=== PATIENT | male | born 1940 | race Caucasian/White ===

== ENCOUNTER → 2016-10-26 | Outpatient (CLI) | payer OTHER ==
[2014-09-27 09:19] VITALS: BP 125/60
[~2016-10-26] MED LIST: ACET500T33 PO; AMIO200T2 PO; ASPI81TA2 PO; CARV3.122 PO; CHOL200044 PO; CITA10TA4 PO; DOCU-27 PO; DOCU50CA9 PO; GEMF600T3 PO; GLIP5TAB22 PO; HYDR-2869 PO; Hydrocodone/Acetaminophen PO; LANS15TA5 PO; LEVO50TA5 PO; METF500T4 PO; MINO2.5T12 PO; MULT-246 PO; NAPR220T70 PO; NITR0.4T SL; OLME40TA PO; OMEG1CAP30 PO; OMEG1CAP6 PO; PRAS10TA9 PO; SIMV40TA3 PO; ZOLP10TA PO; ZOLP10TA4 PO
== END | disposition home or self-care (01) ==
LOC: PF 07:42
PROVIDERS: ATTEND Internal Medicine Cardiovascular Disease
DX: Z51.81 Encounter for therapeutic drug level monitoring (principal)
CPT/HCPCS: 94010; 94729

== ENCOUNTER 2017-06-12 06:35 | Outpatient (CLI) | payer OTHER ==
[2017-06-12] MEDS ORDERED: IODIXANOL 320 MG/ML 100 ML VIAL. (07:04)
[2017-06-12] MEDS ORDERED: LIDOCAINE 2% 20 ML VIAL. (07:04)
[2017-06-12 07:27] LABS: HEMATOCRIT 37.4 % (39.0-53.0); HEMOGLOBIN 12.3 g/dL (13.0-17.5); MEAN CORPUSCULAR HEMOGLOBIN 29 pg (25-35); MEAN CORPUSCULAR HGB CONC 33 g/dL (31-37); MEAN CORPUSCULAR VOLUME 88 fL (79-100); PLATELET COUNT 197 x10^3/uL (140-400); RED BLOOD COUNT 4.27 x10^6/uL (4.30-5.70); RED CELL DISTRIBUTION WIDTH 13.8 % (11.5-14.5); WHITE BLOOD COUNT 9.2 x10^3/uL (4.0-11.0)
[2017-06-12 07:38] LABS: PROTHROMBIN TIME PATIENT 12.8 SEC (11.7-14.0)
[2017-06-12 08:01] LABS: ANION GAP 12 (6-14); BLOOD UREA NITROGEN 30 mg/dL (8-26); CALCIUM 8.9 mg/dL (8.5-10.1); CARBON DIOXIDE 25 mmol/L (21-32); CHLORIDE 104 mmol/L (98-107); CREATININE 1.3 mg/dL (0.7-1.3); GFR 53.7; GLUCOSE 253 mg/dL (70-99); POTASSIUM 4.5 mmol/L (3.5-5.1); SODIUM 141 mmol/L (136-145)
[2017-06-12] MEDS ORDERED: FAMOTIDINE 20 MG/2 ML VIAL (08:03)
[2017-06-12] MEDS ORDERED: diphenhydrAMINE 50 MG/ML VIAL (08:04)
[2017-06-12] MEDS ORDERED: MIDAZOLAM HCL/PF 2 MG/2 ML VIAL. (08:04)
[2017-06-12] MEDS ORDERED: fentaNYL PF VIAL 100 MCG/2 ML VIAL (08:04)
[2017-06-12] MEDS: FAMOTIDINE 20 MG/2 ML VIAL IVP (08:05)
[2017-06-12] MEDS: diphenhydrAMINE 50 MG/ML VIAL IVP (08:06)
[2017-06-12] MEDS ORDERED: HEPARIN for IV BOLUS 10,000 UNIT/10 ML VIAL. (08:29)
[2017-06-12] MEDS: HEPARIN for IV BOLUS 10,000 UNIT/10 ML VIAL. IART (08:45)
[2017-06-12] MEDS: fentaNYL PF VIAL 100 MCG/2 ML VIAL IV (08:45)
[2017-06-12] MEDS: LIDOCAINE 2% 20 ML VIAL. IJ (08:45)
[2017-06-12] MEDS: IODIXANOL 320 MG/ML 100 ML VIAL. IART (08:45)
[2017-06-12] MEDS: MIDAZOLAM HCL/PF 2 MG/2 ML VIAL. IV (08:45)
[2017-06-12] MEDS ORDERED: CONTRAST GIVEN MC (09:00)
[2017-06-12] MEDS ORDERED: 0.9 % SODIUM CHLORIDE 10 ML DISP.SYRIN. IV (10:45)
[2017-06-12] MEDS ORDERED: NITROGLYCERIN SUBLINGUAL 0.4 MG BOTTLE OF 25. SL (10:45)
== END 2017-06-12 13:09 | disposition home or self-care (01) ==
LOC: CCL 06:35
DX: I70.293 Other atherosclerosis of native arteries of extremities, bilateral legs (principal); I25.10 Atherosclerotic heart disease of native coronary artery without angina pectoris; I10 Essential (primary) hypertension; E78.5 Hyperlipidemia, unspecified
CPT/HCPCS: 36246; 36415; 75625; 75630; 75716; 80048; 85027; 85610; 99151; 99153; C1769; C1892; J1200; J1644; J2250; J3010; S0028

== ENCOUNTER → 2017-08-11 | Outpatient (CLI) | payer OTHER ==
[2017-08-11] MEDS: REGADENOSON 0.4 MG/5 ML DISP.SYRIN. IV (09:41)
== END | disposition home or self-care (01) ==
LOC: NM 08:30
DX: I25.10 Atherosclerotic heart disease of native coronary artery without angina pectoris (principal); I44.7 Left bundle-branch block, unspecified; E11.9 Type 2 diabetes mellitus without complications; Z79.01 Long term (current) use of anticoagulants; Z87.891 Personal history of nicotine dependence
CPT/HCPCS: 78452; 93017; 96374; 96375; 96376; A9500; J2785

== ENCOUNTER → 2018-08-08 | Outpatient (CLI) | payer MEDICARE, OTHER ==
[2017-06-12 12:20] VITALS: BP 141/64
[~2018-08-08] MED LIST changes: -AMIO200T2 PO; +AMIO200T4 PO; +APIX5TAB PO; +ASPI-630 PO; -ASPI81TA2 PO; +CARV3.1210 PO; -CARV3.122 PO; +DOCU-109 PO; -DOCU-27 PO; +FERR325T72 PO; -GEMF600T3 PO; +GEMF600T8 PO; -LANS15TA5 PO; +LANS15TA6 PO; +LEVO75TA5 PO; +METF500T16 PO; -METF500T4 PO; +METO-239 PO; -OLME40TA PO; +OLME40TA12 PO; +POLY17PO29 PO; +VALS160T3 PO; +[UNRECOGNIZED DRUG - CODE] PO
--- NOTE | 2018-08-08 15:02 | CARD ---
MR#: [id number] Date of Study: 08/08/2018 Ordering Physician: HUSSEIN CHACON, Referring Physician: HUSSEIN CHACON, Tech: Guerita Torres APPROVED REPORT EXAM: Two-dimensional and M-mode echocardiogram with Doppler and color Doppler. Other Information Quality : FairHR: 63bpm Technically limited study due to body habitus. INDICATION Cardiomyopathy RISK FACTORS Hypertension Hyperlipidemia Diabetes Previous smoker 2D DIMENSIONS RVDd4.4 (2.9-3.5cm)Left Atrium(2D)4.9 (1.6-4.0cm) IVSd1.6 (0.7-1.1cm)Aortic Root(2D)3.2 (2.0-3.7cm) LVDd6.1 (3.9-5.9cm)LVOT Diameter2.5 (1.8-2.4cm) PWd1.6 (0.7-1.1cm)LVDs4.4 (2.5-4.0cm) FS (%) 27.9 %SV98.7 ml LVEF(%)53.2 (>50%) Aortic Valve AoV Peak Derek.153.9cm/sAoV VTI36.1cm AO Peak GR.9.5mmHgLVOT Peak Derek.96.9cm/s AO Mean GR.5mmHgAVA (VMAX)3.01cm2 Mitral Valve MV E Tmncwaln47.7cm/sMV DECEL [id number] MV A Jkvrnlys84.4cm/sE/A Ratio1.1 Pulmonary Valve PV Peak Wdhkvipe99.9cm/s Tricuspid Valve TR P. Umbepmdg893oj/sRAP PDKZCMAB3otDo TR Peak Gr.85yoNyWCUR24lrBv Pulmonary Vein S1 Jawpmcjl92.7cm/sD2 Zeizvvcc40.6cm/s PVa [id number] LEFT VENTRICLE Technically difficult study. The Left Ventricle is mildly dilated. Proximal septal thickening is note d. The left ventricular systolic function is mildly decreased. The Ejection Fraction is estimated at 40%. There is mild global hypokinesis of the left ventricle. Transmitral Doppler flow pattern is Grad e II-pseudonormal filling dynamics. RIGHT VENTRICLE The right ventricle is normal size. There is normal right ventricular wall thickness. The right ventr icular systolic function is normal. ATRIA The left atrium is mildly dilated. The right atrium size is normal. The interatrial septum is intact with no evidence for an atrial septal defect or patent foramen ovale as noted on 2-D or Doppler imagi ng. AORTIC VALVE The aortic valve is normal in structure and function. Doppler and Color Flow revealed no significant aortic regurgitation. There is no significant aortic valvular stenosis. MITRAL VALVE The mitral valve is normal in structure and function. There is no evidence of mitral valve prolapse. There is no mitral valve stenosis. Doppler and Color Flow revealed mild mitral valve regurgitation. TRICUSPID VALVE The tricuspid valve is normal in structure and function. Doppler and Color Flow revealed trace to mil d tricuspid regurgitation. There is no tricuspid valve stenosis. PULMONIC VALVE The pulmonary valve is normal in structure and function. Doppler and Color Flow revealed trace pulmon ic valvular regurgitation. GREAT VESSELS The aortic root is normal in size. The IVC was not visualized. PERICARDIAL EFFUSION There is no evidence of significant pericardial effusion. Critical Notification Critical Value: No <Conclusion> Technically difficult study. The Left Ventricle is mildly dilated. The left ventricular systolic function is mildly decreased. The Ejection Fraction is estimated at 40%. There is mild global hypokinesis of the left ventricle. There is no significant aortic valvular stenosis. Doppler and Color Flow revealed no significant aortic regurgitation. Doppler and Color Flow revealed mild mitral valve regurgitation. Doppler and Color Flow revealed trace to mild tricuspid regurgitation. Signed by : Hussein Chacon MD Electronically Approved : 08/08/2018 15:02:11
== END | disposition home or self-care (01) ==
LOC: ECHO 12:43
PROVIDERS: ATTEND Internal Medicine Cardiovascular Disease
DX: I34.0 Nonrheumatic mitral (valve) insufficiency (principal); I42.9 Cardiomyopathy, unspecified
CPT/HCPCS: 93306

== ENCOUNTER 2018-09-12 18:52 | Inpatient (IN) | payer MEDICARE, OTHER ==
[~2018-09-12] VITALS: Ht 170.2 cm; Wt 106.3 kg
[~2018-09-12 18:52] MED LIST changes: -FERR325T72 PO; -LEVO75TA5 PO; -METO-239 PO; -POLY17PO29 PO; -[UNRECOGNIZED DRUG - CODE] PO
[2018-09-12] MEDS ORDERED: IV NORMAL SALINE 500ML BAG 500 ML IV ONE (19:30)
--- NOTE | 2018-09-12 19:47 | PHYS DOC ---
Past Medical History Past Medical History: Arthritis, CAD, Diabetes-Type II, Other Additional Past Medical Histor: neuropathy Past Surgical History: Other Additional Past Surgical Histo: L3-4, heart stent, leg stent Alcohol Use: None Drug Use: None Adult General Chief Complaint Chief Complaint: DIZZY/LIGHT HEADED HPI HPI 78-year-old male presents to ER via POV for complaints of dizziness. Patient reports his blood pressure at home was 98 systolic and he had taken his blood pressure medication this morning which she had recently stopped taking. He reports when he went to stand up just prior to arrival to ER he became dizzy denies falls, loss of consciousness, or headache. Patient states he has had intermittent headache over the past few weeks denies confusion, falls, or recent injury. He reports over the past several days he has had darker stools. He reports he has had some lower abdominal pain reporting history of diverticulitis. He states he was started on Flagyl and Cipro yesterday by his primary care physician. Patient reports he is on Eliquis for history of CABG. Patient denies any chest pain. He reports he has felt more PVCs in the past several days with exertion and activity. He denies vomiting or diarrhea episodes. Patient's Lea at bedside states she feels patient had fever patient is afebrile at this time. RN reported that patient had mentioned to her that he had a phone call this morning reporting his hemoglobin was 7.4. Review of Systems Review of Systems Constitutional: Reports felt feverish last night. Reports generalized fatigue. Denies loss of consciousness or confusion Eyes: Denies change in visual acuity, redness, or eye pain [] HENT: Denies nasal congestion or sore throat [] Respiratory: Denies cough or shortness of breath [] Cardiovascular: Reports he has been feeling PVCs/palpitations. Denies chest pain GI: Denies nausea, vomiting, bloody stools or diarrhea. Reports lower mid to left side abdominal pain. Reports feels bloated : Denies urinary sxs Musculoskeletal: Denies back/neck pain or joint pain [] Integument: Denies rash or skin lesions [] Neurologic: Denies focal weakness or sensory changes. Reports intermittent dizziness. Reports intermittent headache. Endocrine: Denies polyuria or polydipsia [] All other systems were reviewed and found to be within normal limits, except as documented in this note. Current Medications Current Medications Current Medications Medications (Trade) Dose Ordered Sig/Jadyn Start Time Stop Time Status Last Admin Dose Admin Sodium Chloride 500 ml @ 500 mls/hr 1X ONCE 09/12/18 19:30 09/12/18 20:29 DC 09/12/18 20:11 500 MLS/HR Allergies Allergies Physical Exam Physical Exam Constitutional: Well developed, well nourished, no acute distress, non-toxic appearance. Clear speech HENT: Normocephalic, atraumatic, bilateral ears normal, mucous membranes pale/ moist, no oral exudates, nose normal. Facial skin tone pale Eyes: PERRLA, no nystagmus, conjunctiva pale, no discharge. [] Neck: Normal range of motion, no tenderness, supple, no stridor. [] Cardiovascular: Heart rate regular rhythm, no murmur [] Lungs & Thorax: Bilateral breath sounds clear to auscultation- resp. equal/ nonlabored Abdomen: Bowel sounds normal, soft/obese, tender on palp. mid lower to left lower abd, no masses, no pulsatile masses. [] Skin: Warm, dry, no erythema, no rash. [] Back: No tenderness, no CVA tenderness. [] Extremities: No tenderness, no cyanosis, no clubbing, ROM intact, 1+ bilat. pedal edema nonpitting. 2+ dorsalis pedis Neurologic: Alert and oriented X 3, normal motor function, normal sensory function, no focal deficits noted. [] Psychologic: Affect normal, judgement normal, mood normal. [] 2039 rectal exam complete with RN at bedside for web site specialist. No external hemorrhoids or palpable internal hemorrhoids on exam. No obvious gross blood. Current Patient Data Vital Signs Vital Signs Date Time Temp Pulse Resp B/P (MAP) Pulse Ox O2 Delivery O2 Flow Rate FiO2 09/12/18 21:12 63 94 09/12/18 19:00 98.5 20 171/85 (113) Room Air 98.5 Lab Values Laboratory Tests Test 09/12/18 19:10 09/12/18 19:35 09/12/18 20:40 Urine Collection Type Unknown Urine Color Yellow Urine Clarity Clear Urine pH 6.0 Urine Specific [place] 1.015 Urine Protein Negative mg/dL (NEG-TRACE) Urine Glucose (UA) Negative mg/dL (NEG) Urine Ketones (Stick) Negative mg/dL (NEG) Urine Blood Negative (NEG) Urine Nitrite Negative (NEG) Urine Bilirubin Negative (NEG) Urine Urobilinogen Dipstick 0.2 mg/dL (0.2 mg/dL) Urine Leukocyte Esterase Negative (NEG) Urine RBC 0 /HPF (0-2) Urine WBC Occ /HPF (0-4) Urine Transitional Epithelial Cells Few /LPF Urine Bacteria 0 /HPF (0-FEW) Urine Hyaline Casts Many /HPF Urine Mucus Mod /LPF White Blood Count 6.2 x10^3/uL (4.0-11.0) Red Blood Count 2.28 x10^6/uL (4.30-5.70) L Hemoglobin 7.0 g/dL (13.0-17.5) *L Hematocrit 21.0 % (39.0-53.0) *L Mean Corpuscular Volume 92 fL (79-100) Mean Corpuscular Hemoglobin 31 pg (25-35) Mean Corpuscular Hemoglobin Concent 33 g/dL (31-37) Red Cell Distribution Width 15.1 % (11.5-14.5) H Platelet Count 201 x10^3/uL (140-400) Neutrophils (%) (Auto) 58 % (31-73) Lymphocytes (%) (Auto) 27 % (24-48) Monocytes (%) (Auto) 12 % (0-9) H Eosinophils (%) (Auto) 2 % (0-3) Basophils (%) (Auto) 1 % (0-3) Neutrophils # (Auto) 3.6 x10^3uL (1.8-7.7) Lymphocytes # (Auto) 1.7 x10^3/uL (1.0-4.8) Monocytes # (Auto) 0.7 x10^3/uL (0.0-1.1) Eosinophils # (Auto) 0.1 x10^3/uL (0.0-0.7) Basophils # (Auto) 0.0 x10^3/uL (0.0-0.2) Prothrombin Time 13.9 SEC (11.7-14.0) Prothrombin Time INR 1.1 (0.8-1.1) PTT 43 SEC (24-38) H Sodium Level 141 mmol/L (136-145) Potassium Level 4.4 mmol/L (3.5-5.1) Chloride Level 104 mmol/L (98-107) Carbon Dioxide Level 22 mmol/L (21-32) Anion Gap 15 (6-14) H Blood Urea Nitrogen 50 mg/dL (8-26) H Creatinine 2.0 mg/dL (0.7-1.3) H Estimated GFR (Cockcroft-Gault) 32.6 BUN/Creatinine Ratio 25 (6-20) H Glucose Level 112 mg/dL (70-99) H Calcium Level 8.7 mg/dL (8.5-10.1) Total Bilirubin 0.2 mg/dL (0.2-1.0) Aspartate Amino Transferase (AST) 17 U/L (15-37) Alanine Aminotransferase (ALT) 21 U/L (16-63) Alkaline Phosphatase 38 U/L (46-116) L Troponin I Quantitative < 0.017 ng/mL (0.000-0.055) FX-Tda-Z-Type Natriuretic Peptide 1364 pg/mL (0-449) H Total Protein 6.9 g/dL (6.4-8.2) Albumin 3.6 g/dL (3.4-5.0) Albumin/Globulin Ratio 1.1 (1.0-1.7) Lipase 345 U/L (73-393) Stool Occult Blood Negative (NEG) Laboratory Tests 09/12/18 19:35 Laboratory Tests 09/12/18 19:35 EKG EKG EKG obtained 09/12/18 Interpreted by ER physician Radiology/Procedures Radiology/Procedures PROCEDURE: CT HEAD WO CONTRAST INDICATION: dizzy, headaches, no priors COMPARISON: None. TECHNIQUE: Axial CT images obtained through the head without intravenous contrast. One or more of the following individualized dose reduction techniques were utilized for this examination: 1. Automated exposure control; 2. Adjustment of the mA and/or kV according to patient size; 3. Use of iterative reconstruction technique. FINDINGS: No intracranial hemorrhage. No midline shift. Basal cisterns patents. Ventricles and sulci are globally prominent. No acute osseous abnormality. Orbits and paranasal sinuses unremarkable. Scattered foci of low attenuation within the white matter. Bowing of nasal septum. IMPRESSION: 1. No acute intracranial hemorrhage. 2. Scattered regions of low attenuation within the white matter. Non-specific in nature but frequently secondary to chronic small vessel ischemic disease. 3. Prominence of ventricles and sulci which is frequently secondary to age related volume loss. Electronically signed by: Jil Rogers MD (09/12/2018 8:10 PM) [facility] DICTATED and SIGNED BY: JIL ROGERS MD DATE: 09/12/182009 Course & Med Decision Making Course & Med Decision Making Pertinent Labs and Imaging studies reviewed. (See chart for details) 2039: Discussed test results with patient and his . Hemoglobin is 7.0 hematocrit 21.0 renal function elevated at 50/2.0. EKG with no acute ST elevation or STEMI and troponin was <0.017. Head CT was obtained for patient's complaints of dizziness and recent intermittent HAs results with no acute findings. Discussed plans for type and cross and transfusion of 2 units packed red cells as patient is symptomatic. Rectal exam was complete with no obvious gross blood. Admission was discussed- pt agreeable with admit plan. Spoke with Dr. Grande who is oncall for pt's PCP Dr. Mckeon and discussed pt's case. Will change orders per her request and transfuse 1 unit vs 2. Will admit to Telemetry floor for further evaluation. Pt had neg. fecal occult. Admit plan was discussed with pt and his . Pt is receiving blood transfusion when discussion was had regarding Dr. Grande's phone call. He reports he is feeling better than at time of arrival. He remains A&Ox3 and currently is denying dizziness. He reports he does continue to feel fatigued denying any other sxs. VS have remained stable. at bedside during discussion. Dragon Disclaimer Dragon Disclaimer This electronic medical record was generated, in whole or in part, using a voice recognition dictation system. Departure Departure Impression: Primary Impression: Anemia Additional Impression: Dizziness Disposition: 09 ADMITTED INPATIENT Admitting Physician: Josh Mckeon Condition: STABLE Referrals: Zakiya MCKEON MD (PCP) Scripts Metoprolol Succinate (METOPROLOL SUCCINATE ( XL )) 25 Mg Tab.er.24h 25 MG PO DAILY for heart for 30 Days, #30 TAB.SR 11 Refills Prov: Zakiya MCKEON MD 09/16/18 Ferrous Sulfate (FEOSOL) 325 Mg Tablet 325 MG PO BIDWMEALS for anemia for 30 Days, #60 TAB 2 Refills Prov: Zakiya MCKEON MD 09/16/18 Problem Qualifiers REFFITTERIN APRN Sep 12, 2018 19:47
[2018-09-12 19:50] LABS: BILIRUBIN,URINE NEGATIVE (NEG); CLARITY,URINE CLEAR; COLOR,URINE YELLOW; NITRITE,URINE NEGATIVE (NEG); PROTEIN,URINE NEGATIVE (NEG-TRACE); UROBILINOGEN,URINE 0.2 mg/dL (0.2 mg/dL)
[2018-09-12 19:51] LABS: BASO % 1 % (0-3); EOS # 0.1 x10^3/uL (0.0-0.7); EOS % 2 % (0-3); LYMPH # 1.7 x10^3/uL (1.0-4.8); LYMPH % 27 % (24-48); MEAN CORPUSCULAR HEMOGLOBIN 31 pg (25-35); MEAN CORPUSCULAR HGB CONC 33 g/dL (31-37); MEAN CORPUSCULAR VOLUME 92 fL (79-100); MONO # 0.7 x10^3/uL (0.0-1.1); MONO % 12 % (0-9); NEUT # 3.6 x10^3uL (1.8-7.7); NEUT % 58 % (31-73); PLATELET COUNT 201 x10^3/uL (140-400); RED BLOOD COUNT 2.28 x10^6/uL (4.30-5.70); RED CELL DISTRIBUTION WIDTH 15.1 % (11.5-14.5); WHITE BLOOD COUNT 6.2 x10^3/uL (4.0-11.0)
[2018-09-12 19:54] LABS: HYALINE CASTS, URINE MANY /HPF
[2018-09-12 19:55] LABS: BACTERIA,URINE 0 /HPF (0-FEW); RBC,URINE 0 /HPF (0-2); WBC,URINE OCC /HPF (0-4)
[2018-09-12 19:59] LABS: PROTHROMBIN TIME PATIENT 13.9 SEC (11.7-14.0)
[2018-09-12 20:00] LABS: CALCIUM 8.7 mg/dL (8.5-10.1); GFR 32.6; POTASSIUM 4.4 mmol/L (3.5-5.1)
[2018-09-12 20:06] LABS: ALBUMIN 3.6 g/dL (3.4-5.0); ALBUMIN/GLOBULIN RATIO 1.1 (1.0-1.7); TOTAL BILIRUBIN 0.2 mg/dL (0.2-1.0); TOTAL PROTEIN 6.9 g/dL (6.4-8.2)
--- NOTE | 2018-09-12 20:13 | RAD ---
INDICATION: dizzy, headaches, no priors COMPARISON: None. TECHNIQUE: Axial CT images obtained through the head without intravenous contrast. One or more of the following individualized dose reduction techniques were utilized for this examination: 1. Automated exposure control; 2. Adjustment of the mA and/or kV according to patient size; 3. Use of iterative reconstruction technique. FINDINGS: No intracranial hemorrhage. No midline shift. Basal cisterns patents. Ventricles and sulci are globally prominent. No acute osseous abnormality. Orbits and paranasal sinuses unremarkable. Scattered foci of low attenuation within the white matter. Bowing of nasal septum. IMPRESSION: 1. No acute intracranial hemorrhage. 2. Scattered regions of low attenuation within the white matter. Non-specific in nature but frequently secondary to chronic small vessel ischemic disease. 3. Prominence of ventricles and sulci which is frequently secondary to age related volume loss. Electronically signed by: Reza Gandhi MD (09/12/2018 8:10 PM) [facility]
[2018-09-12 20:51] LABS: FECAL OB PT NEGATIVE (NEG)
[2018-09-12 21:57] VITALS: BP 99/56
[2018-09-12 22:11] VITALS: BP 114/56
[2018-09-12] MEDS ORDERED: ACETAMINOPHEN 325 MG TABLET. PO PRN (22:30)
[2018-09-13] VITALS (14 sets, daily range): BP systolic 115–152; BP diastolic 38–107
--- NOTE | 2018-09-13 00:56 | NUR ---
The patient, LELO MENDOZA, 78 y/o, M admitted by Zakiya HERNANDEZ MD, was given written information regarding hospital policies, unit procedures and contact persons. Valuables were checked and left with . Patient in bed with at bedside.
[2018-09-13] MEDS ORDERED: LEVO75TA5 PO (01:47)
[2018-09-13] MEDS ORDERED: [UNRECOGNIZED DRUG - CODE] PO (01:47)
[2018-09-13 04:17] LABS: BASO # 0.1 x10^3/uL (0.0-0.2); BASO % 1 % (0-3); EOS # 0.1 x10^3/uL (0.0-0.7); EOS % 2 % (0-3); HEMATOCRIT 21.8 % (39.0-53.0); HEMOGLOBIN 7.2 g/dL (13.0-17.5); LYMPH # 1.6 x10^3/uL (1.0-4.8); LYMPH % 32 % (24-48); MEAN CORPUSCULAR HEMOGLOBIN 30 pg (25-35); MEAN CORPUSCULAR HGB CONC 33 g/dL (31-37); MEAN CORPUSCULAR VOLUME 91 fL (79-100); MONO # 0.6 x10^3/uL (0.0-1.1); MONO % 12 % (0-9); NEUT # 2.6 x10^3uL (1.8-7.7); NEUT % 52 % (31-73); PLATELET COUNT 171 x10^3/uL (140-400); RED CELL DISTRIBUTION WIDTH 15.5 % (11.5-14.5)
[2018-09-13 04:42] LABS: CALCIUM 8.4 mg/dL (8.5-10.1); CREATININE 1.8 mg/dL (0.7-1.3); GFR 36.8
--- NOTE | 2018-09-13 07:08 | EKG ---
[facility] [address] [place] [address] Test Date: 2018-09-12 Test Time: 19:29:49 Pat Name: LELO MENDOZA Department: Room: [facility] Gender: M Scheduling Assistant: : [id number] Requested By: ERIN NORTH Order Number: [id number] Reading MD: Canelo Fung MD Measurements Intervals [place] Rate: 59 P: RI: QRS: -12 QRSD: 110 T: 154 QT: 464 QTc: 464 Interpretive Statements ATRIAL FIBRILLATION WITH CONTROLLED VENTRICULAR RESPONSE IVCD LATERAL TWI Electronically Signed On 09-24-2018 10:04:04 CDT by Canelo Fung MD
[2018-09-13] MEDS ORDERED: PANTOPRAZOLE IV PUSH 40 MG VIAL. IVP SCH (07:30)
--- NOTE | 2018-09-13 07:36 | PDOC1 ---
History and Physical Date of Admission Date of Admission 09/12/18 Identification/Chief Complaint Chief Complaint GI Bleed Source Source: Patient History of Present Illness History of Present Illness Pt states that he has been having black stools for the past 2 weeks. On Monday noticed that he was dizzy and that his blood pressure was really low. Held all of his BP meds until he saw Dr. Mckeon on the . Dr. Mckeon started pt on Iron and antibiotics for possible diverticulitis. Pt has history of diverticulitis. Has been having a sharp stabbing pain in his lower abdomen that is intermittent since around Monday. He has issues with constipation. Last BM was yesterday am. Pt in on Eliquis and this was being held since he saw Dr. Mckeon. His felt like he may have had a fever one evening, but otherwise denies fevers and chills. He has had issues with a chronic cough over the entire winter that is non productive. Pt has known PAD with increased pain in his legs for the past couple of months. Pt has noticed that it feels like his heart is skipping beats whenever he does something that is more strenuous. Past Medical History Cardiovascular: CAD, CHF, HTN, Hyperlipidemia Pulmonary: No pertinent hx GI: Diverticulosis, GI bleed Heme/Onc: Iron deficiency Anemia Hepatobiliary: No pertinent hx Psych: No pertinent hx Rheumatologic: No pertinent hx Infectious disease: No pertinent hx ENT: No pertinent hx Renal/: Chronic renal insuff Endocrine: Diabetes, Hypothyroidism Dermatology: No pertinent hx Past Surgical History Past Surgical History: CABG, Other (back surgery) Family History Family History: Heart Disease Social History Smoke: Quit ALCOHOL: rare Drugs: None Current Medications Current Medications Current Medications Medications (Trade) Dose Ordered Sig/Jadyn Start Time Stop Time Status Last Admin Dose Admin Acetaminophen (Tylenol) 650 mg PRN Q4HRS PRN 09/12/18 22:30 09/13/18 22:29 Sodium Chloride 500 ml @ 500 mls/hr 1X ONCE 09/12/18 19:30 09/12/18 20:29 DC 09/12/18 20:11 500 MLS/HR Allergies Allergies Allergies Coded Allergies Type Severity Reaction Last Updated Verified Iodinated Contrast- Oral and IV Dye Allergy Intermediate 09/12/18 Yes ROS Review of System CONSTITUTIONAL: No fever or chills EYES: No recent changes SKIN: No rash or itching CARDIOVASCULAR: No chest pain, syncope, + palpitations, edema RESPIRATORY: No SOB, +cough GASTROINTESTINAL: No nausea, vomiting, +abdominal pain NEUROLOGICAL: No headaches or weakness ENDOCRINE: No cold or heat intolerance GENITOURINARY: No urgency, +chronic frequency of urination MUSCULOSKELETAL: No back pain or joint pain LYMPHATICS: No enlarged lymph nodes PSYCHIATRIC: No anxiety or depression Physical Exam Physical Exam GEN.: No apparent distress. Alert and oriented. HEENT: Head is normocephalic, atraumatic NECK: Supple. LUNGS: Clear to auscultation. HEART: RRR, S1, S2 present. Peripheral pulses intact ABDOMEN: Distended, nontender. Positive bowel sounds. EXTREMITIES: Without any cyanosis, 1+ pitting edema RLE NEUROLOGIC: Normal speech, normal tone PSYCHIATRIC: Normal affect, normal mood. SKIN: No ulcerations Vitals Vitals Vital Signs Date Time Temp Pulse Resp B/P (MAP) Pulse Ox O2 Delivery O2 Flow Rate FiO2 09/13/18 03:10 98.2 56 16 115/41 (65) 97 Room Air 98.2 Labs Labs Laboratory Tests Test 09/12/18 19:10 09/12/18 19:35 09/12/18 20:40 09/13/18 03:35 Urine Collection Type Unknown Urine Color Yellow Urine Clarity Clear Urine pH 6.0 Urine Specific [place] 1.015 Urine Protein Negative mg/dL (NEG-TRACE) Urine Glucose (UA) Negative mg/dL (NEG) Urine Ketones (Stick) Negative mg/dL (NEG) Urine Blood Negative (NEG) Urine Nitrite Negative (NEG) Urine Bilirubin Negative (NEG) Urine Urobilinogen Dipstick 0.2 mg/dL (0.2 mg/dL) Urine Leukocyte Esterase Negative (NEG) Urine RBC 0 /HPF (0-2) Urine WBC Occ /HPF (0-4) Urine Transitional Epithelial Cells Few /LPF Urine Bacteria 0 /HPF (0-FEW) Urine Hyaline Casts Many /HPF Urine Mucus Mod /LPF White Blood Count 6.2 x10^3/uL (4.0-11.0) 5.0 x10^3/uL (4.0-11.0) Red Blood Count 2.28 x10^6/uL (4.30-5.70) 2.40 x10^6/uL (4.30-5.70) Hemoglobin 7.0 g/dL (13.0-17.5) 7.2 g/dL (13.0-17.5) Hematocrit 21.0 % (39.0-53.0) 21.8 % (39.0-53.0) Mean Corpuscular Volume 92 fL (79-100) 91 fL (79-100) Mean Corpuscular Hemoglobin 31 pg (25-35) 30 pg (25-35) Mean Corpuscular Hemoglobin Concent 33 g/dL (31-37) 33 g/dL (31-37) Red Cell Distribution Width 15.1 % (11.5-14.5) 15.5 % (11.5-14.5) Platelet Count 201 x10^3/uL (140-400) 171 x10^3/uL (140-400) Neutrophils (%) (Auto) 58 % (31-73) 52 % (31-73) Lymphocytes (%) (Auto) 27 % (24-48) 32 % (24-48) Monocytes (%) (Auto) 12 % (0-9) 12 % (0-9) Eosinophils (%) (Auto) 2 % (0-3) 2 % (0-3) Basophils (%) (Auto) 1 % (0-3) 1 % (0-3) Neutrophils # (Auto) 3.6 x10^3uL (1.8-7.7) 2.6 x10^3uL (1.8-7.7) Lymphocytes # (Auto) 1.7 x10^3/uL (1.0-4.8) 1.6 x10^3/uL (1.0-4.8) Monocytes # (Auto) 0.7 x10^3/uL (0.0-1.1) 0.6 x10^3/uL (0.0-1.1) Eosinophils # (Auto) 0.1 x10^3/uL (0.0-0.7) 0.1 x10^3/uL (0.0-0.7) Basophils # (Auto) 0.0 x10^3/uL (0.0-0.2) 0.1 x10^3/uL (0.0-0.2) Prothrombin Time 13.9 SEC (11.7-14.0) Prothromb Time International Ratio 1.1 (0.8-1.1) Activated Partial Thromboplast Time 43 SEC (24-38) Sodium Level 141 mmol/L (136-145) 143 mmol/L (136-145) Potassium Level 4.4 mmol/L (3.5-5.1) 4.0 mmol/L (3.5-5.1) Chloride Level 104 mmol/L (98-107) 107 mmol/L (98-107) Carbon Dioxide Level 22 mmol/L (21-32) 24 mmol/L (21-32) Anion Gap 15 (6-14) 12 (6-14) Blood Urea Nitrogen 50 mg/dL (8-26) 48 mg/dL (8-26) Creatinine 2.0 mg/dL (0.7-1.3) 1.8 mg/dL (0.7-1.3) Estimated GFR (Cockcroft-Gault) 32.6 36.8 BUN/Creatinine Ratio 25 (6-20) Glucose Level 112 mg/dL (70-99) 153 mg/dL (70-99) Calcium Level 8.7 mg/dL (8.5-10.1) 8.4 mg/dL (8.5-10.1) Total Bilirubin 0.2 mg/dL (0.2-1.0) Aspartate Amino Transf (AST/SGOT) 17 U/L (15-37) Alanine Aminotransferase (ALT/SGPT) 21 U/L (16-63) Alkaline Phosphatase 38 U/L (46-116) Troponin I Quantitative < 0.017 ng/mL (0.000-0.055) WC-Glx-W-Type Natriuretic Peptide 1364 pg/mL (0-449) Total Protein 6.9 g/dL (6.4-8.2) Albumin 3.6 g/dL (3.4-5.0) Albumin/Globulin Ratio 1.1 (1.0-1.7) Lipase 345 U/L (73-393) Stool Occult Blood Negative (NEG) Laboratory Tests Test 09/12/18 19:10 09/12/18 19:35 09/12/18 20:40 09/13/18 03:35 Urine Collection Type Unknown Urine Color Yellow Urine Clarity Clear Urine pH 6.0 Urine Specific [place] 1.015 Urine Protein Negative mg/dL (NEG-TRACE) Urine Glucose (UA) Negative mg/dL (NEG) Urine Ketones (Stick) Negative mg/dL (NEG) Urine Blood Negative (NEG) Urine Nitrite Negative (NEG) Urine Bilirubin Negative (NEG) Urine Urobilinogen Dipstick 0.2 mg/dL (0.2 mg/dL) Urine Leukocyte Esterase Negative (NEG) Urine RBC 0 /HPF (0-2) Urine WBC Occ /HPF (0-4) Urine Transitional Epithelial Cells Few /LPF Urine Bacteria 0 /HPF (0-FEW) Urine Hyaline Casts Many /HPF Urine Mucus Mod /LPF White Blood Count 6.2 x10^3/uL (4.0-11.0) 5.0 x10^3/uL (4.0-11.0) Red Blood Count 2.28 x10^6/uL (4.30-5.70) 2.40 x10^6/uL (4.30-5.70) Hemoglobin 7.0 g/dL (13.0-17.5) 7.2 g/dL (13.0-17.5) Hematocrit 21.0 % (39.0-53.0) 21.8 % (39.0-53.0) Mean Corpuscular Volume 92 fL (79-100) 91 fL (79-100) Mean Corpuscular Hemoglobin 31 pg (25-35) 30 pg (25-35) Mean Corpuscular Hemoglobin Concent 33 g/dL (31-37) 33 g/dL (31-37) Red Cell Distribution Width 15.1 % (11.5-14.5) 15.5 % (11.5-14.5) Platelet Count 201 x10^3/uL (140-400) 171 x10^3/uL (140-400) Neutrophils (%) (Auto) 58 % (31-73) 52 % (31-73) Lymphocytes (%) (Auto) 27 % (24-48) 32 % (24-48) Monocytes (%) (Auto) 12 % (0-9) 12 % (0-9) Eosinophils (%) (Auto) 2 % (0-3) 2 % (0-3) Basophils (%) (Auto) 1 % (0-3) 1 % (0-3) Neutrophils # (Auto) 3.6 x10^3uL (1.8-7.7) 2.6 x10^3uL (1.8-7.7) Lymphocytes # (Auto) 1.7 x10^3/uL (1.0-4.8) 1.6 x10^3/uL (1.0-4.8) Monocytes # (Auto) 0.7 x10^3/uL (0.0-1.1) 0.6 x10^3/uL (0.0-1.1) Eosinophils # (Auto) 0.1 x10^3/uL (0.0-0.7) 0.1 x10^3/uL (0.0-0.7) Basophils # (Auto) 0.0 x10^3/uL (0.0-0.2) 0.1 x10^3/uL (0.0-0.2) Prothrombin Time 13.9 SEC (11.7-14.0) Prothromb Time International Ratio 1.1 (0.8-1.1) Activated Partial Thromboplast Time 43 SEC (24-38) Sodium Level 141 mmol/L (136-145) 143 mmol/L (136-145) Potassium Level 4.4 mmol/L (3.5-5.1) 4.0 mmol/L (3.5-5.1) Chloride Level 104 mmol/L (98-107) 107 mmol/L (98-107) Carbon Dioxide Level 22 mmol/L (21-32) 24 mmol/L (21-32) Anion Gap 15 (6-14) 12 (6-14) Blood Urea Nitrogen 50 mg/dL (8-26) 48 mg/dL (8-26) Creatinine 2.0 mg/dL (0.7-1.3) 1.8 mg/dL (0.7-1.3) Estimated GFR (Cockcroft-Gault) 32.6 36.8 BUN/Creatinine Ratio 25 (6-20) Glucose Level 112 mg/dL (70-99) 153 mg/dL (70-99) Calcium Level 8.7 mg/dL (8.5-10.1) 8.4 mg/dL (8.5-10.1) Total Bilirubin 0.2 mg/dL (0.2-1.0) Aspartate Amino Transf (AST/SGOT) 17 U/L (15-37) Alanine Aminotransferase (ALT/SGPT) 21 U/L (16-63) Alkaline Phosphatase 38 U/L (46-116) Troponin I Quantitative < 0.017 ng/mL (0.000-0.055) MH-Cbf-X-Type Natriuretic Peptide 1364 pg/mL (0-449) Total Protein 6.9 g/dL (6.4-8.2) Albumin 3.6 g/dL (3.4-5.0) Albumin/Globulin Ratio 1.1 (1.0-1.7) Lipase 345 U/L (73-393) Stool Occult Blood Negative (NEG) VTE Prophylaxis Ordered VTE Prophylaxis Devices: No VTE Pharmacological Prophylaxi: No Assessment/Plan Assessment/Plan Pt is a 78yo CM admitted for GI Bleed 1)GI Bleed- possibly from diverticulitis. Pt is allergic to iodinated contrast dye; KUB and U/S ordered. GI consulted. FOBT negative but pt with Hb of 7 on admission and history of 2 weeks of black stools. Pt's Hb normally in the 11- 12 range. Pt received 1unit of PRBC with mild increase of Hb from 7 to 7.2. Pt will be receiving another unit this morning. 2)Hypotension due to above- normotensive with BP medications being held, including benicar/HCTZ, Carvedilol and HCTZ 3)CAD- pt's Eliquis currently being held. Cardiology consulted. Pt normally on Amiodarone 200mg qday. Pt having some rhythm irregularities on tele 4)HLD- pt's Simvastatin and gemfibrozil currently being held 5)GERD- pt's Prevacid currently being held, will start Pantoprazole 6)Hypothyroidism- will hold pt's Levothyroxine for now. TSH pending 7)DM2- previous HbA1C at goal, repeat pending. Will hold pt's metformin and Glipizide. Will start SSI if needed 8)CHF- diastolic and systolic, with mild fluid overload but no significant exacerbation. Will give gentle IVF hydration and hold off on diuretics for the moment given kidney function. 9)PAD 10)Acute on CKD- pt's Cr has improved slightly on admission from 2 to 1.8. Baseline Cr around 1.2-1.3. Will give gentle IVF hydration. HU CHAPA MD Sep 13, 2018 07:36
--- NOTE | 2018-09-13 07:43 | RAD ---
CHEST AP ONLY Clinical Indication: ER PATIENT. DIZZINESS, HYPOTENSIVE. Hx CABG, CORONARY STENTS. HTN, DIABETES. PRIOR XRAY
Comparison: 11/10/2015 two-view chest x-ray exam. Findings: Sternal wires and mediastinal clips are present. Heart size is borderline to slightly enlarged. This is similar to prior exam however. Lungs are clear. There is no pneumothorax. No pleural effusion is appreciated. No acute bone abnormality. IMPRESSION: No acute cardiopulmonary process. Electronically signed by: Yaw Thomas MD (09/13/2018 7:40 AM) [facility]
[2018-09-13] MEDS ORDERED: DEXTROSE 50% 25 GM / 50ML DISP.SYRIN. IV PRN (07:45)
[2018-09-13] MEDS: INSULIN LISPRO 300 UNITS/3 ML INSULN.PEN. SQ SCH ×3 (08:00→17:00)
[2018-09-13] MEDS: IV 1/2 NORMAL SALINE 1,000 ML IV SCH ×2 (09:04→20:50)
--- NOTE | 2018-09-13 09:17 | PDOC2 ---
GI CONSULT Reason For Consult: GI Bleed HPI: HPI: 78 y/o male admitted through ER. Black stools (some formed, some loose) x 2 weeks associated w/ hypotension (says 80/35 at home) and dizziness. Also intermittent LLQ/suprapubic pain. Says he saw Dr. Mckeon int he office, was advised to stop Eliquis and to start iron for low blood count and to start Cipro and Flagyl for presumed diverticulitis (has h/o this). Hgb was 7, now 7.2 after transfusion (1 unit pRBCs). MCV 92, normal plt and INR, BUN 50 (now 48) w/ Cr 2 (now 1.8), fecal occult negative, TSH >4. For comparison, Hgb was 12 in 2018 and 11 in 2015. Last stooled yesterday. H/o GERD on Prevacid Sun, Tues, Th, and Sat. No dysphagia (though had esophageal dilation years ago). No n/v, no hematemesis. No hematochezia. No diarrhea. H/o constipation controlled w/ stool softener and fiber. No change in appetite or weight loss. No NSAIDs. Reports EGD and colonoscopy w/ Dr. Hernández in [place], [place] ~3 years ago - says shows colon polyps and diverticulosis. These records are not available at our office. Denies GB, liver, pancreas, and PUD history. Note orders for KUB and abd US. PMH: PMH: CAD w/ stents, PVD w/ stents, A Fib, [place], HTN, HLD, [place], DM, hypothyroidism, CKD , peripheral neuropathy, GERD, colon polyps, diverticulosis/itis, anxiety/ depression CABG x 2, cardiac ablation, laminectomy and microdiscectomy, tonsillectomy, cataract removal FH: Family History: No pertinent hx Social History: Smoke: Quit ALCOHOL: rare Drugs: None ROS: GEN: Denies fevers, chills, sweats HEENT: Denies blurred vision, sore throat CV: Denies chest pain RESP: Denies shortness of air, cough GI: Per HPI : Denies hematuria, dysuria ENDO: Denies weight changes NEURO: +dizziness MSK: Denies weakness, joint pain/swelling SKIN: Denies jaundice, pruritus Vitals: Vitals: Vital Signs Date Time Temp Pulse Resp B/P (MAP) Pulse Ox O2 Delivery O2 Flow Rate FiO2 09/13/18 07:00 98.2 79 18 131/54 (79) 98 Room Air 98.2 Labs: Labs: Laboratory Tests Test 09/12/18 19:10 09/12/18 19:35 09/12/18 20:40 09/13/18 03:35 Urine Collection Type Unknown Urine Color Yellow Urine Clarity Clear Urine pH 6.0 Urine Specific [place] 1.015 Urine Protein Negative mg/dL (NEG-TRACE) Urine Glucose (UA) Negative mg/dL (NEG) Urine Ketones (Stick) Negative mg/dL (NEG) Urine Blood Negative (NEG) Urine Nitrite Negative (NEG) Urine Bilirubin Negative (NEG) Urine Urobilinogen Dipstick 0.2 mg/dL (0.2 mg/dL) Urine Leukocyte Esterase Negative (NEG) Urine RBC 0 /HPF (0-2) Urine WBC Occ /HPF (0-4) Urine Transitional Epithelial Cells Few /LPF Urine Bacteria 0 /HPF (0-FEW) Urine Hyaline Casts Many /HPF Urine Mucus Mod /LPF White Blood Count 6.2 x10^3/uL (4.0-11.0) 5.0 x10^3/uL (4.0-11.0) Red Blood Count 2.28 x10^6/uL (4.30-5.70) 2.40 x10^6/uL (4.30-5.70) Hemoglobin 7.0 g/dL (13.0-17.5) 7.2 g/dL (13.0-17.5) Hematocrit 21.0 % (39.0-53.0) 21.8 % (39.0-53.0) Mean Corpuscular Volume 92 fL (79-100) 91 fL (79-100) Mean Corpuscular Hemoglobin 31 pg (25-35) 30 pg (25-35) Mean Corpuscular Hemoglobin Concent 33 g/dL (31-37) 33 g/dL (31-37) Red Cell Distribution Width 15.1 % (11.5-14.5) 15.5 % (11.5-14.5) Platelet Count 201 x10^3/uL (140-400) 171 x10^3/uL (140-400) Neutrophils (%) (Auto) 58 % (31-73) 52 % (31-73) Lymphocytes (%) (Auto) 27 % (24-48) 32 % (24-48) Monocytes (%) (Auto) 12 % (0-9) 12 % (0-9) Eosinophils (%) (Auto) 2 % (0-3) 2 % (0-3) Basophils (%) (Auto) 1 % (0-3) 1 % (0-3) Neutrophils # (Auto) 3.6 x10^3uL (1.8-7.7) 2.6 x10^3uL (1.8-7.7) Lymphocytes # (Auto) 1.7 x10^3/uL (1.0-4.8) 1.6 x10^3/uL (1.0-4.8) Monocytes # (Auto) 0.7 x10^3/uL (0.0-1.1) 0.6 x10^3/uL (0.0-1.1) Eosinophils # (Auto) 0.1 x10^3/uL (0.0-0.7) 0.1 x10^3/uL (0.0-0.7) Basophils # (Auto) 0.0 x10^3/uL (0.0-0.2) 0.1 x10^3/uL (0.0-0.2) Prothrombin Time 13.9 SEC (11.7-14.0) Prothromb Time International Ratio 1.1 (0.8-1.1) Activated Partial Thromboplast Time 43 SEC (24-38) Sodium Level 141 mmol/L (136-145) 143 mmol/L (136-145) Potassium Level 4.4 mmol/L (3.5-5.1) 4.0 mmol/L (3.5-5.1) Chloride Level 104 mmol/L (98-107) 107 mmol/L (98-107) Carbon Dioxide Level 22 mmol/L (21-32) 24 mmol/L (21-32) Anion Gap 15 (6-14) 12 (6-14) Blood Urea Nitrogen 50 mg/dL (8-26) 48 mg/dL (8-26) Creatinine 2.0 mg/dL (0.7-1.3) 1.8 mg/dL (0.7-1.3) Estimated GFR (Cockcroft-Gault) 32.6 36.8 BUN/Creatinine Ratio 25 (6-20) Glucose Level 112 mg/dL (70-99) 153 mg/dL (70-99) Calcium Level 8.7 mg/dL (8.5-10.1) 8.4 mg/dL (8.5-10.1) Total Bilirubin 0.2 mg/dL (0.2-1.0) Aspartate Amino Transf (AST/SGOT) 17 U/L (15-37) Alanine Aminotransferase (ALT/SGPT) 21 U/L (16-63) Alkaline Phosphatase 38 U/L (46-116) Troponin I Quantitative < 0.017 ng/mL (0.000-0.055) CC-Kyh-J-Type Natriuretic Peptide 1364 pg/mL (0-449) Total Protein 6.9 g/dL (6.4-8.2) Albumin 3.6 g/dL (3.4-5.0) Albumin/Globulin Ratio 1.1 (1.0-1.7) Lipase 345 U/L (73-393) Stool Occult Blood Negative (NEG) Thyroid Stimulating Hormone (TSH) 4.748 uIU/mL (0.358-3.74) Test 09/13/18 07:26 Glucose (Fingerstick) 120 mg/dL (70-99) Allergies: Coded Allergies: Iodinated Contrast- Oral and IV Dye (Verified Allergy, Intermediate, ) V TACH Medications: Current Medications Medications (Trade) Dose Ordered Sig/Jadyn Route PRN Reason Start Time Stop Time Status Last Admin Dose Admin Sodium Chloride 500 ml @ 500 mls/hr 1X ONCE IV 09/12/18 19:30 09/12/18 20:29 DC 09/12/18 20:11 Pantoprazole Sodium (PROTONIX VIAL for IV PUSH) 20 mg DAILYAC IVP 09/13/18 07:30 09/13/18 08:54 Sodium Chloride 1,000 ml @ 75 mls/hr [id number] IV 09/13/18 07:30 09/13/18 09:04 Imaging: Imaging: CXR 09/12/18 IMPRESSION: No acute cardiopulmonary process. Head CT IMPRESSION: 1. No acute intracranial hemorrhage. 2. Scattered regions of low attenuation within the white matter. Non-specific in nature but frequently secondary to chronic small vessel ischemic disease. 3. Prominence of ventricles and sulci which is frequently secondary to age related volume loss. PE: GEN: NAD HEENT: Atraumatic, PERRL LUNGS: CTAB HEART: RRR ABD: NABS, S/ND - some discomfort quiet low, almost to groin bilaterally EXTREMITY: No edema SKIN: No rashes, no jaundice NEURO/PSYCH: A & O 3 A/P: A/P: Dark stools, dizziness, hypotension, intermittent LLQ /suprapubic pain Normocytic anemia, heme neg. GERD - on PPI QOD, reports normal EGD ~3 years ago CRC screen, h/o colon polyps - had colonoscopy ~3 years ago Occasional constipation - controlled Diverticular disease CAD, A Fib, TRUPTI/CKD, hypothyroidism - Eliquis held, per primary -- NPO for EGD this afternoon. IV PPI. Check anemia parameters. Note orders for KUB and RUQ US, await these and consider CT A/P re: question of diverticulitis. Called RN - give 2nd unit of pRBCs (already ordered). SERAFIN PARKER Sep 13, 2018 09:17
--- NOTE | 2018-09-13 10:42 | PDOC2 ---
CARDIAC CONSULT DATE OF CONSULT Date of Consult DATE: 09/13/18 TIME: 10:36 REASON FOR CONSULT Reason for Consult: H/o CAD REFERRING PHYSICIAN Referring Physician: Dr. Grande SOURCE Source: Chart review, Patient HISTORY OF PRESENT ILLNESS HISTORY OF PRESENT ILLNESS This is a 78 yo male, with a history of PAFIB on Eliquis, CAD s/p CABG x2 with most recent in 1999, and PAD s/p [employer]/stenting, who presented secondary to dizziness. Patient has had dark stools for the last couple of weeks. On Monday began experiencing dizziness. Blood pressure was low. [place] okay on Monday. Monday was again dizzy. Was seen by Primary care Monday and reported symptoms of dizziness and dark stools. Eliquis and blood pressure medication was held and routine labs were obtained. Hgb was noted to be in the 7 range. Patient was recommended to go to the ED if blood pressure remained low. Most recent cath over 2 years ago; no intervention performed at that time. PAST MEDICAL HISTORY Cardiovascular: AFIB, CAD, HTN, Hyperlipidemia, Other (PVD) Pulmonary: Other (PATRICIA) CENTRAL NERVOUS SYSTEM: Other (no pertinent hx ) GI: Diverticulosis, GERD Heme/Onc: Anemia NOS Psych: Anxiety, Depression Musculoskeletal: Osteoarthritis Rheumatologic: Gout Infectious disease: No pertinent hx ENT: No pertinent hx Renal/: No pertinent hx Endocrine: Diabetes, Hypothyroidism PAST SURGICAL HISTORY Past Surgical History: CABG FAMILY HISTORY Family History: Coronary Artery Disease, Diabetes, Heart Disease, Hypertension SOCIAL HISTORY Smoke: Quit ALCOHOL: none Drugs: None Lives: with Family CURRENT MEDICATIONS CURRENT MEDICATIONS Current Medications Medications (Trade) Dose Ordered Sig/Jadyn Route PRN Reason Start Time Stop Time Status Last Admin Dose Admin Sodium Chloride 500 ml @ 500 mls/hr 1X ONCE IV 09/12/18 19:30 09/12/18 20:29 DC 09/12/18 20:11 Pantoprazole Sodium (PROTONIX VIAL for IV PUSH) 20 mg DAILYAC IVP 09/13/18 07:30 09/13/18 09:19 DC 09/13/18 08:54 Sodium Chloride 1,000 ml @ 75 mls/hr [id number] IV 09/13/18 07:30 09/13/18 09:04 ALLERGIES ALLERGIES: Coded Allergies: Iodinated Contrast- Oral and IV Dye (Verified Allergy, Intermediate, ) V TACH ROS Review of System 14 point ROS conducted with pertinent positives noted above in HPI. PHYSICAL EXAM General: Alert, Oriented X3, Cooperative, No acute distress HEENT: Atraumatic Lungs: Clear to auscultation, Normal air movement Heart: Regular rate (mainly SR. Having intermittent bursts of PAT), Normal S1, Normal S2 Abdomen: Soft, No tenderness Extremities: No cyanosis, No edema Skin: No significant lesion Neuro: Normal speech, Sensation intact Psych/Mental Status: Mental status NL, Mood NL MUSCULOSKELETAL: Osteoarthritic changes both hands (15 years ago) VITALS VITALS Vital Signs Date Time Temp Pulse Resp B/P (MAP) Pulse Ox O2 Delivery O2 Flow Rate FiO2 09/13/18 10:17 98.3 67 16 152/107 98.3 09/13/18 09:30 98 Room Air LABS Lab: Laboratory Tests Test 09/12/18 19:10 09/12/18 19:35 09/12/18 20:40 09/13/18 03:35 Urine Collection Type Unknown Urine Color Yellow Urine Clarity Clear Urine pH 6.0 Urine Specific [place] 1.015 Urine Protein Negative mg/dL (NEG-TRACE) Urine Glucose (UA) Negative mg/dL (NEG) Urine Ketones (Stick) Negative mg/dL (NEG) Urine Blood Negative (NEG) Urine Nitrite Negative (NEG) Urine Bilirubin Negative (NEG) Urine Urobilinogen Dipstick 0.2 mg/dL (0.2 mg/dL) Urine Leukocyte Esterase Negative (NEG) Urine RBC 0 /HPF (0-2) Urine WBC Occ /HPF (0-4) Urine Transitional Epithelial Cells Few /LPF Urine Bacteria 0 /HPF (0-FEW) Urine Hyaline Casts Many /HPF Urine Mucus Mod /LPF White Blood Count 6.2 x10^3/uL (4.0-11.0) 5.0 x10^3/uL (4.0-11.0) Red Blood Count 2.28 x10^6/uL (4.30-5.70) 2.40 x10^6/uL (4.30-5.70) Hemoglobin 7.0 g/dL (13.0-17.5) 7.2 g/dL (13.0-17.5) Hematocrit 21.0 % (39.0-53.0) 21.8 % (39.0-53.0) Mean Corpuscular Volume 92 fL (79-100) 91 fL (79-100) Mean Corpuscular Hemoglobin 31 pg (25-35) 30 pg (25-35) Mean Corpuscular Hemoglobin Concent 33 g/dL (31-37) 33 g/dL (31-37) Red Cell Distribution Width 15.1 % (11.5-14.5) 15.5 % (11.5-14.5) Platelet Count 201 x10^3/uL (140-400) 171 x10^3/uL (140-400) Neutrophils (%) (Auto) 58 % (31-73) 52 % (31-73) Lymphocytes (%) (Auto) 27 % (24-48) 32 % (24-48) Monocytes (%) (Auto) 12 % (0-9) 12 % (0-9) Eosinophils (%) (Auto) 2 % (0-3) 2 % (0-3) Basophils (%) (Auto) 1 % (0-3) 1 % (0-3) Neutrophils # (Auto) 3.6 x10^3uL (1.8-7.7) 2.6 x10^3uL (1.8-7.7) Lymphocytes # (Auto) 1.7 x10^3/uL (1.0-4.8) 1.6 x10^3/uL (1.0-4.8) Monocytes # (Auto) 0.7 x10^3/uL (0.0-1.1) 0.6 x10^3/uL (0.0-1.1) Eosinophils # (Auto) 0.1 x10^3/uL (0.0-0.7) 0.1 x10^3/uL (0.0-0.7) Basophils # (Auto) 0.0 x10^3/uL (0.0-0.2) 0.1 x10^3/uL (0.0-0.2) Prothrombin Time 13.9 SEC (11.7-14.0) Prothromb Time International Ratio 1.1 (0.8-1.1) Activated Partial Thromboplast Time 43 SEC (24-38) Sodium Level 141 mmol/L (136-145) 143 mmol/L (136-145) Potassium Level 4.4 mmol/L (3.5-5.1) 4.0 mmol/L (3.5-5.1) Chloride Level 104 mmol/L (98-107) 107 mmol/L (98-107) Carbon Dioxide Level 22 mmol/L (21-32) 24 mmol/L (21-32) Anion Gap 15 (6-14) 12 (6-14) Blood Urea Nitrogen 50 mg/dL (8-26) 48 mg/dL (8-26) Creatinine 2.0 mg/dL (0.7-1.3) 1.8 mg/dL (0.7-1.3) Estimated GFR (Cockcroft-Gault) 32.6 36.8 BUN/Creatinine Ratio 25 (6-20) Glucose Level 112 mg/dL (70-99) 153 mg/dL (70-99) Calcium Level 8.7 mg/dL (8.5-10.1) 8.4 mg/dL (8.5-10.1) Total Bilirubin 0.2 mg/dL (0.2-1.0) Aspartate Amino Transf (AST/SGOT) 17 U/L (15-37) Alanine Aminotransferase (ALT/SGPT) 21 U/L (16-63) Alkaline Phosphatase 38 U/L (46-116) Troponin I Quantitative < 0.017 ng/mL (0.000-0.055) BC-Siw-O-Type Natriuretic Peptide 1364 pg/mL (0-449) Total Protein 6.9 g/dL (6.4-8.2) Albumin 3.6 g/dL (3.4-5.0) Albumin/Globulin Ratio 1.1 (1.0-1.7) Lipase 345 U/L (73-393) Stool Occult Blood Negative (NEG) Iron Level 92 ug/dL (65-175) Total Iron Binding Capacity 332 ug/dL (250-450) Iron Saturation 28 % (15-34) Thyroid Stimulating Hormone (TSH) 4.748 uIU/mL (0.358-3.74) Test 09/13/18 07:26 Glucose (Fingerstick) 120 mg/dL (70-99) ECHOCARDIOGRAM ECHOCARDIOGRAM <Conclusion> Technically difficult study. The Left Ventricle is mildly dilated. The left ventricular systolic function is mildly decreased. The Ejection Fraction is estimated at 40%. There is mild global hypokinesis of the left ventricle. There is no significant aortic valvular stenosis. Doppler and Color Flow revealed no significant aortic regurgitation. Doppler and Color Flow revealed mild mitral valve regurgitation. Doppler and Color Flow revealed trace to mild tricuspid regurgitation. DATE: 08/08/18 1502 STRESS TEST STRESS TEST Conclusion 1. Regadenoson cardioisotope stress test showed large mixed perfusion defect involving the inferior, inferolateral mac and extending into the lateral wall consistent with moderate infarction and small to moderate ischemia particularly in the lateral wall. 2. Base to mid inferior wall hypokinesis with ejection fraction calculated at 43 %. 3. Intermediate risk for cardiac events. DATE: 08/11/17 1213 ASSESSMENT/PLAN ASSESSMENT/PLAN 1. Dizziness; secondary to hypotension/anemia 2. Anemia; hgb 7.0 upon arrival. S/p 1 unit PRBCs. EGD planned later today 4. PAFIB; Recent event monitor notable for SR with 1st degree. Intermittent BBB , occasional episodes of junctional rhythm with lower rate 39, and occasional episodes of paroxysmal atrial tachycardia with aberrancy. ? tachy/bettina 5. CAD s/p CABG; initial in and redo in 1999. Also s/p PCI/ multiple stents pre and post CABG in 1999. 6. PAD s/p previous stenting; Follows with Dr. Wilkerson. Opted for medical management due to manageable symptoms initially. Claudications symptoms worse recently and would like to consider revascularization at some point. 7. Chronic systolic HF; clinically compensated 8. ICM; LVEF 40% 9. Hypertension; controlled 10. Hyperlipidemia; statin 11. Diabetes, II 12. TRUPTI 13. Hypothyroidism Recommendations Resume Amiodarone for rhythm maintenance Continue Coreg. Unable to uptitrate or convert to metoprolol due to episodes of bradycardia May hold anticoagulation therapy for now with pending GI workup Obviously high risk without antiplatelet/anticoagulations therapy given extensive h/o CAD, PAD, and PAFIB. ASA for now if okay with GI ANABELL CHEUNG APRN Sep 13, 2018 10:42
[2018-09-13] MEDS ORDERED: fentaNYL PF VIAL 100 MCG/2 ML VIAL IV PRN ×2 (13:45)
[2018-09-13] MEDS ORDERED: MIDAZOLAM HCL/PF 2 MG/2 ML VIAL. IV PRN (13:45)
[2018-09-13] MEDS ORDERED: LIDOCAINE 1% PF 2 ML VIAL. ID PRN (13:45)
[2018-09-13] MEDS: IV RINGERS,LACTATED 1000ML 1,000 ML IV SCH ×2 (13:49→21:45)
[2018-09-13] MEDS ORDERED: PROPOFOL 20 ML IV ONE (14:27)
[2018-09-13] MEDS ORDERED: LIDOCAINE 2% 100 MG/5 ML SYRINGE. ONE (14:28)
--- NOTE | 2018-09-13 15:07 | PDOC4 ---
Operative Note Operative Note EGD Meds propofol per anesthesia Pre-op dx acute blood loss anemia/melena Post-op dx non-erosive gastritis Plan serial cbcs bleeding scan if bleeding resumes eventual colonoscopy and possible o/p capsule endoscopy resume diet PALLAVI PFEIFFER MD Sep 13, 2018 15:07
[2018-09-13] MEDS: CARVEDILOL 3.125 MG TABLET. PO SCH (17:00)
--- NOTE | 2018-09-13 17:14 | RAD ---
Examination: Ultrasound abdomen limited HISTORY: History of lower abdominal pain COMPARISON: None available FINDINGS: The liver length measures 19.2 cm. The common bile duct measures 4.7 mm in transverse dimension. The pancreas is not well-visualized due to bowel gas. Multiple echogenicities identified within the gallbladder likely gallstones. The gallbladder wall thickness measures 3.4 mm. The right kidney measures 10.8 cm in length. The visualized IVC within normal limits of dimension. IMPRESSION: 1. Cholelithiasis with mild thickened appearance of the gallbladder wall. No ultrasonographic evidence of Torres's sign. 2. Examination limited due to patient body habitus. Electronically signed by: Jerardo Chance MD (09/13/2018 5:11 PM) [id number]
[2018-09-13] MEDS: AMIODARONE HCL 200 MG TABLET. PO SCH (20:12)
[2018-09-14] VITALS (7 sets, daily range): BP systolic 101–166; BP diastolic 50–67
[2018-09-14 00:09] LABS: HEMOGLOBIN A1C 5.5 % (4.8-5.6)
[2018-09-14 04:27] LABS: HEMATOCRIT 24.8 % (39.0-53.0); HEMOGLOBIN 8.3 g/dL (13.0-17.5); RED BLOOD COUNT 2.77 x10^6/uL (4.30-5.70); RED CELL DISTRIBUTION WIDTH 15.3 % (11.5-14.5); WHITE BLOOD COUNT 5.2 x10^3/uL (4.0-11.0)
--- NOTE | 2018-09-14 04:35 | PDOC ---
SUBJECTIVE Subjective Pt feeling well. Pain in lower abdomen has not reoccured since yesterday morning. Pt says that he was told old blood was seen on his EGD but no new blood. Labs for this morning have not been drawn yet. Discussed likely discharge today if Hb remains stable or has increased. Will resume some of his home medications, continuing to hold BP meds. Pt initially seen at 0400. Since pt was seen he has had some more bleeding. Lab results have returned. Pt had GI bleeding scan done today as well. Keeping overnight. OBJECTIVE Vital Signs Vital Signs Date Time Temp Pulse Resp B/P (MAP) Pulse Ox O2 Delivery O2 Flow Rate FiO2 09/14/18 03:25 97.9 62 18 141/51 (81) 95 Room Air 97.9 09/13/18 23:25 97.9 60 18 135/44 (74) 98 Room Air 97.9 09/13/18 20:12 60 117/49 09/13/18 19:30 Room Air 09/13/18 19:25 98.7 60 18 117/49 (71) 95 Room Air 98.7 09/13/18 17:00 61 104/48 09/13/18 15:30 98.6 63 20 133/72 96 Room Air 98.6 09/13/18 15:20 98.6 61 20 112/73 96 Room Air 98.6 09/13/18 15:10 98.6 59 20 89/59 95 Nasal Cannula 3 98.6 09/13/18 15:05 98.6 68 20 89/59 94 Room Air 3 98.6 09/13/18 15:00 98.0 62 18 130/56 (80) 98 Room Air 98.0 09/13/18 13:39 Room Air 09/13/18 13:37 98.6 77 18 96 98.6 09/13/18 13:30 98.6 77 18 119/81 98.6 09/13/18 12:48 98.0 59 18 148/59 98.0 09/13/18 12:08 98.4 61 16 147/61 98.4 09/13/18 11:45 98.0 74 18 140/58 (85) 98 Room Air 98.0 09/13/18 10:45 98.1 53 16 132/46 98.1 09/13/18 10:17 98.3 67 16 152/107 98.3 09/13/18 09:30 98.4 64 18 141/64 (89) 98 Room Air 98.4 09/13/18 08:00 Room Air 09/13/18 07:00 98.2 79 18 131/54 (79) 98 Room Air 98.2 I & O Intake and Output 09/14/18 07:00 Intake Total 7 ml Output Total 1000 ml Balance -993 ml Intake Oral 0 ml Blood Product IV Normal Saline Flush 7 ml Output Urine Total 1000 ml PHYSICAL EXAM Physical Exam GEN.: No apparent distress. Alert and oriented. HEENT: Head is normocephalic, atraumatic NECK: Supple. LUNGS: Clear to auscultation. HEART: RRR, S1, S2 present. Peripheral pulses intact ABDOMEN: Distended, nontender. Positive bowel sounds. EXTREMITIES: Without any cyanosis, 1+ pitting edema RLE NEUROLOGIC: Normal speech, normal tone PSYCHIATRIC: Normal affect, normal mood. SKIN: No ulcerations ASSESSMENT/PLAN Assessment/Plan Pt is a 78yo CM admitted for GI Bleed 1)GI Bleed- possibly from diverticulitis. Pt is allergic to iodinated contrast dye; KUB and U/S ordered which only showed cholelithiasis; pt asymptomatic with that. Pt had EGD yesterday which showed old blood but no active bleeding. Bleeding scan did not show any active bleeding. Pt had mild increase of Hb from 7 to 7.2 after receiving 1 unit and then increase to 9 after the 2nd unit. Pt had drop again this morning to 8.3. Pt staying overnight. Repeat labs ordered. Pt taking iron. GI Following 2)Hypotension due to above- normotensive with BP medications being held, including benicar/HCTZ, Carvedilol and HCTZ 3)CAD- pt's Eliquis currently being held. Cardiology following. Pt has been resumed on Amiodarone 200mg qday and currently is getting ASA 4)HLD- pt's Simvastatin and gemfibrozil restarted 5)GERD- pt's Prevacid currently being held, started on Pantoprazole 6)Hypothyroidism- pt's TSH mildly elevated. Can increase dose of levothyroxine on discharge. 7)DM2- HbA1C well controlled and BS currently well controlled without medications. Has SSI available. 8)CHF- diastolic and systolic, with mild fluid overload but no significant exacerbation. Pt has been receiving gentle IVF hydration 9)PAD 10)Acute on CKD- pt's Cr has improved back to baseline from 2 to 1.3 with IVF hydration. COMMENT Lab Laboratory Tests Test 09/13/18 07:26 09/13/18 11:33 09/13/18 16:20 09/13/18 16:51 Glucose (Fingerstick) 120 mg/dL (70-99) 131 mg/dL (70-99) 112 mg/dL (70-99) Hemoglobin 9.0 g/dL (13.0-17.5) Test 09/13/18 23:00 09/14/18 03:55 Glucose (Fingerstick) 107 mg/dL (70-99) White Blood Count 5.2 x10^3/uL (4.0-11.0) Red Blood Count 2.77 x10^6/uL (4.30-5.70) Hemoglobin 8.3 g/dL (13.0-17.5) Hematocrit 24.8 % (39.0-53.0) Mean Corpuscular Volume 89 fL (79-100) Mean Corpuscular Hemoglobin 30 pg (25-35) Mean Corpuscular Hemoglobin Concent 34 g/dL (31-37) Red Cell Distribution Width 15.3 % (11.5-14.5) Platelet Count 200 x10^3/uL (140-400) HU YOUNG MD Sep 14, 2018 04:35
[2018-09-14] MEDS ORDERED: NITROGLYCERIN SUBLINGUAL 0.4 MG BOTTLE OF 25. SL PRN (04:45)
[2018-09-14 04:47] LABS: CALCIUM 8.4 mg/dL (8.5-10.1); CREATININE 1.3 mg/dL (0.7-1.3); GFR 53.5; POTASSIUM 4.2 mmol/L (3.5-5.1)
[2018-09-14 04:56] LABS: CHOLESTEROL/HDL RATIO 4.4
[2018-09-14] MEDS: LEVOTHYROXINE 75 MCG TABLET PO SCH (06:00)
[2018-09-14] MEDS: IV 1/2 NORMAL SALINE 1,000 ML IV SCH ×2 (07:12→22:35)
[2018-09-14] MEDS ORDERED: PANTOPRAZOLE IV PUSH 40 MG VIAL. IVP SCH (07:30)
[2018-09-14] MEDS: INSULIN LISPRO 300 UNITS/3 ML INSULN.PEN. SQ SCH ×3 (08:00→17:00)
[2018-09-14] MEDS: GEMFIBROZIL 600 MG TABLET. PO SCH ×3 (08:44→21:14)
[2018-09-14] MEDS: CARVEDILOL 3.125 MG TABLET. PO SCH ×2 (08:45→17:26)
--- NOTE | 2018-09-14 09:08 | PDOC ---
Subjective: Subjective: Just had a black stool. Tolerating PO. Denies abd pain. No dizziness. Knew about gallstones. Objective: Vital Signs: Vital Signs Date Time Temp Pulse Resp B/P (MAP) Pulse Ox O2 Delivery O2 Flow Rate FiO2 09/14/18 08:45 64 166/67 09/14/18 07:00 98.4 18 95 Room Air 98.4 09/13/18 15:10 3 Labs: Laboratory Tests Test 09/13/18 11:33 09/13/18 16:20 09/13/18 16:51 09/13/18 23:00 Glucose (Fingerstick) 131 mg/dL 112 mg/dL 107 mg/dL Hemoglobin 9.0 g/dL Test 09/14/18 03:55 09/14/18 07:31 White Blood Count 5.2 x10^3/uL Red Blood Count 2.77 x10^6/uL Hemoglobin 8.3 g/dL Hematocrit 24.8 % Mean Corpuscular Volume 89 fL Mean Corpuscular Hemoglobin 30 pg Mean Corpuscular Hemoglobin Concent 34 g/dL Red Cell Distribution Width 15.3 % Platelet Count 200 x10^3/uL Sodium Level 140 mmol/L Potassium Level 4.2 mmol/L Chloride Level 105 mmol/L Carbon Dioxide Level 23 mmol/L Anion Gap 12 Blood Urea Nitrogen 36 mg/dL Creatinine 1.3 mg/dL Estimated GFR (Cockcroft-Gault) 53.5 Glucose Level 139 mg/dL Calcium Level 8.4 mg/dL Triglycerides Level 142 mg/dL Cholesterol Level 136 mg/dL LDL Cholesterol, Calculated 77 mg/dL VLDL Cholesterol, Calculated 28 mg/dL Non-HDL Cholesterol Calculated 105 mg/dL HDL Cholesterol 31 mg/dL Cholesterol/HDL Ratio 4.4 Glucose (Fingerstick) 155 mg/dL Imaging: EGD 09/13 non-erosive gastritis Abd US 09/13 IMPRESSION: 1. Cholelithiasis with mild thickened appearance of the gallbladder wall. No ultrasonographic evidence of Torres's sign. 2. Examination limited due to patient body habitus. PE: GEN: NAD LUNGS: NC HEART: RRR ABD: S/ND/NT NEURO/PSYCH: A & O 3 A/P: Dark stools, anemia -h/o GERD on PPI, EGD yesterday unrevealing -last colonoscopy ~3 years ago, h/o polyps and diverticulosis CAD, PVD, A Fib, CKD -Eliquis and ASA on hold Cholelithiasis -- Reviewed w/ Dr. aJmison - had a dark stool this morning, proceed w/ bleeding scan. Will plan for outpt colonoscopy and possible SBCE pending clinical course. Discussed PO iron w/ pt and - use Miralax if needed. PO PPI. Will review recs for restarting Eliquis and ASA w/ Dr. Jamison. SERAFIN PARKER Sep 14, 2018 09:08
[2018-09-14] MEDS ORDERED: POLYETHYLENE GLYCOL 3350 17 GM PACKET. PO PRN (09:15)
--- NOTE | 2018-09-14 09:35 | NUR ---
Attempted IV start x3 without success, into RFA, LH, & LFA, will notify charge nurse for assistance
[2018-09-14] MEDS ORDERED: HEPARIN for NUC MED 500 UNIT/5 ML DISP.SYRIN. IV ONE (10:15)
[2018-09-14] MEDS: FERROUS SULFATE 325 MG TABLET. PO SCH ×2 (10:30→17:25)
[2018-09-14] MEDS: POLYETHYLENE GLYCOL 3350 17 GM PACKET. PO SCH (10:30)
--- NOTE | 2018-09-14 11:37 | NUR ---
Telemetry rhythm SB with 1st degree AV block per charge nurse-MARC Renee
--- NOTE | 2018-09-14 12:08 | PDOC ---
CARDIO Progress Notes Date and Time Date of Service 09/14/2018 Time of Evaluation 1140 Subjective Subjective: No Chest Pain, No shortness of breath, No Palpitations Vitals Vitals Vital Signs Date Time Temp Pulse Resp B/P (MAP) Pulse Ox O2 Delivery O2 Flow Rate FiO2 09/14/18 11:00 97.7 56 18 137/57 (83) 97 Room Air 97.7 09/13/18 15:10 3 Weight Weight [ ] Input and Output Intake and Output Intake and Output 09/14/18 06:59 Intake Total 357 ml Output Total 1650 ml Balance -1293 ml Intake Oral 350 ml Blood Product IV Normal Saline Flush 7 ml Output Urine Total 1650 ml Laboratory Labs Laboratory Tests Test 09/13/18 16:20 09/13/18 16:51 09/13/18 23:00 09/14/18 03:55 Hemoglobin 9.0 g/dL (13.0-17.5) 8.3 g/dL (13.0-17.5) Glucose (Fingerstick) 112 mg/dL (70-99) 107 mg/dL (70-99) White Blood Count 5.2 x10^3/uL (4.0-11.0) Red Blood Count 2.77 x10^6/uL (4.30-5.70) Hematocrit 24.8 % (39.0-53.0) Mean Corpuscular Volume 89 fL (79-100) Mean Corpuscular Hemoglobin 30 pg (25-35) Mean Corpuscular Hemoglobin Concent 34 g/dL (31-37) Red Cell Distribution Width 15.3 % (11.5-14.5) Platelet Count 200 x10^3/uL (140-400) Sodium Level 140 mmol/L (136-145) Potassium Level 4.2 mmol/L (3.5-5.1) Chloride Level 105 mmol/L (98-107) Carbon Dioxide Level 23 mmol/L (21-32) Anion Gap 12 (6-14) Blood Urea Nitrogen 36 mg/dL (8-26) Creatinine 1.3 mg/dL (0.7-1.3) Estimated GFR (Cockcroft-Gault) 53.5 Glucose Level 139 mg/dL (70-99) Calcium Level 8.4 mg/dL (8.5-10.1) Triglycerides Level 142 mg/dL (0-150) Cholesterol Level 136 mg/dL (0-200) LDL Cholesterol, Calculated 77 mg/dL (0-100) VLDL Cholesterol, Calculated 28 mg/dL (0-40) Non-HDL Cholesterol Calculated 105 mg/dL (0-129) HDL Cholesterol 31 mg/dL (40-60) Cholesterol/HDL Ratio 4.4 Test 09/14/18 07:31 Glucose (Fingerstick) 155 mg/dL (70-99) Physical Exam HEENT: Neck Supple W Full Motion Chest: Symmetric LUNGS: Clear to Auscultation Heart: S1S2, RRR (SR with mean HR in the 60s) Abdomen: Soft N/T Extremities: No Edema, No Calf Tenderness Neurology: alert, oriented, follow commands Assessment Assessment 1. Dizziness; secondary to hypotension/anemia 2. Normocytic anemia; hgb 8.3 post transfusion. Possible GI bleed, none conclusive UGI dubon per EGD. GI following 4. 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 No pauses , no noted RVR overnight. 5. CAD s/p CABG; initial in and redo in 1999. Also s/p PCI/ multiple stents pre and post CABG in 1999. 6. PAD s/p previous stenting: follow with vascular surgery with Dr. Wilkerson. + for claudication symptoms, no wounds. Will defer to vascular 7. Chronic systolic CHF: Compensated 8. ICM; LVEF 40% 9. Hypertension; controlled 10. DM2/HLP 12. TRUPTI: resolved with volume repletion 13. Hypothyroidism Recommendations Monitor rhythm. Continue coreg and Amiodarone for now for rhythm maintenance Await GI workup including bleeding scan. Holding home anticoagulation until GI workup is complete and source of GI bleed is corrected. At least ECASA 81 mg for now when cleared by GI. Secondary prevention measures as tolerated Follow up with Dr. Chacon on October 02 9:45 AM JULIÁN DO APRN Sep 14, 2018 12:08
--- NOTE | 2018-09-14 13:31 | NUR ---
Returned from bleeding scale denies pain or discomfort, spouse at bedside
--- NOTE | 2018-09-14 13:51 | NUR ---
SW following pt for anticipated dc needs. Chart reviewed and DW RN. Pt lives at home with spouse and has no skilled needs.
--- NOTE | 2018-09-14 14:10 | RAD ---
AP view of the abdomen Clinical indications: Abdominal pain FINDINGS: There is mild fecal retention within the colon. No obstructive bowel pattern is evident. There is a possible compression fracture of T10. Vascular calcifications are evident. IMPRESSION: No obstructive bowel pattern. Possible compression fracture of T10. Clinical correlation is needed. Electronically signed by: Juice Goncalves MD (09/14/2018 2:08 PM) [facility]
--- NOTE | 2018-09-14 14:21 | NUR ---
Spoke with BRENT Wilkerson regarding dismissal suggestion keep overnight with possible dismissal tomorrow-still awaiting GI bleeding scan results, also hemogloblin decreased from 9.4 to 8.3 from 09/13 to 09/14
--- NOTE | 2018-09-14 16:19 | RAD ---
Examination: GI BLEED History: melena, anemia for 2 weeks. Last dark tarry stool this AM. Diverticulosis. 31.0mCi Tc99m RBC's Comparison/Correlation: None Findings: 31 mCi technetium 99m was utilized for cannulation blood cell scan examination. Imaging was performed up to 53 minutes. Distribution of radiotracer is unremarkable. There is no abnormal accumulation of radiotracer to suggest active GI bleed. Impression: No GI bleed identified. Electronically signed by: Yaw Thomas MD (09/14/2018 4:16 PM) [facility]
--- NOTE | 2018-09-14 21:00 | NUR ---
patient refused lopid @ this time requested to take it in the morning and at noon time
[2018-09-14] MEDS: ATORVASTATIN CALCIUM 20 MG TABLET PO SCH (21:07)
[2018-09-14] MEDS: AMIODARONE HCL 200 MG TABLET. PO SCH (21:10)
--- NOTE | 2018-09-15 00:08 | NUR ---
DR Ferreira returned 2nd page informed patient running 5 vtach @2255 then @ 2257 running 4 vtach after and right now running accelerated idioventricular rate of 55 asked if patient is symptomatic informed pt sleeping @ this time stated leave him alone no new order
[2018-09-15 03:51] VITALS: BP 151/54
[2018-09-15 04:22] LABS: HEMATOCRIT 23.7 % (39.0-53.0); HEMOGLOBIN 7.9 g/dL (13.0-17.5); RED BLOOD COUNT 2.64 x10^6/uL (4.30-5.70); RED CELL DISTRIBUTION WIDTH 15.6 % (11.5-14.5); WHITE BLOOD COUNT 5.4 x10^3/uL (4.0-11.0)
[2018-09-15] MEDS: LEVOTHYROXINE 75 MCG TABLET PO SCH (05:58)
[2018-09-15 07:00] VITALS: BP 156/56
[2018-09-15] MEDS: INSULIN LISPRO 300 UNITS/3 ML INSULN.PEN. SQ SCH ×3 (07:41→17:20)
[2018-09-15] MEDS: CARVEDILOL 3.125 MG TABLET. PO SCH (08:32)
[2018-09-15] MEDS: PANTOPRAZOLE 40 MG TABLET.DR. PO SCH (08:32)
[2018-09-15] MEDS: GEMFIBROZIL 600 MG TABLET. PO SCH ×2 (08:33→12:24)
[2018-09-15] MEDS: FERROUS SULFATE 325 MG TABLET. PO SCH ×2 (08:33→17:15)
[2018-09-15] MEDS: POLYETHYLENE GLYCOL 3350 17 GM PACKET. PO SCH (08:33)
[2018-09-15 11:00] VITALS: BP 105/54
--- NOTE | 2018-09-15 12:08 | PDOC ---
PROGRESS NOTES Subjective He is still having black stools, short run of V-tach overnight but asymptomatic. No chest pain, no SOA, no dizziness, up and about, tolerating diet Objective Afebrile General: NAD, A&O, pleasant Heart: rate controlled Lungs: CTA Abd: soft, non distended, no tenderness, bowel sounds present Ext: no CC/E Hgb: 7.9 - dilutional? Retic 4.0 Vital Signs Vital Signs Date Time Temp Pulse Resp B/P (MAP) Pulse Ox O2 Delivery O2 Flow Rate FiO2 09/15/18 08:32 59 156/56 09/15/18 08:00 Room Air 09/15/18 07:00 98.6 16 97 98.6 09/13/18 15:10 3 I & O Intake and Output 09/15/18 07:00 Intake Total 1150 ml Balance 1150 ml Intake Oral 1150 ml # Voids 9 # Bowel Movements 1 Assessment and Plan upper GI bleed - no definite source - Hgb dropping slowly, may be dilutional from IV fluids, stool still black, elevated retic count, on iron, hx of 2 units pRBC. Will stop IVF CAD - asymptomatic short run of Vtach - off anticoagulants due to GI bleed CKD - back to baseline multiple other chronic conditions that are stable Zakiya HERNANDEZ MD Sep 15, 2018 12:08
--- NOTE | 2018-09-15 13:27 | PDOC ---
CARDIOLOGY PROGRESS NOTE SUBJECTIVE: No acute events overnight. Patient has had some episodes of nonsustained VT versus SVT with aberrancy. He denies any angina. Continues to have anemia issues. Awaiting further workup to GI. Anticoagulation has been on hold. OBJECTIVE: Vital SIgns: Vital Signs Date Time Temp Pulse Resp B/P (MAP) Pulse Ox O2 Delivery O2 Flow Rate FiO2 09/15/18 11:00 98.2 57 16 105/54 (71) 93 Room Air 98.2 I & O Intake and Output 09/15/18 07:00 Intake Total 1150 ml Balance 1150 ml Intake Oral 1150 ml # Voids 9 # Bowel Movements 1 Objective: On exam he is alert and oriented. Normal heart tones. Lungs are clear No significant edema noted. CURRENT MEDICATIONS: Cardiac medications reviewed. Notable for amiodarone, carvedilol, gemfibrozil and atorvastatin DIAGNOSTIC TESTING: Event monitor from last month reviewed and probable 1% PVC and PAC burden. No sustained arrhythmias noted except for one episode of 2 minutes of wide complex rhythm which was likely SVT with aberrancy although cannot rule out underlying ventricular tachycardia. Telemetry overnight reveals mostly SVT with aberrancy with few nonsustained VT episodes lasting 4-5 beats. ASSESSMENT: 1. Known ischemic cardio myopathy with severe anemia in the setting of a history of anticoagulation for atrial fibrillation 2. Arrhythmia most consistent with SVT with aberrancy versus ventricular tachycardia. PLAN: 1. The patient has not had any alarm findings at this time related to his heart. It appears that overall he is chest pain-free. We will stop his carvedilol and switch him to metoprolol and continue his amiodarone. He may benefit from a electrophysiology visit on an outpatient basis to consider possible EP study although this would be prohibitive at this time given his severe anemia. 2. He may be considered for ICD implantation on outpatient basis depending on his arrhythmia burden which most recently was quite low, but given his ejection fraction was 40% recently he would not qualify for ICD on the basis of primary prevention only. 3. K at goal, Check mag levels PRIYA CHAPARRO MD Sep 15, 2018 13:27
[2018-09-15] MEDS: METOPROLOL SUCC 24HR ER 25 MG TAB.ER.24H. PO SCH (14:39)
[2018-09-15 15:00] VITALS: BP 151/42
[2018-09-15 19:34] VITALS: BP 137/34
[2018-09-15] MEDS: ATORVASTATIN CALCIUM 20 MG TABLET PO SCH (21:10)
[2018-09-15] MEDS: AMIODARONE HCL 200 MG TABLET. PO SCH (21:10)
[2018-09-15 23:29] VITALS: BP 133/53
[2018-09-16 03:25] VITALS: BP 133/45
[2018-09-16] MEDS: LEVOTHYROXINE 75 MCG TABLET PO SCH (06:28)
[2018-09-16 07:00] VITALS: BP 151/56
[2018-09-16 07:20] LABS: BASO # 0.1 x10^3/uL (0.0-0.2); BASO % 1 % (0-3); EOS # 0.2 x10^3/uL (0.0-0.7); EOS % 4 % (0-3); HEMATOCRIT 23.8 % (39.0-53.0); HEMOGLOBIN 7.9 g/dL (13.0-17.5); LYMPH # 1.5 x10^3/uL (1.0-4.8); LYMPH % 27 % (24-48); MEAN CORPUSCULAR HEMOGLOBIN 30 pg (25-35); MEAN CORPUSCULAR HGB CONC 33 g/dL (31-37); MEAN CORPUSCULAR VOLUME 90 fL (79-100); MONO # 0.6 x10^3/uL (0.0-1.1); MONO % 11 % (0-9); NEUT # 3.1 x10^3uL (1.8-7.7); NEUT % 57 % (31-73); PLATELET COUNT 220 x10^3/uL (140-400); RED BLOOD COUNT 2.64 x10^6/uL (4.30-5.70); RED CELL DISTRIBUTION WIDTH 15.3 % (11.5-14.5); WHITE BLOOD COUNT 5.5 x10^3/uL (4.0-11.0)
[2018-09-16 07:54] LABS: ALBUMIN 3.3 g/dL (3.4-5.0); CALCIUM 8.5 mg/dL (8.5-10.1); CREATININE 1.2 mg/dL (0.7-1.3); GFR 58.7; POTASSIUM 4.2 mmol/L (3.5-5.1); TOTAL BILIRUBIN 0.2 mg/dL (0.2-1.0); TOTAL PROTEIN 6.5 g/dL (6.4-8.2)
[2018-09-16] MEDS: INSULIN LISPRO 300 UNITS/3 ML INSULN.PEN. SQ SCH ×2 (08:00→12:00)
[2018-09-16] MEDS: POLYETHYLENE GLYCOL 3350 17 GM PACKET. PO SCH (08:00)
[2018-09-16] MEDS: GEMFIBROZIL 600 MG TABLET. PO SCH ×2 (08:01→13:01)
[2018-09-16] MEDS: PANTOPRAZOLE 40 MG TABLET.DR. PO SCH (08:01)
[2018-09-16] MEDS: FERROUS SULFATE 325 MG TABLET. PO SCH (08:01)
[2018-09-16] MEDS: METOPROLOL SUCC 24HR ER 25 MG TAB.ER.24H. PO SCH (08:05)
[2018-09-16 11:00] VITALS: BP 100/41
[2018-09-16] MEDS ORDERED: METO-239 PO (14:04)
[2018-09-16] MEDS ORDERED: FERR325T72 PO (14:04)
--- NOTE | 2018-09-16 14:14 | PDOC3 ---
Discharge Summary [facility] Date of Admission: Sep 12, 2018 Discharge Date: Sep 16, 2018 Admitting Diagnosis GI bleed Final Diagnosis Upper GI bleed CONSULTS Antonieta Jamison Procedures transfusion of 2 units pRBC Brief Hospital Course Mr. Mayfield is a 78 old who presented with lightheadedness and near syncope to the office and found to be anemic but before OP workup could be completed he worsened and was seen in ther ER and admitted and transfused 2 units of pRBC. He stabilized, was taken of blood thinners for his chronic heart conditions. EGD revealed gastritis, bleeding scan was negative. His Hgb is stable at 7.9 and his carvedilol was changed to metoprolol succinate 25 mg daily, other home meds are resumed at discharge. Patient History: Family history: Cardiomyopathy (situation) 32 MOTHER Family history: Cardiovascular disease (situation) 33 FATHER Family history: Depression (situation) 32 MOTHER Family history: Diabetes mellitus (situation) 33 FATHER Family history: Hypertension (situation) 33 FATHER Disposition home CONDITION AT DISCHARGE: Improved, Stable Scheduled Amiodarone Hcl (Amiodarone Hcl), 200 MG PO HS, (Reported) Carvedilol (Carvedilol ), 3.125 MG PO BIDWMEALS, (Reported) Cholecalciferol (Vitamin D3) (D3-2000), 2,000 UNIT PO DAILY, (Reported) Docusate Sodium (Stool Softener), 50 MG PO DAILY, (Reported) Docusate Sodium (Colace), 100 MG PO BID Gemfibrozil (Gemfibrozil), 600 MG PO BID, (Reported) Glipizide (Glipizide Er), 5 MG PO DAILY, (Reported) Lansoprazole (Prevacid), 15 MG PO 4X/WEEK, (Reported) Levothyroxine Sodium (Levothyroxine Sodium), 1 TAB PO DAILY, (Reported) Metformin Hcl (Metformin Hcl), 500 MG PO DAILYBFRSUP, (Reported) Multivitamin (Multi-Vitamin Daily), 1 EACH PO DAILY, (Reported) Simvastatin (Simvastatin), 40 MG PO HS, (Reported) Zolpidem Tartrate (Zolpidem Tartrate), 1 TAB PO QHS, (Reported) Scheduled PRN Nitroglycerin (Nitrostat), 0.4 MG SL PRN Q5MIN PRN for CHEST PAIN, (Reported) Psyllium Husk (Natural Fiber), Unknown Dose PO TID PRN for CONSTIPATION, ( Reported) [Hydrocodone/Acetaminophen], 1 TAB PO PRN Q6HRS PRN for PAIN [Hydrocodone/Acetaminophen], 2 TAB PO PRN Q6HRS PRN for PAIN Miscellaneous Medications Acetaminophen (Tylenol Extra Strength), 500 MG PO, (Reported) Discontinued Medications Apixaban (Eliquis), 5 MG PO, (Reported) Aspirin (Aspirin), 81 MG PO, (Reported) Hydralazine Hcl (Hydralazine Hcl), 1 TAB PO TID, (Reported) Levothyroxine Sodium (Levothyroxine Sodium), 50 MCG PO DAILYAC, (Reported) Minoxidil (Minoxidil), 5 MG PO BID, (Reported) [place]-3 Fatty Acids/Fish Oil (Fish Oil 1,000 Mg Capsule), 1 EACH PO DAILY, ( Reported) Valsartan (Diovan), 160 MG PO DAILY, (Reported) Follow Up 09/20/18 Zakiya HERNANDEZ MD Sep 16, 2018 14:14
--- NOTE | 2018-09-16 15:26 | NUR ---
Pt was given all discharge instructions, follow up info, new prescriptions and teaching. Pt and family at bedside. New meds called into his preferred pharmacy. Pt will follow up with Dr. Mckeon next week for medication review, and anemia. All belongings left with pt at time of discharge. Pt left at 1515, escorted via wheelchair by hospital SPACE CONTR[employer] AGENT. Pt is stable, alertx4. Iv removed. tele removed.
[2018-10-09] MEDS ORDERED: OMEG1CAP6 PO (15:16)
[2018-10-11] MEDS ORDERED: POLY17PO29 PO (11:48)
== END 2018-09-16 15:15 | disposition home or self-care (01) | DRG 377 ==
LOC: ER 18:52 → 6 SOUTH 21:20
PROVIDERS: ADMIT Family Medicine; ATTEND Family Medicine
PROC: 0DJ08ZZ Inspection of Upper Intestinal Tract, Via Natural or Artificial Opening Endoscopic (ICD-10-PCS; principal; 2018-09-12)
PROC: 30233N1 Transfusion of Nonautologous Red Blood Cells into Peripheral Vein, Percutaneous Approach (ICD-10-PCS; 2018-09-12)
DX: K29.01 Acute gastritis with bleeding (principal); N17.0 Acute kidney failure with tubular necrosis; D62 Acute posthemorrhagic anemia; I13.0 Hypertensive heart and chronic kidney disease with heart failure and stage 1 through stage 4 chronic kidney disease, or unspecified chronic kidney disease; I47.1 Supraventricular tachycardia; I47.2 Ventricular tachycardia; I50.42 Chronic combined systolic (congestive) and diastolic (congestive) heart failure; K80.20 Calculus of gallbladder without cholecystitis without obstruction; E03.9 Hypothyroidism, unspecified; E11.22 Type 2 diabetes mellitus with diabetic chronic kidney disease; E11.42 Type 2 diabetes mellitus with diabetic polyneuropathy; E11.51 Type 2 diabetes mellitus with diabetic peripheral angiopathy without gangrene; F32.9 Major depressive disorder, single episode, unspecified; E78.5 Hyperlipidemia, unspecified; F41.9 Anxiety disorder, unspecified; I95.9 Hypotension, unspecified; G47.33 Obstructive sleep apnea (adult) (pediatric); I25.10 Atherosclerotic heart disease of native coronary artery without angina pectoris; I25.5 Ischemic cardiomyopathy; I48.0 Paroxysmal atrial fibrillation; K21.9 Gastro-esophageal reflux disease without esophagitis; K29.70 Gastritis, unspecified, without bleeding; M10.9 Gout, unspecified; M19.90 Unspecified osteoarthritis, unspecified site; K59.00 Constipation, unspecified; K63.5 Polyp of colon; Z79.01 Long term (current) use of anticoagulants; Z81.8 Family history of other mental and behavioral disorders; Z82.49 Family history of ischemic heart disease and other diseases of the circulatory system; Z95.1 Presence of aortocoronary bypass graft; Z95.5 Presence of coronary angioplasty implant and graft; Z95.820 Peripheral vascular angioplasty status with implants and grafts; Z83.3 Family history of diabetes mellitus; N18.3 Chronic kidney disease, stage 3 (moderate)
CPT/HCPCS: 36415; 36430; 43235; 70450; 71045; 74018; 76705; 78278; 80048; 80053; 80061; 81001; 82274; 82607; 82962; 83036; 83540; 83550; 83690; 83880; 84443; 84484; 85018; 85025; 85027; 85045; 85610; 85730; 86850; 86900; 86901; 86920; 93005; 96360; 96374; A9560; C9113; J1815; J2704; J7040; J7120; P9016; 99285-25

== ENCOUNTER → 2018-09-21 | Outpatient (CLI) | payer MEDICARE, OTHER ==
[~2018-09-21] MED LIST changes: +FERR325T72 PO; +LEVO75TA5 PO; +METO-239 PO; +POLY17PO29 PO; +[UNRECOGNIZED DRUG - CODE] PO
[2018-09-21 12:09] LABS: HEMATOCRIT 21.6 % (39.0-53.0)
[2018-09-21 12:30] VITALS: BP 131/79
[2018-09-21 13:23] VITALS: BP 111/53
[2018-09-21 14:20] VITALS: BP 141/78
[2018-09-21 14:49] VITALS: BP 129/58
== END | disposition home or self-care (01) ==
LOC: OPS 11:24
PROVIDERS: ATTEND Family Medicine
DX: K92.2 Gastrointestinal hemorrhage, unspecified (principal)
CPT/HCPCS: 36415; 36430; 85014; 85018; 86850; 86900; 86901; 86920; P9016

== ENCOUNTER → 2018-10-01 | Outpatient (CLI) | payer MEDICARE, OTHER ==
[2018-10-01] VITALS (7 sets, daily range): BP systolic 103–125; BP diastolic 50–58
[2018-10-01 08:43] LABS: HEMOGLOBIN 6.3 g/dL (13.0-17.5)
[2018-10-01 08:44] LABS: HEMATOCRIT 20.1 % (39.0-53.0)
== END | disposition home or self-care (01) ==
LOC: OPS 08:00
PROVIDERS: ATTEND Family Medicine
DX: K92.2 Gastrointestinal hemorrhage, unspecified (principal)
CPT/HCPCS: 36415; 36430; 85014; 85018; 86850; 86900; 86901; 86920; P9016

== ENCOUNTER → 2018-10-09 | Outpatient (CLI) | payer MEDICARE, OTHER ==
[~2018-10-09] VITALS: Ht 170.2 cm; Wt 106.1 kg
[2018-10-09] VITALS (7 sets, daily range): BP systolic 130–154; BP diastolic 53–70
[~2018-10-09] MED LIST changes: +HYDR-3164 PO
[2018-10-09 11:35] LABS: HEMATOCRIT 22.6 % (39.0-53.0)
== END | disposition home or self-care (01) ==
LOC: OPS 11:01
PROVIDERS: ATTEND Family Medicine
DX: D50.0 Iron deficiency anemia secondary to blood loss (chronic) (principal); I25.10 Atherosclerotic heart disease of native coronary artery without angina pectoris; I10 Essential (primary) hypertension; E03.9 Hypothyroidism, unspecified; E78.00 Pure hypercholesterolemia, unspecified; E11.40 Type 2 diabetes mellitus with diabetic neuropathy, unspecified; I48.91 Unspecified atrial fibrillation; Z95.5 Presence of coronary angioplasty implant and graft
CPT/HCPCS: 36415; 36430; 85014; 85018; 86850; 86900; 86901; 86920; P9016

== ENCOUNTER → 2018-10-11 | Day surgery (SDC) | payer MEDICARE, OTHER ==
[~2018-10-11] MED LIST changes: -HYDR-3164 PO; +IV RINGERS,LACTATED 1000ML 1,000 ML IV ONE; +PROPOFOL 20 ML IV ONE
[2018-10-11 13:38] VITALS: BP 138/65
== END | disposition home or self-care (01) ==
LOC: ENDOS 11:17
PROVIDERS: ATTEND Internal Medicine Gastroenterology
DX: K57.30 Diverticulosis of large intestine without perforation or abscess without bleeding (principal); K64.0 First degree hemorrhoids; K21.9 Gastro-esophageal reflux disease without esophagitis; I25.10 Atherosclerotic heart disease of native coronary artery without angina pectoris; Z95.5 Presence of coronary angioplasty implant and graft; I48.91 Unspecified atrial fibrillation; I25.2 Old myocardial infarction; E03.9 Hypothyroidism, unspecified; G47.33 Obstructive sleep apnea (adult) (pediatric); I12.9 Hypertensive chronic kidney disease with stage 1 through stage 4 chronic kidney disease, or unspecified chronic kidney disease; E11.22 Type 2 diabetes mellitus with diabetic chronic kidney disease; N18.9 Chronic kidney disease, unspecified; E11.42 Type 2 diabetes mellitus with diabetic polyneuropathy; F41.9 Anxiety disorder, unspecified; F32.9 Major depressive disorder, single episode, unspecified; Z86.010 Personal history of colon polyps; Z98.890 Other specified postprocedural states; Z87.891 Personal history of nicotine dependence; Z72.89 Other problems related to lifestyle; Z91.041 Radiographic dye allergy status; Z79.899 Other long term (current) drug therapy; Z98.49 Cataract extraction status, unspecified eye; Z96.1 Presence of intraocular lens; Z79.84 Long term (current) use of oral hypoglycemic drugs
CPT/HCPCS: 45378; J2704

== ENCOUNTER → 2018-10-16 | Outpatient (CLI) | payer MEDICARE, OTHER ==
[2018-10-11 13:38] VITALS: BP 138/65
[~2018-10-16] MED LIST changes: +BARIUM SULFATE 60% 355 ML SUSP PO ONE; -IV RINGERS,LACTATED 1000ML 1,000 ML IV ONE; -PROPOFOL 20 ML IV ONE
--- NOTE | 2018-10-16 16:10 | RAD ---
Examination: SMALL BOWEL SERIES History: Melena Comparison/Correlation: None Findings: Plaster Pattern Caster view demonstrates moderate quantity of stool in the colon. Significant calcification of the abdominal aorta and iliac arteries noted. Oral contrast was administered. Small bowel series exam was performed. Fluoroscopy was utilized for 0.7 minutes. 8 fluoroscopic spot images were obtained. On the initial image, there appears to be a hiatal hernia containing the distal gastric body region. The distal gastric body is superior in location epigastric upper abdominal midline Contrast is noted at the ascending colon at 40 minutes. No suspicious filling defects involving small bowel. No strictures noted. Impression: Hiatal hernia which contains the distal gastric body. No bowel obstruction. No suspicious filling defect or stricture involving the small bowel. Electronically signed by: Yaw Thomas MD (10/16/2018 4:07 PM) [facility]
== END | disposition home or self-care (01) ==
LOC: RAD 08:39
PROVIDERS: ATTEND Internal Medicine Gastroenterology
DX: K44.9 Diaphragmatic hernia without obstruction or gangrene (principal); I70.0 Atherosclerosis of aorta
CPT/HCPCS: 74250

== ENCOUNTER → 2018-10-26 | Outpatient (CLI) | payer MEDICARE, OTHER ==
[2018-10-11 13:38] VITALS: BP 138/65
[~2018-10-26] MED LIST changes: -BARIUM SULFATE 60% 355 ML SUSP PO ONE
[2018-10-26 11:04] LABS: BASO # 0.1 x10^3/uL (0.0-0.2); BASO % 1 % (0-3); EOS # 0.2 x10^3/uL (0.0-0.7); EOS % 2 % (0-3); HEMATOCRIT 34.4 % (39.0-53.0); LYMPH # 1.6 x10^3/uL (1.0-4.8); LYMPH % 26 % (24-48); MEAN CORPUSCULAR HEMOGLOBIN 30 pg (25-35); MEAN CORPUSCULAR HGB CONC 32 g/dL (31-37); MEAN CORPUSCULAR VOLUME 93 fL (79-100); MONO # 0.7 x10^3/uL (0.0-1.1); MONO % 11 % (0-9); NEUT # 3.8 x10^3uL (1.8-7.7); NEUT % 60 % (31-73); PLATELET COUNT 237 x10^3/uL (140-400); RED BLOOD COUNT 3.69 x10^6/uL (4.30-5.70); RED CELL DISTRIBUTION WIDTH 17.7 % (11.5-14.5); WHITE BLOOD COUNT 6.4 x10^3/uL (4.0-11.0)
== END | disposition home or self-care (01) ==
LOC: LAB 10:32
PROVIDERS: ATTEND Family Medicine
DX: D50.0 Iron deficiency anemia secondary to blood loss (chronic) (principal)
CPT/HCPCS: 36415; 85025

== ENCOUNTER 2018-12-01 11:01 | Emergency (ER) | payer MEDICARE, OTHER ==
[~2018-12-01] VITALS: Ht 170.2 cm; Wt 99.8 kg
[2018-12-01] MEDS ORDERED: LIDOCAINE (700MG/PATCH) PATCH. TD STA (11:27)
[2018-12-01 12:06] VITALS: BP 131/72
--- NOTE | 2018-12-01 12:09 | RAD ---
EXAM: CHEST 2 VIEWS. HISTORY: Chest trauma. COMPARISON: 09/12/2018. FINDINGS: Frontal and lateral views of the chest are obtained. There are changes of coronary artery bypass grafting. There is a new airspace opacity in the right upper lobe. Additional opacities project along the right hilum. There is no pneumothorax or pleural effusion. The heart is mildly enlarged. There are no displaced rib fractures by radiographs. Mid thoracic compression deformities are not acute in comparison with the study of 11/10/2015. Bone aorta IMPRESSION: 1. New right upper lobe and perihilar airspace opacities are consistent with pneumonia, or parenchymal contusions in the setting of trauma. 2. Mild cardiomegaly. Electronically signed by: Mari Solis MD (12/01/2018 12:07 PM) [facility]
[2018-12-01] MEDS ORDERED: HYDR-3164 PO (12:19)
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
[2018-12-01] MEDS ORDERED: ACETAMINOPHEN 500 MG TABLET PO ONE (12:30)
== END 2018-12-01 12:30 | disposition home or self-care (01) ==
LOC: ER 11:01
DX: S20.211A Contusion of right front wall of thorax, initial encounter (principal); I48.91 Unspecified atrial fibrillation; E78.00 Pure hypercholesterolemia, unspecified; I10 Essential (primary) hypertension; E03.9 Hypothyroidism, unspecified; I25.10 Atherosclerotic heart disease of native coronary artery without angina pectoris; E11.40 Type 2 diabetes mellitus with diabetic neuropathy, unspecified; Z95.5 Presence of coronary angioplasty implant and graft; Z91.041 Radiographic dye allergy status; W01.0XXA Fall on same level from slipping, tripping and stumbling without subsequent striking against object, initial encounter; Y93.89 Activity, other specified; Y92.89 Other specified places as the place of occurrence of the external cause; Y99.8 Other external cause status
CPT/HCPCS: 71046; 99284

== ENCOUNTER → 2018-12-13 | Outpatient (CLI) | payer MEDICARE ==
[2018-12-01 12:06] VITALS: BP 131/72
[~2018-12-13] MED LIST changes: +HYDR-3164 PO
--- NOTE | 2018-12-13 17:04 | KCIC ---
CHEST PA LATERAL History: Lung contusion. Fell and hit chest in November.. Comparison: December 01, 2018. The cardiomediastinal silhouette remains mildly enlarged. Abnormal opacity is again seen in the right upper lobe and in right parahilar region. These appear slightly improved since the prior study but for the most part persist. No evidence of pneumothorax. No new infiltrate is seen. No large pleural effusion. No evidence of displaced fracture. IMPRESSION: Persistent opacities in the right upper lobe and parahilar region, with slight interval improvement. Recommend continued short-term radiographic follow-up. Electronically signed by: Perfecto Bolaños MD (12/13/2018 5:01 PM) [id number]
== END | disposition home or self-care (01) ==
LOC: KCIC 10:07
PROVIDERS: ATTEND Family Medicine
DX: S27.329D Contusion of lung, unspecified, subsequent encounter (principal); I51.7 Cardiomegaly; X58.XXXD Exposure to other specified factors, subsequent encounter
CPT/HCPCS: 71046

== ENCOUNTER 2018-12-23 17:04 | Inpatient (IN) | payer MEDICARE ==
[~2018-12-23] VITALS: Ht 172.7 cm; Wt 100.9 kg
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
[2018-12-23 17:39] LABS: BASO % 1 % (0-3); EOS # 0.1 x10^3/uL (0.0-0.7); EOS % 1 % (0-3); HEMATOCRIT 36.4 % (39.0-53.0); HEMOGLOBIN 12.1 g/dL (13.0-17.5); LYMPH # 1.5 x10^3/uL (1.0-4.8); LYMPH % 27 % (24-48); MEAN CORPUSCULAR HEMOGLOBIN 30 pg (25-35); MEAN CORPUSCULAR HGB CONC 33 g/dL (31-37); MEAN CORPUSCULAR VOLUME 89 fL (79-100); MONO # 0.6 x10^3/uL (0.0-1.1); MONO % 11 % (0-9); NEUT # 3.3 x10^3/uL (1.8-7.7); NEUT % 59 % (31-73); PLATELET COUNT 165 x10^3/uL (140-400); RED BLOOD COUNT 4.08 x10^6/uL (4.30-5.70); RED CELL DISTRIBUTION WIDTH 15.9 % (11.5-14.5); WHITE BLOOD COUNT 5.6 x10^3/uL (4.0-11.0)
[2018-12-23 17:49] LABS: CALCIUM 9.3 mg/dL (8.5-10.1); CREATININE 1.3 mg/dL (0.7-1.3); GFR 53.5; POTASSIUM 4.7 mmol/L (3.5-5.1); PROTHROMBIN TIME PATIENT 16.1 SEC (11.7-14.0)
[2018-12-23 17:55] LABS: ALBUMIN 3.6 g/dL (3.4-5.0); ALBUMIN/GLOBULIN RATIO 0.9 (1.0-1.7); MAGNESIUM 1.6 mg/dL (1.8-2.4); TOTAL BILIRUBIN 0.5 mg/dL (0.2-1.0); TOTAL PROTEIN 7.5 g/dL (6.4-8.2)
[2018-12-23 17:56] LABS: D-DIMER 0.98 ug/mlFEU (0.00-0.50)
[2018-12-23] MEDS ORDERED: IPRATRPIUM/ALBUTEROL 0.5/2.5MG 3 ML NEBU. NEB ONE (18:00)
[2018-12-23] MEDS ORDERED: methylPREDNISolone SOD SUCC PF 125 MG/2 ML VIAL. IV ONE ×2 (18:00→19:00)
[2018-12-23 18:03] LABS: CREATINE KINASE 60 U/L (39-308)
--- NOTE | 2018-12-23 18:04 | EKG ---
[facility] [address] [place] [address] Test Date: 2018-12-23 Test Time: 17:14:06 Pat Name: LELO MENDOZA Department: Room: Gender: M [employer]: : 1940 Requested By: ANGI NICOLE Order Number: [id number] Reading MD: Measurements Intervals [place] Rate: 93 P: IN: QRS: -5 QRSD: 164 T: 180 QT: 394 QTc: 493 Interpretive Statements IRREGULAR RHYTHM, NO P-WAVE FOUND LEFTWARD AXIS LOW LIMB LEAD VOLTAGE NON SPECIFIC INTRAVENTRICULAR BLOCK QRS(T) CONTOUR ABNORMALITY CONSISTENT WITH ANTEROSEPTAL INFARCT PROBABLY OLD CONSISTENT WITH INFERIOR INFARCT AGE UNDETERMINED ABNORMAL ECG RI6.01 Unconfirmed report No previous ECG available for comparison
--- NOTE | 2018-12-23 18:28 | RAD ---
CT abdomen and pelvis without contrast 12/23/2018. Reason for exam: Distention. Helical noncontrast images were performed. Exposure: One or more of the following individualized dose reduction techniques were utilized for this examination: 1. Automated exposure control 2. Adjustment of the mA and/or kV according to patient size 3. Use of iterative reconstruction technique. FINDINGS: There are small bilateral pleural effusions. There is focal opacity in the right lower lobe measuring about 1.3 cm. This is probably a small area of infiltrate or edema. There is also some interlobular septal thickening suggesting mild interstitial edema. The lung bases otherwise are clear. The liver and spleen are homogeneous in density and normal in configuration. There are multiple gallstones in the gallbladder. There may be mild gallbladder wall thickening and surrounding edema. The kidneys show no apparent mass or obstruction. The adrenal glands are not enlarged. The pancreas appears normal. No retroperitoneal or mesenteric adenopathy is seen. There is no apparent abdominal mass or inflammatory process. Images through the pelvis show no abnormality of the distal ureters or bladder. No pelvic or inguinal adenopathy is seen. There is no apparent pelvic mass or inflammatory process. There is some diverticulosis of the sigmoid colon without apparent diverticulitis. IMPRESSION: Cholelithiasis and possible gallbladder wall thickening and surrounding edema. Findings could indicate cholecystitis. No other acute abnormality is seen. Electronically signed by: Hussein Yusuf Jr., MD (12/23/2018 6:25 PM) [facility]
[2018-12-23] MEDS ORDERED: DOXYCYCLINE HYCLATE 100 MG in IV DEXTROSE 5% 100ML 100 ML IV ONE (19:00)
[2018-12-23] MEDS ORDERED: CONTRAST GIVEN. MC PRN (19:00)
[2018-12-23] MEDS ORDERED: FUROSEMIDE 40 MG TABLET. PO ONE (19:00)
[2018-12-23] MEDS ORDERED: cefTRIAXone IV Push 1 GM VIAL. IVP ONE (19:00)
[2018-12-23] MEDS ORDERED: diphenhydrAMINE 50 MG/ML VIAL IVP ONE (19:00)
[2018-12-23] MEDS ORDERED: IOHEXOL 350 MG/ML 100 ML VIAL. IV ONE (19:30)
[2018-12-23 20:27] LABS: BILIRUBIN,URINE NEGATIVE (NEG); CLARITY,URINE CLEAR; COLOR,URINE YELLOW; NITRITE,URINE NEGATIVE (NEG); PROTEIN,URINE 30 mg/dL (NEG-TRACE); UROBILINOGEN,URINE 0.2 mg/dL (0.2 mg/dL)
[2018-12-23 20:38] LABS: BACTERIA,URINE 0 /HPF (0-FEW); RBC,URINE 0 /HPF (0-2); WBC,URINE OCC /HPF (0-4)
--- NOTE | 2018-12-23 20:38 | RAD ---
CTA chest with and without contrast 12/23/2018. Reason for exam: Shortness of breath. Elevated d-dimer. Helical thin section images were made through the chest using an infusion of 75 mL Omnipaque 350. MIP reconstructions were performed. Exposure: One or more of the following individualized dose reduction techniques were utilized for this examination: 1. Automated exposure control 2. Adjustment of the mA and/or kV according to patient size 3. Use of iterative reconstruction technique. FINDINGS: There are small bilateral pleural effusions. There is some groundglass density in the lower lungs possibly indicating mild edema. Some scarring is seen in the right upper lobe. There is atelectasis posteriorly in both lower lobes. There is some mild interlobular septal thickening consistent with interstitial edema. No other pulmonary parenchymal abnormality is seen. The central airways show no obstruction. No enlarged lymph nodes are seen. Opacification of the thoracic aorta is not adequate for evaluation. The aorta does not appear dilated. Evaluation of the pulmonary arterial tree shows no abnormal filling defect extending to the subsegmental branch level. Images through the upper abdomen show multiple gallstones in the gallbladder. There is reflux of contrast into the IVC and hepatic veins. IMPRESSION: No evidence of pulmonary embolism. There are findings that may indicate CHF. Cholelithiasis. Electronically signed by: Hussein Yusuf Jr., MD (12/23/2018 8:35 PM) [facility]
[2018-12-23] MEDS: IV NORMAL SALINE 1000ML BAG 1,000 ML IV SCH (21:30)
--- NOTE | 2018-12-23 21:36 | RAD ---
Ultrasound abdomen 12/23/2018. Reason for exam: CT suggested gallstones and possible cholecystitis. Correlation is made with CT done earlier in the day. FINDINGS: Bowel gas limits visualization in some areas. The liver shows no focal parenchymal abnormality. The liver may be mildly enlarged, measuring about 20.6 cm craniocaudally. The common bile duct is borderline dilated at 8 mm. There is no obvious intrahepatic ductal dilatation. The gallbladder contains multiple shadowing stones. There is mild gallbladder wall thickening up to about 6 mm. No pericholecystic fluid is seen. Right kidney shows no mass or obstruction. It measures 11.8 cm in length. The pancreas and abdominal aorta appear normal in their visualized segments, although they were largely obscured by bowel gas. IMPRESSION: There is cholelithiasis along with gallbladder wall thickening, consistent with cholecystitis. Electronically signed by: Hussein Yusuf Jr., MD (12/23/2018 9:33 PM) [facility]
[2018-12-23 22:21] VITALS: BP 124/79
--- NOTE | 2018-12-24 03:33 | RAD ---
CHEST PA LATERAL History: Chest tightness Comparison: Two-view chest, December 13, 2018. Findings: The cardiomediastinal silhouette is enlarged but stable. Prior CABG. Pulmonary vasculature is normal. Stable scarring in the right upper lobe. Tiny calcified granuloma left midlung. No pleural effusion or pneumothorax is seen. Degenerative arthropathy of the shoulders. IMPRESSION: 1. Stable scarring in the right upper lobe. 2. Stable cardiomegaly. Electronically signed by: Darren Mcgowan MD (12/24/2018 3:30 AM) [id number]
[2018-12-24 03:46] VITALS: BP 112/85
[2018-12-24 07:00] VITALS: BP 143/85
[2018-12-24] MEDS: IV NORMAL SALINE 1000ML BAG 1,000 ML IV SCH (07:30)
[2018-12-24] MEDS ORDERED: APIX5TAB PO (07:34)
[2018-12-24] MEDS ORDERED: MELA3TAB2 PO (07:35)
[2018-12-24] MEDS ORDERED: NITROGLYCERIN SUBLINGUAL 0.4 MG BOTTLE OF 25. SL PRN (08:15)
[2018-12-24] MEDS ORDERED: NON FORMULARY ITEM (Melatonin 10 MG) PO PRN (08:15)
[2018-12-24] MEDS ORDERED: HYDROcodone/APAP 5/325MG 1 TAB TABLET PO PRN (08:15)
--- NOTE | 2018-12-24 08:18 | PDOC1 ---
History and Physical Date of Admission Date of Admission 12/23/18 Identification/Chief Complaint Chief Complaint short of breath, bloating Source Source: Chart review, Patient History of Present Illness History of Present Illness progressive SOA past few days along with feeling bloated, no nausea or vomiting, no chest pain. Found to be in acute heart failure and also to have acute cholecystitis Past Medical History Cardiovascular: AFIB, CAD, CHF, HTN, PA, Hyperlipidemia Pulmonary: COPD GI: GI bleed Heme/Onc: Anemia NOS, Iron deficiency Anemia Hepatobiliary: Cholelithiasis Psych: Anxiety, Depression Rheumatologic: Other (OA) Infectious disease: No pertinent hx ENT: Other (hearing loss) Endocrine: Diabetes Dermatology: No pertinent hx Past Surgical History Past Surgical History: CABG, Cataract Removal, Tonsillectomy Family History Family History: Coronary Artery Disease, Hypertension Social History Smoke: Quit ALCOHOL: rare Drugs: None Current Problem List Problem List Problems Medical Problems: (1) Acute exacerbation of CHF (congestive heart failure) Status: Acute (2) Gallstone Status: Acute (3) Pancreatitis Status: Acute Current Medications Current Medications Current Medications Medications (Trade) Dose Ordered Sig/Jadyn Start Time Stop Time Status Last Admin Dose Admin Albuterol/ Ipratropium (Duoneb) 3 ml 1X ONCE 12/23/18 18:00 12/23/18 18:01 DC 12/23/18 18:26 3 ML Ceftriaxone Sodium (Rocephin) 1 gm 1X ONCE 12/23/18 19:00 12/23/18 19:01 DC 12/23/18 19:20 1 GM Diphenhydramine HCl (Benadryl) 50 mg 1X ONCE 12/23/18 19:00 12/23/18 19:01 DC 12/23/18 19:55 50 MG Doxycycline Hyclate 100 mg/ Dextrose 100 ml @ 50 mls/hr 1X ONCE 12/23/18 19:00 12/23/18 20:59 DC 12/23/18 19:27 50 MLS/HR Furosemide (Lasix) 20 mg 1X ONCE 12/23/18 19:00 12/23/18 19:01 DC 12/23/18 19:23 20 MG Info (CONTRAST GIVEN -- Rx MONITORING) 1 each PRN DAILY PRN 12/23/18 19:00 12/25/18 18:59 Iohexol (Omnipaque 350 Mg/ml) 75 ml 1X ONCE 12/23/18 19:30 12/23/18 19:31 DC 12/23/18 19:22 75 ML Methylprednisolone Sodium Succinate (SOLU-Medrol 125MG VIAL) 125 mg 1X ONCE 12/23/18 19:00 12/23/18 19:01 DC 12/23/18 19:54 125 MG Metronidazole 100 ml @ 100 mls/hr 1X ONCE 12/23/18 20:30 12/23/18 21:29 DC 12/23/18 21:37 100 MLS/HR Sodium Chloride 1,000 ml @ 100 mls/hr Q10H 12/23/18 21:30 12/24/18 21:29 Allergies Allergies Allergies Coded Allergies Type Severity Reaction Last Updated Verified Iodinated Contrast- Oral and IV Dye Allergy Intermediate 10/11/18 Yes ROS Review of System CONSTITUTIONAL: No fever or chills EYES: No recent changes SKIN: No rash or itching CARDIOVASCULAR: see HPI RESPIRATORY: + SOB but no cough GASTROINTESTINAL: No nausea, vomiting or abdominal pain NEUROLOGICAL: No headaches or weakness ENDOCRINE: No cold or heat intolerance GENITOURINARY: No urgency or frequency of urination MUSCULOSKELETAL: No back pain or joint pain LYMPHATICS: No enlarged lymph nodes PSYCHIATRIC: No anxiety or depression Physical Exam Physical Exam GEN.: No apparent distress. Alert and oriented. HEENT: Head is normocephalic, atraumatic NECK: Supple. LUNGS: Clear to auscultation. HEART: RRR, S1, S2 present. Peripheral pulses intact ABDOMEN: Soft, nontender. Positive bowel sounds. EXTREMITIES: Without any cyanosis. NEUROLOGIC: Normal speech, normal tone PSYCHIATRIC: Normal affect, normal mood. SKIN: No ulcerations Vitals Vitals Vital Signs Date Time Temp Pulse Resp B/P (MAP) Pulse Ox O2 Delivery O2 Flow Rate FiO2 12/24/18 03:46 97.7 86 18 112/85 (94) 98 Nasal Cannula 2.0 97.7 Labs Labs Laboratory Tests Test 12/23/18 17:31 12/23/18 20:17 White Blood Count 5.6 x10^3/uL (4.0-11.0) Red Blood Count 4.08 x10^6/uL (4.30-5.70) Hemoglobin 12.1 g/dL (13.0-17.5) Hematocrit 36.4 % (39.0-53.0) Mean Corpuscular Volume 89 fL (79-100) Mean Corpuscular Hemoglobin 30 pg (25-35) Mean Corpuscular Hemoglobin Concent 33 g/dL (31-37) Red Cell Distribution Width 15.9 % (11.5-14.5) Platelet Count 165 x10^3/uL (140-400) Neutrophils (%) (Auto) 59 % (31-73) Lymphocytes (%) (Auto) 27 % (24-48) Monocytes (%) (Auto) 11 % (0-9) Eosinophils (%) (Auto) 1 % (0-3) Basophils (%) (Auto) 1 % (0-3) Neutrophils # (Auto) 3.3 x10^3/uL (1.8-7.7) Lymphocytes # (Auto) 1.5 x10^3/uL (1.0-4.8) Monocytes # (Auto) 0.6 x10^3/uL (0.0-1.1) Eosinophils # (Auto) 0.1 x10^3/uL (0.0-0.7) Basophils # (Auto) 0.0 x10^3/uL (0.0-0.2) Prothrombin Time 16.1 SEC (11.7-14.0) Prothromb Time International Ratio 1.3 (0.8-1.1) Activated Partial Thromboplast Time 52 SEC (24-38) D-Dimer (Gabriela) 0.98 ug/mlFEU (0.00-0.50) Sodium Level 140 mmol/L (136-145) Potassium Level 4.7 mmol/L (3.5-5.1) Chloride Level 103 mmol/L (98-107) Carbon Dioxide Level 25 mmol/L (21-32) Anion Gap 12 (6-14) Blood Urea Nitrogen 29 mg/dL (8-26) Creatinine 1.3 mg/dL (0.7-1.3) Estimated GFR (Cockcroft-Gault) 53.5 BUN/Creatinine Ratio 22 (6-20) Glucose Level 117 mg/dL (70-99) Calcium Level 9.3 mg/dL (8.5-10.1) Magnesium Level 1.6 mg/dL (1.8-2.4) Total Bilirubin 0.5 mg/dL (0.2-1.0) Aspartate Amino Transf (AST/SGOT) 18 U/L (15-37) Alanine Aminotransferase (ALT/SGPT) 22 U/L (16-63) Alkaline Phosphatase 68 U/L (46-116) Creatine Kinase 60 U/L (39-308) Creatine Kinase MB (Mass) 1.5 ng/mL (0.0-3.6) Creatine Kinase MB Relative Index % (0-4) Troponin I Quantitative 0.026 ng/mL (0.000-0.055) PF-Rcg-K-Type Natriuretic Peptide 90805 pg/mL (0-449) Total Protein 7.5 g/dL (6.4-8.2) Albumin 3.6 g/dL (3.4-5.0) Albumin/Globulin Ratio 0.9 (1.0-1.7) Lipase 401 U/L (73-393) Urine Collection Type Unknown Urine Color Yellow Urine Clarity Clear Urine pH 6.0 Urine Specific [place] 1.015 Urine Protein 30 mg/dL (NEG-TRACE) Urine Glucose (UA) Negative mg/dL (NEG) Urine Ketones (Stick) Negative mg/dL (NEG) Urine Blood Negative (NEG) Urine Nitrite Negative (NEG) Urine Bilirubin Negative (NEG) Urine Urobilinogen Dipstick 0.2 mg/dL (0.2 mg/dL) Urine Leukocyte Esterase Negative (NEG) Urine RBC 0 /HPF (0-2) Urine WBC Occ /HPF (0-4) Urine Bacteria 0 /HPF (0-FEW) Laboratory Tests Test 12/23/18 17:31 12/23/18 20:17 White Blood Count 5.6 x10^3/uL (4.0-11.0) Red Blood Count 4.08 x10^6/uL (4.30-5.70) Hemoglobin 12.1 g/dL (13.0-17.5) Hematocrit 36.4 % (39.0-53.0) Mean Corpuscular Volume 89 fL (79-100) Mean Corpuscular Hemoglobin 30 pg (25-35) Mean Corpuscular Hemoglobin Concent 33 g/dL (31-37) Red Cell Distribution Width 15.9 % (11.5-14.5) Platelet Count 165 x10^3/uL (140-400) Neutrophils (%) (Auto) 59 % (31-73) Lymphocytes (%) (Auto) 27 % (24-48) Monocytes (%) (Auto) 11 % (0-9) Eosinophils (%) (Auto) 1 % (0-3) Basophils (%) (Auto) 1 % (0-3) Neutrophils # (Auto) 3.3 x10^3/uL (1.8-7.7) Lymphocytes # (Auto) 1.5 x10^3/uL (1.0-4.8) Monocytes # (Auto) 0.6 x10^3/uL (0.0-1.1) Eosinophils # (Auto) 0.1 x10^3/uL (0.0-0.7) Basophils # (Auto) 0.0 x10^3/uL (0.0-0.2) Prothrombin Time 16.1 SEC (11.7-14.0) Prothromb Time International Ratio 1.3 (0.8-1.1) Activated Partial Thromboplast Time 52 SEC (24-38) D-Dimer (Gabriela) 0.98 ug/mlFEU (0.00-0.50) Sodium Level 140 mmol/L (136-145) Potassium Level 4.7 mmol/L (3.5-5.1) Chloride Level 103 mmol/L (98-107) Carbon Dioxide Level 25 mmol/L (21-32) Anion Gap 12 (6-14) Blood Urea Nitrogen 29 mg/dL (8-26) Creatinine 1.3 mg/dL (0.7-1.3) Estimated GFR (Cockcroft-Gault) 53.5 BUN/Creatinine Ratio 22 (6-20) Glucose Level 117 mg/dL (70-99) Calcium Level 9.3 mg/dL (8.5-10.1) Magnesium Level 1.6 mg/dL (1.8-2.4) Total Bilirubin 0.5 mg/dL (0.2-1.0) Aspartate Amino Transf (AST/SGOT) 18 U/L (15-37) Alanine Aminotransferase (ALT/SGPT) 22 U/L (16-63) Alkaline Phosphatase 68 U/L (46-116) Creatine Kinase 60 U/L (39-308) Creatine Kinase MB (Mass) 1.5 ng/mL (0.0-3.6) Creatine Kinase MB Relative Index % (0-4) Troponin I Quantitative 0.026 ng/mL (0.000-0.055) SA-Sfm-I-Type Natriuretic Peptide 83102 pg/mL (0-449) Total Protein 7.5 g/dL (6.4-8.2) Albumin 3.6 g/dL (3.4-5.0) Albumin/Globulin Ratio 0.9 (1.0-1.7) Lipase 401 U/L (73-393) Urine Collection Type Unknown Urine Color Yellow Urine Clarity Clear Urine pH 6.0 Urine Specific [place] 1.015 Urine Protein 30 mg/dL (NEG-TRACE) Urine Glucose (UA) Negative mg/dL (NEG) Urine Ketones (Stick) Negative mg/dL (NEG) Urine Blood Negative (NEG) Urine Nitrite Negative (NEG) Urine Bilirubin Negative (NEG) Urine Urobilinogen Dipstick 0.2 mg/dL (0.2 mg/dL) Urine Leukocyte Esterase Negative (NEG) Urine RBC 0 /HPF (0-2) Urine WBC Occ /HPF (0-4) Urine Bacteria 0 /HPF (0-FEW) Images Images PROCEDURE: CT ANGIOGRAPHY CHEST CTA chest with and without contrast 12/23/2018. Reason for exam: Shortness of breath. Elevated d-dimer. Helical thin section images were made through the chest using an infusion of 75 mL Omnipaque 350. MIP reconstructions were performed. Exposure: One or more of the following individualized dose reduction techniques were utilized for this examination: 1. Automated exposure control 2. Adjustment of the mA and/or kV according to patient size 3. Use of iterative reconstruction technique. FINDINGS: There are small bilateral pleural effusions. There is some groundglass density in the lower lungs possibly indicating mild edema. Some scarring is seen in the right upper lobe. There is atelectasis posteriorly in both lower lobes. There is some mild interlobular septal thickening consistent with interstitial edema. No other pulmonary parenchymal abnormality is seen. The central airways show no obstruction. No enlarged lymph nodes are seen. Opacification of the thoracic aorta is not adequate for evaluation. The aorta does not appear dilated. Evaluation of the pulmonary arterial tree shows no abnormal filling defect extending to the subsegmental branch level. Images through the upper abdomen show multiple gallstones in the gallbladder. There is reflux of contrast into the IVC and hepatic veins. IMPRESSION: No evidence of pulmonary embolism. There are findings that may indicate CHF. Cholelithiasis. VTE Prophylaxis Ordered VTE Prophylaxis Devices: Yes VTE Pharmacological Prophylaxi: Yes Assessment/Plan Assessment/Plan acute on chronic diastolic heart failure - diurese, cardiology consult acute cholecystitis - surgery consult mild gallstone pancreatitis - GI consult recent GI bleed - Hgb nearly back to normal with iron but he required prior transfusions Zakiya HERNANDEZ MD Dec 24, 2018 08:18
--- NOTE | 2018-12-24 08:29 | PDOC2 ---
[facility] [employer] [facility] 12/24/18 0829: CONSULT Date of Consult Date of Consult DATE: 12/24/18 TIME: 08:20 Reason for Consult Reason for Consult: possible cholecystitis Referring Physician Referring Physician: ER Identification/Chief Complaint Chief Complaint SOA, bloating Source Source: Chart review, Patient History of Present Illness Reason for Visit: Reports SOA for a couple of weeks. The last few days more SOA, bloating. Reports no abdominal pain, did feel more on constipated side. No nausea or emesis, however low appetite. Denies any hx of CHF. Past Medical History Cardiovascular: AFIB, CAD, HTN, MS, Hyperlipidemia CENTRAL NERVOUS SYSTEM: Periperal neuropathy GI: GERD Psych: Anxiety, Depression Musculoskeletal: low back pain Endocrine: Diabetes, Hypothyroidism Past Surgical History Past Surgical History: Other (back) Family History Family History: Other (noncontributory to current illness ) Social History Quit (25 years ago) ALCOHOL: occassional Drugs: None Lives: with Family Current Problem List Problem List Problems Medical Problems: (1) Acute exacerbation of CHF (congestive heart failure) Status: Acute (2) Gallstone Status: Acute (3) Pancreatitis Status: Acute Current Medications Current Medications Current Medications Albuterol/ Ipratropium (Duoneb) 3 ml 1X ONCE NEB Last administered on 12/23/18at 18:26; Start 12/23/18 at 18:00; Stop 12/23/18 at 18:01; Status DC Methylprednisolone Sodium Succinate (SOLU-Medrol 125MG VIAL) 125 mg 1X ONCE IV ; Start 12/23/18 at 18:00; Stop 12/23/18 at 18:00; Status DC Ceftriaxone Sodium (Rocephin) 1 gm 1X ONCE IVP Last administered on 12/23/18at 19:20; Start 12/23/18 at 19:00; Stop 12/23/18 at 19:01; Status DC Doxycycline Hyclate 100 mg/ Dextrose 100 ml @ 50 mls/hr 1X ONCE IV Last administered on 12/23/18at 19:27; Start 12/23/18 at 19:00; Stop 12/23/18 at 20:59; Status DC Diphenhydramine HCl (Benadryl) 50 mg 1X ONCE IVP Last administered on 12/23/18at 19:55; Start 12/23/18 at 19:00; Stop 12/23/18 at 19:01; Status DC Methylprednisolone Sodium Succinate (SOLU-Medrol 125MG VIAL) 125 mg 1X ONCE IV Last administered on 12/23/18at 19:54; Start 12/23/18 at 19:00; Stop 12/23/18 at 19:01; Status DC Furosemide (Lasix) 20 mg 1X ONCE PO Last administered on 12/23/18at 19:23; Start 12/23/18 at 19:00; Stop 12/23/18 at 19:01; Status DC Iohexol (Omnipaque 350 Mg/ml) 75 ml 1X ONCE IV Last administered on 12/23/18at 19:22; Start 12/23/18 at 19:30; Stop 12/23/18 at 19:31; Status DC Info (CONTRAST GIVEN -- Rx MONITORING) 1 each PRN DAILY PRN MC SEE COMMENTS; Start 12/23/18 at 19:00; Stop 12/25/18 at 18:59 Metronidazole 100 ml @ 100 mls/hr 1X ONCE IV Last administered on 12/23/18at 21:37; Start 12/23/18 at 20:30; Stop 12/23/18 at 21:29; Status DC Sodium Chloride 1,000 ml @ 100 mls/hr Q10H IV ; Start 12/23/18 at 21:30; Stop 12/24/18 at 21:29 Amiodarone HCl (Cordarone) 200 mg HS PO ; Start 12/24/18 at 21:00; Status UNV Apixaban (Eliquis) 5 mg BID PO ; Start 12/24/18 at 09:00; Status UNV Gemfibrozil (Lopid) 600 mg BID PO ; Start 12/24/18 at 09:00; Status UNV Acetaminophen/ Hydrocodone Bitart (Lortab 5/325) 1 tab PRN Q6HRS PRN PO PAIN; Start 12/24/18 at 08:15; Status UNV Levothyroxine Sodium (Synthroid) 75 mcg DAILY PO ; Start 12/24/18 at 09:00; Status UNV Metoprolol Succinate (Toprol Xl) 25 mg DAILY PO ; Start 12/24/18 at 09:00; Status UNV Nitroglycerin (Nitrostat) 0.4 mg PRN Q5MIN PRN SL CHEST PAIN; Start 12/24/18 at 08:15; Status UNV Fish Oil (Fish Oil) 1,000 mg DAILY PO ; Start 12/24/18 at 09:00; Status UNV Non-Formulary Medication (Acetaminophen (Tylenol Extra Strength)) 1,000 mg PRN Q6HRS PRN PO MILD PAIN / TEMP; Start 12/24/18 at 08:15; Status UNV Non-Formulary Medication (Cholecalciferol (Vitamin D3) (D3-2000)) 2,000 unit DAILY PO ; Start 12/24/18 at 09:00; Status UNV Non-Formulary Medication (Glipizide (Glipizide Er)) 5 mg BID76 PO ; Start 12/24/18 at 18:00; Status UNV Non-Formulary Medication (Lansoprazole (Prevacid)) 15 mg 4X/WEEK PO ; Start 12/24/18 at 08:15; Status UNV Non-Formulary Medication (Melatonin ) 10 mg QHS PRN PO INSOMNIA; Start 12/24/18 at 08:15; Status UNV Non-Formulary Medication (Metformin Hcl ) 500 mg DAILYBFRSUP PO ; Start 12/24/18 at 17:00; Status UNV Non-Formulary Medication (Multivitamin (Multi-Vitamin Daily)) 1 each DAILY PO ; Start 12/24/18 at 09:00; Status UNV Non-Formulary Medication (Polyethylene Glycol 3350 (Miralax)) 1 packet PRN PRN PO CONSTIPATION; Start 12/24/18 at 08:15; Status UNV Non-Formulary Medication (Simvastatin ) 40 mg HS PO ; Start 12/24/18 at 21:00; Status UNV Active Scripts Active [place] 5-325 Tablet (Acetaminophen/Hydrocodone Bitart) 1 Each Tablet 1-2 Each PO PRN Q6HRS PRN as needed for pain Metoprolol Succinate ( Xl ) (Metoprolol Succinate) 25 Mg Tab.er.24h 25 Mg PO DAILY 30 Days Reported Melatonin 3 Mg Tablet 10 Mg PO QHS PRN Eliquis (Apixaban) 5 Mg Tablet 5 Mg PO BID Miralax (Polyethylene Glycol 3350) 17 Gm Powd.pack 1 Packet PO PRN PRN Fish Oil 1,000 Mg Capsule ([place]-3 Fatty Acids/Fish Oil) 1 Each Capsule 1 Each PO DAILY Natural Fiber (Psyllium Husk) 0.52 Gm Capsule Unknown Dose PO TID PRN Levothyroxine Sodium 75 Mcg Tablet 1 Tab PO DAILY Simvastatin 40 Mg Tablet 40 Mg PO HS LAST DOSE GIVEN: DATE: 09/25 TIME: 9 pm NEXT DOSE DUE: DATE: 09/26 TIME: 9 pm D3-2000 (Cholecalciferol (Vitamin D3)) 2,000 Unit Capsule 2,000 Unit PO DAILY LAST DOSE GIVEN: DATE: not givne TIME: NEXT DOSE DUE: DATE: may resume at home as ordered by doctor TIME: Multi-Vitamin Daily (Multivitamin) 1 Each Tablet 1 Each PO DAILY LAST DOSE GIVEN: DATE: not given TIME: NEXT DOSE DUE: DATE: May resume at home as ordered by doctor. TIME: Prevacid (Lansoprazole) 15 Mg Tab.rap.dr 15 Mg PO 4X/WEEK TAKES ONE ON MON, , , SAT ONLY Tylenol Extra Strength (Acetaminophen) 500 Mg Tablet 1,000 Mg PO PRN Q6HRS PRN LAST DOSE GIVEN: DATE: TIME:Not given. NEXT DOSE DUE: DATE: TIME:May take as directed by doctor. Do not exceed 4000 mg of tylenol in 24 hours. Nitrostat (Nitroglycerin) 0.4 Mg Tab.subl 0.4 Mg SL PRN Q5MIN PRN LAST DOSE GIVEN: DATE: not given TIME: NEXT DOSE DUE: DATE: May resume at home as ordered by doctor. TIME: Metformin Hcl 500 Mg Tablet 500 Mg PO DAILYBFRSUP may resume metformin in 48 hours(Monday evening) DATE: 09/25 TIME: 9 pm NEXT DOSE DUE: DATE: 09/26 TIME: 9 pm Glipizide Er (Glipizide) 5 Mg Tab.er.24 5 Mg PO BID76 LAST DOSE GIVEN: DATE: not given TIME: NEXT DOSE DUE: DATE: May resume at home as ordered by doctor. TIME: Gemfibrozil 600 Mg Tablet 600 Mg PO BID LAST DOSE GIVEN: DATE: 09/26 TIME: 9 am NEXT DOSE DUE: DATE: 09/26 TIME: 9 pm Amiodarone Hcl 200 Mg Tablet 200 Mg PO HS LAST DOSE GIVEN: DATE: 09/25 TIME: 9 pm NEXT DOSE DUE: DATE: 09/26 TIME: 9 pm Allergies Allergies: Coded Allergies: Iodinated Contrast- Oral and IV Dye (Verified Allergy, Intermediate, 10/11/18) V TACH ROS General: No: Chills, Other (fevers) PSYCHOLOGICAL ROS: No: Anxiety, Depression Eyes: No Blurry vision, No Double vision HEENT: No: Heacaches Hematological and Lymphatic: YES: Bleeding Problems; No: Blood Clots Respiratory: YES: Cough, Shortness of breath Cardiovascular: No Chest Pain, No Palpitations Gastrointestinal: Yes Other (see hpi) Musculoskeletal: No Joint Pain, No Muscle Pain Neurological: No Impaired Coord/balance, No Numbness/Tingling Skin: No Pruritus, No Rash Physical Exam General: Alert, Oriented X3, Cooperative, No acute distress HEENT: PERRLA, Mucous membr. moist/pink Lungs: Clear to auscultation, Normal air movement Heart: Regular rate, Normal S1, Normal S2, No murmurs Abdomen: Soft, Other (mildly distended, NTTP) Extremities: No clubbing, No cyanosis Skin: No rashes, No breakdown Neuro: Normal gait, Normal speech Psych/Mental Status: Mental status NL, Mood NL MUSCULOSKELETAL: No deformity, No swelling Vitals VITALS Vital Signs Date Time Temp Pulse Resp B/P (MAP) Pulse Ox O2 Delivery O2 Flow Rate FiO2 12/24/18 03:46 97.7 86 18 112/85 (94) 98 Nasal Cannula 2.0 97.7 Labs Labs Laboratory Tests Test 12/23/18 17:31 12/23/18 20:17 White Blood Count 5.6 x10^3/uL (4.0-11.0) Red Blood Count 4.08 x10^6/uL (4.30-5.70) Hemoglobin 12.1 g/dL (13.0-17.5) Hematocrit 36.4 % (39.0-53.0) Mean Corpuscular Volume 89 fL (79-100) Mean Corpuscular Hemoglobin 30 pg (25-35) Mean Corpuscular Hemoglobin Concent 33 g/dL (31-37) Red Cell Distribution Width 15.9 % (11.5-14.5) Platelet Count 165 x10^3/uL (140-400) Neutrophils (%) (Auto) 59 % (31-73) Lymphocytes (%) (Auto) 27 % (24-48) Monocytes (%) (Auto) 11 % (0-9) Eosinophils (%) (Auto) 1 % (0-3) Basophils (%) (Auto) 1 % (0-3) Neutrophils # (Auto) 3.3 x10^3/uL (1.8-7.7) Lymphocytes # (Auto) 1.5 x10^3/uL (1.0-4.8) Monocytes # (Auto) 0.6 x10^3/uL (0.0-1.1) Eosinophils # (Auto) 0.1 x10^3/uL (0.0-0.7) Basophils # (Auto) 0.0 x10^3/uL (0.0-0.2) Prothrombin Time 16.1 SEC (11.7-14.0) Prothromb Time International Ratio 1.3 (0.8-1.1) Activated Partial Thromboplast Time 52 SEC (24-38) D-Dimer (Gabriela) 0.98 ug/mlFEU (0.00-0.50) Sodium Level 140 mmol/L (136-145) Potassium Level 4.7 mmol/L (3.5-5.1) Chloride Level 103 mmol/L (98-107) Carbon Dioxide Level 25 mmol/L (21-32) Anion Gap 12 (6-14) Blood Urea Nitrogen 29 mg/dL (8-26) Creatinine 1.3 mg/dL (0.7-1.3) Estimated GFR (Cockcroft-Gault) 53.5 BUN/Creatinine Ratio 22 (6-20) Glucose Level 117 mg/dL (70-99) Calcium Level 9.3 mg/dL (8.5-10.1) Magnesium Level 1.6 mg/dL (1.8-2.4) Total Bilirubin 0.5 mg/dL (0.2-1.0) Aspartate Amino Transf (AST/SGOT) 18 U/L (15-37) Alanine Aminotransferase (ALT/SGPT) 22 U/L (16-63) Alkaline Phosphatase 68 U/L (46-116) Creatine Kinase 60 U/L (39-308) Creatine Kinase MB (Mass) 1.5 ng/mL (0.0-3.6) Creatine Kinase MB Relative Index % (0-4) Troponin I Quantitative 0.026 ng/mL (0.000-0.055) AB-Ify-Q-Type Natriuretic Peptide 72130 pg/mL (0-449) Total Protein 7.5 g/dL (6.4-8.2) Albumin 3.6 g/dL (3.4-5.0) Albumin/Globulin Ratio 0.9 (1.0-1.7) Lipase 401 U/L (73-393) Urine Collection Type Unknown Urine Color Yellow Urine Clarity Clear Urine pH 6.0 Urine Specific [place] 1.015 Urine Protein 30 mg/dL (NEG-TRACE) Urine Glucose (UA) Negative mg/dL (NEG) Urine Ketones (Stick) Negative mg/dL (NEG) Urine Blood Negative (NEG) Urine Nitrite Negative (NEG) Urine Bilirubin Negative (NEG) Urine Urobilinogen Dipstick 0.2 mg/dL (0.2 mg/dL) Urine Leukocyte Esterase Negative (NEG) Urine RBC 0 /HPF (0-2) Urine WBC Occ /HPF (0-4) Urine Bacteria 0 /HPF (0-FEW) Laboratory Tests Test 12/23/18 17:31 12/23/18 20:17 White Blood Count 5.6 x10^3/uL (4.0-11.0) Red Blood Count 4.08 x10^6/uL (4.30-5.70) Hemoglobin 12.1 g/dL (13.0-17.5) Hematocrit 36.4 % (39.0-53.0) Mean Corpuscular Volume 89 fL (79-100) Mean Corpuscular Hemoglobin 30 pg (25-35) Mean Corpuscular Hemoglobin Concent 33 g/dL (31-37) Red Cell Distribution Width 15.9 % (11.5-14.5) Platelet Count 165 x10^3/uL (140-400) Neutrophils (%) (Auto) 59 % (31-73) Lymphocytes (%) (Auto) 27 % (24-48) Monocytes (%) (Auto) 11 % (0-9) Eosinophils (%) (Auto) 1 % (0-3) Basophils (%) (Auto) 1 % (0-3) Neutrophils # (Auto) 3.3 x10^3/uL (1.8-7.7) Lymphocytes # (Auto) 1.5 x10^3/uL (1.0-4.8) Monocytes # (Auto) 0.6 x10^3/uL (0.0-1.1) Eosinophils # (Auto) 0.1 x10^3/uL (0.0-0.7) Basophils # (Auto) 0.0 x10^3/uL (0.0-0.2) Prothrombin Time 16.1 SEC (11.7-14.0) Prothromb Time International Ratio 1.3 (0.8-1.1) Activated Partial Thromboplast Time 52 SEC (24-38) D-Dimer (Gabriela) 0.98 ug/mlFEU (0.00-0.50) Sodium Level 140 mmol/L (136-145) Potassium Level 4.7 mmol/L (3.5-5.1) Chloride Level 103 mmol/L (98-107) Carbon Dioxide Level 25 mmol/L (21-32) Anion Gap 12 (6-14) Blood Urea Nitrogen 29 mg/dL (8-26) Creatinine 1.3 mg/dL (0.7-1.3) Estimated GFR (Cockcroft-Gault) 53.5 BUN/Creatinine Ratio 22 (6-20) Glucose Level 117 mg/dL (70-99) Calcium Level 9.3 mg/dL (8.5-10.1) Magnesium Level 1.6 mg/dL (1.8-2.4) Total Bilirubin 0.5 mg/dL (0.2-1.0) Aspartate Amino Transf (AST/SGOT) 18 U/L (15-37) Alanine Aminotransferase (ALT/SGPT) 22 U/L (16-63) Alkaline Phosphatase 68 U/L (46-116) Creatine Kinase 60 U/L (39-308) Creatine Kinase MB (Mass) 1.5 ng/mL (0.0-3.6) Creatine Kinase MB Relative Index % (0-4) Troponin I Quantitative 0.026 ng/mL (0.000-0.055) HS-Cds-Y-Type Natriuretic Peptide 48255 pg/mL (0-449) Total Protein 7.5 g/dL (6.4-8.2) Albumin 3.6 g/dL (3.4-5.0) Albumin/Globulin Ratio 0.9 (1.0-1.7) Lipase 401 U/L (73-393) Urine Collection Type Unknown Urine Color Yellow Urine Clarity Clear Urine pH 6.0 Urine Specific [place] 1.015 Urine Protein 30 mg/dL (NEG-TRACE) Urine Glucose (UA) Negative mg/dL (NEG) Urine Ketones (Stick) Negative mg/dL (NEG) Urine Blood Negative (NEG) Urine Nitrite Negative (NEG) Urine Bilirubin Negative (NEG) Urine Urobilinogen Dipstick 0.2 mg/dL (0.2 mg/dL) Urine Leukocyte Esterase Negative (NEG) Urine RBC 0 /HPF (0-2) Urine WBC Occ /HPF (0-4) Urine Bacteria 0 /HPF (0-FEW) Assessment/Plan Assessment/Plan SOA, bloating new onset CHF findings elevated lipase--CT without acute findings, no pain ? acute cholecystitis on imaging--however no pain, benign exam--will check LUIZA MATHIEU ROBLES MD 12/24/18 1006: CONSULT Assessment/Plan Assessment/Plan Patient seen and examined by me currently resting comfortably denies any abdominal pain. Denies any difficulties with eating has no postprandial nausea. Did know that he had gallstones but is never been an issue for him. Reviewed CT scan and ultrasound reports thickening gallbladder wall likely secondary to his diffuse edema from his congestive heart failure. Agree with Alannah assessment and plan for HIDA scan for further evaluation PAPITO STAFFORD APRN Dec 24, 2018 08:29 MATHIEU ROBLES MD Dec 24, 2018 10:06
[2018-12-24] MEDS ORDERED: ACETAMINOPHEN 500 MG TABLET PO PRN (08:30)
[2018-12-24] MEDS ORDERED: AMINO AC 3%/ELECTROLYTE/GLYCER 1,000 ML IV SCH (08:30)
[2018-12-24] MEDS ORDERED: POLYETHYLENE GLYCOL 3350 17 GM PACKET. PO PRN (09:00)
--- NOTE | 2018-12-24 09:17 | PDOC2 ---
GI CONSULT Reason For Consult: Gallstones, pancreatitis HPI: HPI: 78 y/o male who we have seen in the past. "Not getting enough air" x 1 week, worse Monday. Recently fell off a scooter, has some right-sided upper chest wall pain that goes to his back - worse when moving after laying down for awhile. Also had some LLQ pain and thumb pain that went away after taking leftover antibiotics. No n/v, dysphagia, abd pain, diarrhea, or bleeding. Feels bloated. Eating without issue. H/o GERD controlled w/ Prevacid QOD. H/o constipation controlled w/ Miralax - recently has felt incomplete emptying, has 2-3 stools daily. 'Scopes w/ Dr. Hernández in Home ~3 years ago w/ colon polyps. We saw him in 09/2018 for dark stools and anemia on Eliquis. EGD showed non-erosive gastritis. Bleeding scan was negative. Colonoscopy was reportedly normal as outpt later that month. SBS in 10/2018 was unremarkable. Known cholelithiasis. No pancreas, liver, or PUD history. PMH: PMH: CAD w/ stents, PVD w/ stents, A Fib, [place], HTN, HLD, PATRICIA, DM, hypothyroidism, CKD, peripheral neuropathy, GERD, colon polyps, diverticulosis/itis, anxiety/depression CABG x 2, cardiac ablation, laminectomy and microdiscectomy, tonsillectomy, cataract removal FH: Family History: No pertinent hx Social History: Smoke: Quit ALCOHOL: rare Drugs: None ROS: GEN: Denies fevers, chills, sweats HEENT: Denies blurred vision, sore throat CV: Denies chest pain RESP: +SOA GI: Per HPI : Denies hematuria, dysuria ENDO: Denies weight changes NEURO: Denies confusion, dizziness MSK: +chest pain 2/2 fall SKIN: Denies jaundice, pruritus Vitals: Vitals: Vital Signs Date Time Temp Pulse Resp B/P (MAP) Pulse Ox O2 Delivery O2 Flow Rate FiO2 12/24/18 07:00 98.1 81 18 143/85 (104) 96 Nasal Cannula 2.0 98.1 Labs: Labs: Laboratory Tests Test 12/23/18 17:31 12/23/18 20:17 White Blood Count 5.6 x10^3/uL (4.0-11.0) Red Blood Count 4.08 x10^6/uL (4.30-5.70) Hemoglobin 12.1 g/dL (13.0-17.5) Hematocrit 36.4 % (39.0-53.0) Mean Corpuscular Volume 89 fL (79-100) Mean Corpuscular Hemoglobin 30 pg (25-35) Mean Corpuscular Hemoglobin Concent 33 g/dL (31-37) Red Cell Distribution Width 15.9 % (11.5-14.5) Platelet Count 165 x10^3/uL (140-400) Neutrophils (%) (Auto) 59 % (31-73) Lymphocytes (%) (Auto) 27 % (24-48) Monocytes (%) (Auto) 11 % (0-9) Eosinophils (%) (Auto) 1 % (0-3) Basophils (%) (Auto) 1 % (0-3) Neutrophils # (Auto) 3.3 x10^3/uL (1.8-7.7) Lymphocytes # (Auto) 1.5 x10^3/uL (1.0-4.8) Monocytes # (Auto) 0.6 x10^3/uL (0.0-1.1) Eosinophils # (Auto) 0.1 x10^3/uL (0.0-0.7) Basophils # (Auto) 0.0 x10^3/uL (0.0-0.2) Prothrombin Time 16.1 SEC (11.7-14.0) Prothromb Time International Ratio 1.3 (0.8-1.1) Activated Partial Thromboplast Time 52 SEC (24-38) D-Dimer (Gabriela) 0.98 ug/mlFEU (0.00-0.50) Sodium Level 140 mmol/L (136-145) Potassium Level 4.7 mmol/L (3.5-5.1) Chloride Level 103 mmol/L (98-107) Carbon Dioxide Level 25 mmol/L (21-32) Anion Gap 12 (6-14) Blood Urea Nitrogen 29 mg/dL (8-26) Creatinine 1.3 mg/dL (0.7-1.3) Estimated GFR (Cockcroft-Gault) 53.5 BUN/Creatinine Ratio 22 (6-20) Glucose Level 117 mg/dL (70-99) Calcium Level 9.3 mg/dL (8.5-10.1) Magnesium Level 1.6 mg/dL (1.8-2.4) Total Bilirubin 0.5 mg/dL (0.2-1.0) Aspartate Amino Transf (AST/SGOT) 18 U/L (15-37) Alanine Aminotransferase (ALT/SGPT) 22 U/L (16-63) Alkaline Phosphatase 68 U/L (46-116) Creatine Kinase 60 U/L (39-308) Creatine Kinase MB (Mass) 1.5 ng/mL (0.0-3.6) Creatine Kinase MB Relative Index % (0-4) Troponin I Quantitative 0.026 ng/mL (0.000-0.055) IN-Pyo-J-Type Natriuretic Peptide 21307 pg/mL (0-449) Total Protein 7.5 g/dL (6.4-8.2) Albumin 3.6 g/dL (3.4-5.0) Albumin/Globulin Ratio 0.9 (1.0-1.7) Lipase 401 U/L (73-393) Urine Collection Type Unknown Urine Color Yellow Urine Clarity Clear Urine pH 6.0 Urine Specific [place] 1.015 Urine Protein 30 mg/dL (NEG-TRACE) Urine Glucose (UA) Negative mg/dL (NEG) Urine Ketones (Stick) Negative mg/dL (NEG) Urine Blood Negative (NEG) Urine Nitrite Negative (NEG) Urine Bilirubin Negative (NEG) Urine Urobilinogen Dipstick 0.2 mg/dL (0.2 mg/dL) Urine Leukocyte Esterase Negative (NEG) Urine RBC 0 /HPF (0-2) Urine WBC Occ /HPF (0-4) Urine Bacteria 0 /HPF (0-FEW) Allergies: Coded Allergies: Iodinated Contrast- Oral and IV Dye (Verified Allergy, Intermediate, 10/11/18) V TACH Medications: Current Medications Medications (Trade) Dose Ordered Sig/Jadyn Route PRN Reason Start Time Stop Time Status Last Admin Dose Admin Albuterol/ Ipratropium (Duoneb) 3 ml 1X ONCE NEB 12/23/18 18:00 12/23/18 18:01 DC 12/23/18 18:26 Ceftriaxone Sodium (Rocephin) 1 gm 1X ONCE IVP 12/23/18 19:00 12/23/18 19:01 DC 12/23/18 19:20 Doxycycline Hyclate 100 mg/ Dextrose 100 ml @ 50 mls/hr 1X ONCE IV 12/23/18 19:00 12/23/18 20:59 DC 12/23/18 19:27 Diphenhydramine HCl (Benadryl) 50 mg 1X ONCE IVP 12/23/18 19:00 12/23/18 19:01 DC 12/23/18 19:55 Methylprednisolone Sodium Succinate (SOLU-Medrol 125MG VIAL) 125 mg 1X ONCE IV 12/23/18 19:00 12/23/18 19:01 DC 12/23/18 19:54 Furosemide (Lasix) 20 mg 1X ONCE PO 12/23/18 19:00 12/23/18 19:01 DC 12/23/18 19:23 Iohexol (Omnipaque 350 Mg/ml) 75 ml 1X ONCE IV 12/23/18 19:30 12/23/18 19:31 DC 12/23/18 19:22 Metronidazole 100 ml @ 100 mls/hr 1X ONCE IV 12/23/18 20:30 12/23/18 21:29 DC 12/23/18 21:37 Imaging: Imaging: CXR IMPRESSION: 1. Stable scarring in the right upper lobe. 2. Stable cardiomegaly. CT A/P IMPRESSION: Cholelithiasis and possible gallbladder wall thickening and surrounding edema. Findings could indicate cholecystitis. No other acute abnormality is seen. Chest CTA IMPRESSION: No evidence of pulmonary embolism. There are findings that may indicate CHF. Cholelithiasis. Abd SS IMPRESSION: There is cholelithiasis along with gallbladder wall thickening, consistent with cholecystitis. CBD 8mm. PE: GEN: NAD HEENT: Atraumatic, PERRL LUNGS: CTAB anteriorly, NC HEART: RRR - right-sided chest wall discomfort ABD: NABS, S/ND/NT EXTREMITY: No edema SKIN: No rashes, no jaundice NEURO/PSYCH: A & O �3 A/P: A/P: SOA - h/o CAD and A Fib, now w/ elevated BNP and possible CHF changes on imaging Bloating, mildly elevated lipase, cholelithiasis w/ possible GB wall thickening GERD - on PPI CRC screen, h/o polyps - UTD H/o constipation - on Miralax Diverticulosis Anti-coagulated w/ Eliquis -- Unclear significance of mildly elevated lipase. Does have gallstones. Surgery following w/ plans for [facility]. Okay to eat per GI. Continue PPI and Miralax. Will ask for colonoscopy records from our office. SERAFIN PARKER Dec 24, 2018 09:17
[2018-12-24 10:21] LABS: BASO % 0 % (0-3); EOS % 0 % (0-3); HEMATOCRIT 36.2 % (39.0-53.0); HEMOGLOBIN 11.8 g/dL (13.0-17.5); LYMPH # 0.5 x10^3/uL (1.0-4.8); LYMPH % 9 % (24-48); MEAN CORPUSCULAR HEMOGLOBIN 29 pg (25-35); MEAN CORPUSCULAR HGB CONC 33 g/dL (31-37); MEAN CORPUSCULAR VOLUME 89 fL (79-100); MONO # 0.1 x10^3/uL (0.0-1.1); MONO % 2 % (0-9); NEUT # 4.7 x10^3/uL (1.8-7.7); NEUT % 89 % (31-73); PLATELET COUNT 174 x10^3/uL (140-400); RED BLOOD COUNT 4.07 x10^6/uL (4.30-5.70); RED CELL DISTRIBUTION WIDTH 15.8 % (11.5-14.5); WHITE BLOOD COUNT 5.3 x10^3/uL (4.0-11.0)
[2018-12-24] MEDS: POLYETHYLENE GLYCOL 3350 17 GM PACKET. PO SCH (10:30)
[2018-12-24 10:41] LABS: ALBUMIN 3.6 g/dL (3.4-5.0); ALBUMIN/GLOBULIN RATIO 0.9 (1.0-1.7); CALCIUM 9.2 mg/dL (8.5-10.1); CREATININE 1.1 mg/dL (0.7-1.3); GFR 64.9; POTASSIUM 4.4 mmol/L (3.5-5.1); TOTAL BILIRUBIN 0.4 mg/dL (0.2-1.0); TOTAL PROTEIN 7.5 g/dL (6.4-8.2)
[2018-12-24 10:58] LABS: % BANDS 4 % (0-9); % LYMPHS 6 % (24-48); % MONOS 1 % (0-10); % SEGS 89 % (35-66); PLT ESTIMATE ADEQUATE (ADEQUATE)
[2018-12-24 11:00] VITALS: BP 131/86
--- NOTE | 2018-12-24 11:40 | NUR ---
SS following for discharge planning. SS reviewed pt chart. Pt is from home with spouse and is currently requiring oxygen. No discharge needs noted at this time. SS will continue to follow for discharge planning.
--- NOTE | 2018-12-24 12:06 | PDOC2 ---
CARDIAC CONSULT DATE OF CONSULT Date of Consult DATE: 12/24/18 TIME: 11:53 REASON FOR CONSULT Reason for Consult: CHF REFERRING PHYSICIAN Referring Physician: Tova Mcdonald SOURCE Source: Chart review, Patient HISTORY OF PRESENT ILLNESS HISTORY OF PRESENT ILLNESS This is a 78 yo male who presented with complaints of shortness of breath. Has been progressive over the last couple of days. Had tightness in his central chest; felt as if he couldn't get his breath. Associated with orthopnea. No LE edema. No recent fevers/illness. No dizziness, diaphoresis, palpitations or nausea/vomiting. Does reports increased fatigue recently and abdominal bloating. Feels much better following diuresis. SOA and abdominal boating has significantly improved. No further chest tightness. PAST MEDICAL HISTORY Past Medical History Cardiovascular: AFIB, CAD, HTN, Hyperlipidemia, Other (PVD) Pulmonary: Other (PATRICIA) CENTRAL NERVOUS SYSTEM: Other (no pertinent hx ) GI: Diverticulosis, GERD. GI bleed Heme/Onc: Anemia NOS Psych: Anxiety, Depression Musculoskeletal: Osteoarthritis Rheumatologic: Gout Infectious disease: No pertinent hx ENT: No pertinent hx Renal/: No pertinent hx Endocrine: Diabetes, Hypothyroidism PAST SURGICAL HISTORY Past Surgical History: CABG FAMILY HISTORY Family History Coronary Artery Disease, Diabetes, Heart Disease, Hypertension SOCIAL HISTORY Smoke: Quit ALCOHOL: none Drugs: None Lives: with Family CURRENT MEDICATIONS CURRENT MEDICATIONS Current Medications Medications (Trade) Dose Ordered Sig/Jadyn Route PRN Reason Start Time Stop Time Status Last Admin Dose Admin Albuterol/ Ipratropium (Duoneb) 3 ml 1X ONCE NEB 12/23/18 18:00 12/23/18 18:01 DC 12/23/18 18:26 Ceftriaxone Sodium (Rocephin) 1 gm 1X ONCE IVP 12/23/18 19:00 12/23/18 19:01 DC 12/23/18 19:20 Doxycycline Hyclate 100 mg/ Dextrose 100 ml @ 50 mls/hr 1X ONCE IV 12/23/18 19:00 12/23/18 20:59 DC 12/23/18 19:27 Diphenhydramine HCl (Benadryl) 50 mg 1X ONCE IVP 12/23/18 19:00 12/23/18 19:01 DC 12/23/18 19:55 Methylprednisolone Sodium Succinate (SOLU-Medrol 125MG VIAL) 125 mg 1X ONCE IV 12/23/18 19:00 12/23/18 19:01 DC 12/23/18 19:54 Furosemide (Lasix) 20 mg 1X ONCE PO 12/23/18 19:00 12/23/18 19:01 DC 12/23/18 19:23 Iohexol (Omnipaque 350 Mg/ml) 75 ml 1X ONCE IV 12/23/18 19:30 12/23/18 19:31 DC 12/23/18 19:22 Metronidazole 100 ml @ 100 mls/hr 1X ONCE IV 12/23/18 20:30 12/23/18 21:29 DC 12/23/18 21:37 ALLERGIES ALLERGIES: Coded Allergies: Iodinated Contrast- Oral and IV Dye (Verified Allergy, Intermediate, 10/11/18) V TACH ROS Review of System 14 point ROS conducted with pertinent positives noted above in HPI. PHYSICAL EXAM PHYSICAL EXAM General: Alert, Oriented X3, Cooperative, No acute distress HEENT: Atraumatic Lungs: diminished bases, fine bibasilar crackles Heart: Regular rate (AFIB) Abdomen: Soft, No tenderness Extremities: No cyanosis, No edema Skin: No significant lesion Neuro: Normal speech, Sensation intact Psych/Mental Status: Mental status NL, Mood NL MUSCULOSKELETAL: Osteoarthritic changes both hands VITALS/I&O VITALS/I&O: Vital Signs Date Time Temp Pulse Resp B/P (MAP) Pulse Ox O2 Delivery O2 Flow Rate FiO2 12/24/18 11:00 98.2 87 18 131/86 (101) 96 Nasal Cannula 2.0 98.2 I & O 12/23/18 12/23/18 12/24/18 14:59 22:59 06:59 Intake Total 100 ml 0 ml Output Total 240 ml 1500 ml Balance -140 ml -1500 ml LABS Lab: Laboratory Tests Test 12/23/18 17:31 12/23/18 20:17 12/24/18 09:55 White Blood Count 5.6 x10^3/uL (4.0-11.0) 5.3 x10^3/uL (4.0-11.0) Red Blood Count 4.08 x10^6/uL (4.30-5.70) L 4.07 x10^6/uL (4.30-5.70) L Hemoglobin 12.1 g/dL (13.0-17.5) L 11.8 g/dL (13.0-17.5) L Hematocrit 36.4 % (39.0-53.0) L 36.2 % (39.0-53.0) L Mean Corpuscular Volume 89 fL (79-100) 89 fL (79-100) Mean Corpuscular Hemoglobin 30 pg (25-35) 29 pg (25-35) Mean Corpuscular Hemoglobin Concent 33 g/dL (31-37) 33 g/dL (31-37) Red Cell Distribution Width 15.9 % (11.5-14.5) H 15.8 % (11.5-14.5) H Platelet Count 165 x10^3/uL (140-400) 174 x10^3/uL (140-400) Neutrophils (%) (Auto) 59 % (31-73) 89 % (31-73) H Lymphocytes (%) (Auto) 27 % (24-48) 9 % (24-48) L Monocytes (%) (Auto) 11 % (0-9) H 2 % (0-9) Eosinophils (%) (Auto) 1 % (0-3) 0 % (0-3) Basophils (%) (Auto) 1 % (0-3) 0 % (0-3) Neutrophils # (Auto) 3.3 x10^3/uL (1.8-7.7) 4.7 x10^3/uL (1.8-7.7) Lymphocytes # (Auto) 1.5 x10^3/uL (1.0-4.8) 0.5 x10^3/uL (1.0-4.8) L Monocytes # (Auto) 0.6 x10^3/uL (0.0-1.1) 0.1 x10^3/uL (0.0-1.1) Eosinophils # (Auto) 0.1 x10^3/uL (0.0-0.7) 0.0 x10^3/uL (0.0-0.7) Basophils # (Auto) 0.0 x10^3/uL (0.0-0.2) 0.0 x10^3/uL (0.0-0.2) Prothrombin Time 16.1 SEC (11.7-14.0) H Prothrombin Time INR 1.3 (0.8-1.1) H PTT 52 SEC (24-38) H D-Dimer (Gabriela) 0.98 ug/mlFEU (0.00-0.50) H Sodium Level 140 mmol/L (136-145) 140 mmol/L (136-145) Potassium Level 4.7 mmol/L (3.5-5.1) 4.4 mmol/L (3.5-5.1) Chloride Level 103 mmol/L (98-107) 103 mmol/L (98-107) Carbon Dioxide Level 25 mmol/L (21-32) 25 mmol/L (21-32) Anion Gap 12 (6-14) 12 (6-14) Blood Urea Nitrogen 29 mg/dL (8-26) H 26 mg/dL (8-26) Creatinine 1.3 mg/dL (0.7-1.3) 1.1 mg/dL (0.7-1.3) Estimated GFR (Cockcroft-Gault) 53.5 64.9 BUN/Creatinine Ratio 22 (6-20) H 24 (6-20) H Glucose Level 117 mg/dL (70-99) H 227 mg/dL (70-99) H Calcium Level 9.3 mg/dL (8.5-10.1) 9.2 mg/dL (8.5-10.1) Magnesium Level 1.6 mg/dL (1.8-2.4) L Total Bilirubin 0.5 mg/dL (0.2-1.0) 0.4 mg/dL (0.2-1.0) Aspartate Amino Transferase (AST) 18 U/L (15-37) 15 U/L (15-37) Alanine Aminotransferase (ALT) 22 U/L (16-63) 21 U/L (16-63) Alkaline Phosphatase 68 U/L (46-116) 71 U/L (46-116) Creatine Kinase 60 U/L (39-308) Creatine Kinase MB (Mass) 1.5 ng/mL (0.0-3.6) Creatine Kinase MB Relative Index % (0-4) Troponin I Quantitative 0.026 ng/mL (0.000-0.055) IW-Cye-V-Type Natriuretic Peptide 29155 pg/mL (0-449) H Total Protein 7.5 g/dL (6.4-8.2) 7.5 g/dL (6.4-8.2) Albumin 3.6 g/dL (3.4-5.0) 3.6 g/dL (3.4-5.0) Albumin/Globulin Ratio 0.9 (1.0-1.7) L 0.9 (1.0-1.7) L Lipase 401 U/L (73-393) H 211 U/L (73-393) Urine Collection Type Unknown Urine Color Yellow Urine Clarity Clear Urine pH 6.0 Urine Specific [place] 1.015 Urine Protein 30 mg/dL (NEG-TRACE) Urine Glucose (UA) Negative mg/dL (NEG) Urine Ketones (Stick) Negative mg/dL (NEG) Urine Blood Negative (NEG) Urine Nitrite Negative (NEG) Urine Bilirubin Negative (NEG) Urine Urobilinogen Dipstick 0.2 mg/dL (0.2 mg/dL) Urine Leukocyte Esterase Negative (NEG) Urine RBC 0 /HPF (0-2) Urine WBC Occ /HPF (0-4) Urine Bacteria 0 /HPF (0-FEW) Segmented Neutrophils % 89 % (35-66) H Band Neutrophils % 4 % (0-9) Lymphocytes % 6 % (24-48) L Monocytes % 1 % (0-10) Platelet Estimate Adequate (ADEQUATE) Amylase Level 34 U/L (25-115) Laboratory Tests 12/23/18 17:31 12/24/18 09:55 Laboratory Tests 12/23/18 17:31 12/24/18 09:55 ECHOCARDIOGRAM ECHOCARDIOGRAM <Conclusion> Technically difficult study. The Left Ventricle is mildly dilated. The left ventricular systolic function is mildly decreased. The Ejection Fraction is estimated at 40%. There is mild global hypokinesis of the left ventricle. There is no significant aortic valvular stenosis. Doppler and Color Flow revealed no significant aortic regurgitation. Doppler and Color Flow revealed mild mitral valve regurgitation. Doppler and Color Flow revealed trace to mild tricuspid regurgitation. DATE: 08/08/18 1502 STRESS TEST STRESS TEST Conclusion 1. Regadenoson cardioisotope stress test showed large mixed perfusion defect involving the inferior, inferolateral mac and extending into the lateral wall consistent with moderate infarction and small to moderate ischemia particularly in the lateral wall. 2. Base to mid inferior wall hypokinesis with ejection fraction calculated at 43%. 3. Intermediate risk for cardiac events. DATE: 08/11/17 1213 ASSESSMENT/PLAN ASSESSMENT/PLAN 1. Acute on chronic systolic HF; better compensated following IV diuresis 2. ICM; LVEF 40% 3. CAD s/p CABG; initial in and redo in 1999. Also s/p PCI/ multiple stents pre and post CABG in 1999. 4. PAFIB; presently AFIB with controlled rate. Recent event monitor notable for SR with 1st degree. Intermittent BBB, occasional episodes of junctional rhythm with lower rate 39, and occasional episodes of paroxysmal atrial tachycardia with aberrancy. ? tachy/bettina. On Eliquis for stroke prophylaxis. 5. Cholelithiasis, possible cholecystitis. HIDA scan pending for further miri luation 6. PAD s/p previous stenting; Follows with Dr. Wilkerson. +for claudication symptoms, no wounds. Will defer to vascular. 7. Hypertension; controlled 8. Hyperlipidemia; statin 9. Diabetes, II 10. Hypothyroidism Recommendations Additional diuresis Resume Amiodarone for rhythm maintenance Hold Eliquis for now pending GI workup Continue metoprolol for rate control. Supportive care Consider outpatient ischemic evaluation based upon history/risk factors. ANABELL CHEUNG APRN Dec 24, 2018 12:05
--- NOTE | 2018-12-24 12:26 | PDOC ---
Provider Note Provider Note Pt seen and examined ID consult dictated will follow Thank you IMP: Dyspnea acute on chronic systolic heart failure ICM DM PAF Cholelithiasis REC: Ceftriaxone and flagyl f/u HIDA scan cont supportive care ZENIA TRACEY MD Dec 24, 2018 12:26
[2018-12-24] MEDS: METOPROLOL SUCC 24HR ER 25 MG TAB.ER.24H. PO SCH (12:53)
[2018-12-24] MEDS ORDERED: cefTRIAXone IV Push 2 GM VIAL. IVP SCH (13:00)
--- NOTE | 2018-12-24 14:04 | RAD ---
CLINICAL HISTORY: Right upper quadrant pain, bloating COMPARISON: None available. TECHNIQUE: Radiopharmaceutical Dose: 5.4 mCi Tc99m mebrofenin intravenous Following administration of 5.4 mCi technetium 99m mebrofenin, images of the right upper quadrant were obtained FINDINGS: There is prompt uptake of radiotracer within the liver. At the 15 minute mamta, there is uptake within the gallbladder. In addition by the 30 minute image, radiotracer is seen within several small bowel loops. IMPRESSION: Prompt uptake within the gallbladder as well as excretion into the small bowel suggests absence of cystic or common duct occlusion. No scintigraphic evidence for acute cholecystitis. Radiation Dosimetry: The radiopharmaceutical used for this exam delivers approximately 0.9 mSv/mCi (90 mRem/mCi) Source: RADIATION DOSE ESTIMATES TO ADULTS AND CHILDREN, [place]; Effective dose RADAR Electronically signed by: Dennis Goss MD (12/24/2018 2:01 PM) [facility]
[2018-12-24] MEDS: OMEGA-3 FATTY ACIDS/FISH OIL 1,000 MG CAPSULE. PO SCH (14:49)
[2018-12-24] MEDS: MULTIVITAMIN with MINERAL TABLET. PO SCH (14:49)
[2018-12-24] MEDS: GEMFIBROZIL 600 MG TABLET. PO SCH ×2 (14:50→19:55)
[2018-12-24] MEDS: metroNIDAZOLE 500 MG TABLET PO SCH ×2 (14:50→19:56)
[2018-12-24] MEDS: glipiZIDE ER 2.5 MG TAB.ER.24 PO SCH ×2 (14:51→17:00)
[2018-12-24] MEDS: CHOLECALCIFEROL (VITAMIN D3) 1,000 UNIT TABLET PO SCH (14:52)
[2018-12-24] MEDS: APIXABAN 5 MG TABLET. PO SCH ×2 (14:58→19:56)
[2018-12-24 15:00] VITALS: BP 125/81
[2018-12-24] MEDS ORDERED: FUROSEMIDE 40 MG/4 ML VIAL. IVP ONE (15:00)
[2018-12-24] MEDS ORDERED: ANTI-COAG MONITOR BY PHARMACY. MC PRN (15:45)
[2018-12-24] MEDS: LEVOTHYROXINE 75 MCG TABLET PO SCH (16:15)
[2018-12-24] MEDS ORDERED: DEXTROSE 50% 25 GM / 50ML DISP.SYRIN. IV PRN (16:30)
[2018-12-24] MEDS: INSULIN LISPRO 300 UNITS/3 ML INSULN.PEN. SQ SCH (17:00)
[2018-12-24] MEDS ORDERED: metFORMIN 500 MG TABLET PO SCH (17:00)
[2018-12-24 19:26] VITALS: BP 125/61
[2018-12-24] MEDS ORDERED: ATORVASTATIN CALCIUM 20 MG TABLET PO SCH (21:00)
[2018-12-24] MEDS ORDERED: AMIODARONE HCL 200 MG TABLET. PO SCH (21:00)
--- NOTE | 2018-12-24 22:42 | CONS ---
DATE OF CONSULTATION: 12/24/2018 REFERRING PHYSICIAN: Mo Mckeon M.D. REASON FOR CONSULTATION: Gallstone pancreatitis. HISTORY OF PRESENT ILLNESS: A 78-year-old male who presented to the ER on 12/23/2018 with complaints of shortness of breath which started a couple of days prior to admission, gradually worsening to a degree that he had trouble catching his breath with some chest tightness. The patient was found to have acute CHF with BNP at 11,517 and lipase at 401. White count was normal at 5.6. The patient was afebrile. The patient had UA which was negative. The patient had a chest x-ray, which showed stable scarring in the right upper lobe, stable cardiomegaly. Abdominal CT and pelvis showed cholelithiasis and possible gallbladder wall thickening and surrounding edema. Findings could indicate cholecystitis. No other acute abnormality noted. Chest CTA showed no evidence of pulmonary embolism. There may be findings of CHF and cholelithiasis. The patient underwent ultrasound of the abdomen, which showed cholelithiasis along with gallbladder wall thickening consistent with cholecystitis. HIDA scan has been done, which is pending at this time. This morning, the patient denies any fevers or chills, has headache as he has not had any caffeinated products since hospitalization. Denies any visual disturbance. Denies any ear pain, sore throat, rash, chest pain with deep breathing, mucopurulent sputum production, nausea, vomiting, diarrhea, abdominal pain, symptoms, rash, sick contact or recent procedure. The patient was admitted last September for GI bleed and underwent GI evaluation. The patient was started on ceftriaxone and metronidazole. ID consult has been requested for antibiotic management. PAST MEDICAL HISTORY: Coronary artery disease with stent, peripheral vascular disease with stents, AFib, [place], ischemic cardiomyopathy, hypertension, hyperlipidemia, obesity, diabetes mellitus 2, hypothyroidism, CKD, peripheral neuropathy, GERD, colon polyps, diverticulitis, diverticulosis, anxiety and depression. MEDICATIONS: Doxycycline 100 mg x 1, metronidazole 500 mg x 1, ceftriaxone 1 gram IV x 1, acetaminophen, amiodarone, Eliquis, Lipitor, cholecalciferol, diphenhydramine, furosemide, Lopid, Glucotrol, hydrocodone, levothyroxine, metformin, methylprednisolone x 1, metoprolol, multivitamin and nitroglycerin. PAST SURGICAL HISTORY: Status post CABG, cardiac ablation, laminectomy, microdiscectomy, tonsillectomy and cataract removal. SOCIAL HISTORY: Quit smoking. ETOH rare. No drugs. Lives with . REVIEW OF SYSTEMS: Positive for shortness of breath, otherwise, negative. ALLERGIES: IODINATED CONTRAST, ORAL AND IV DYE. PHYSICAL EXAMINATION: VITAL SIGNS: Temperature 98, pulse 82, respiratory rate 22, blood pressure 150/74 and oxygen saturation 95% on room air. GENERAL: Alert and oriented x 3 male, sitting at the edge of bed, in no acute distress, pleasant and cooperative. HEENT: Normocephalic, atraumatic. Anicteric. No thrush. Oral mucosa moist. NECK: Supple. No JVD, no lymphadenopathy. LUNGS: Clear bilaterally. No wheezing. HEART: S1, S2 with no gallops or murmurs. ABDOMEN: Soft, nontender and nondistended. No rebound, no guarding. EXTREMITIES: No edema, no cyanosis and no clubbing. DERMATOLOGIC: Warm and dry. No generalized rash. NEUROLOGIC: Alert and oriented x 3, grossly nonfocal. PSYCHIATRIC: Cooperative, appropriate mood and affect. MUSCULOSKELETAL: Normal range of motion, changes suggestive of DJD. LABORATORY DATA: WBC 5.3, hemoglobin 11.1, hematocrit 36.2, platelets 174 and neutrophils 89. Sodium 140, potassium 4.4, chloride 103, bicarbonate 25, BUN 26, creatinine 1.1, glucose 227 and calcium 9.2. LFTs within normal limits. Albumin 3.6 and lipase 401, now 211. UA negative. IMAGIN. Chest x-ray as above. 2. Abdominal and pelvis CT as above. 3. Chest CTA as above. 4. Abdominal ultrasound as above. 5. HIDA scan pending at this time. IMPRESSION: 1. Dyspnea with acute congestive heart failure. 2. Acute on chronic systolic heart failure, improving with IV Lasix. 3. Ischemic cardiomyopathy. 4. Coronary artery disease status post coronary artery bypass grafting twice with percutaneous coronary intervention and multiple stents. 5. Paroxysmal atrial fibrillation. 6. Cholelithiasis, awaiting HIDA scan for further evaluation. 7. Peripheral arterial disease. 8. Hypertension. 9. Hyperlipidemia. 10. Diabetes 2. 11. Hypothyroidism. 12. Anemia. 13. Elevated lipase with no abdominal symptoms. RECOMMENDATIONS: 1. Continue empiric IV ceftriaxone and Flagyl. 2. We will deescalate soon. 3. Monitor labs and cultures. 4. GI and Cardiology following. 5. Continue supportive care. 6. Discussed with at bedside. Thank you for consulting Infectious Disease to participate in this patient's care. If you have any questions, do not hesitate to contact me. ZENIA TRACEY MD DR: RATNA/nts JOB#: [id number] / [id number]
[2018-12-24 23:30] VITALS: BP 103/61
[2018-12-25 02:18] VITALS: BP 122/69
[2018-12-25] MEDS: LEVOTHYROXINE 75 MCG TABLET PO SCH (05:55)
[2018-12-25 07:00] VITALS: BP 118/62
[2018-12-25] MEDS: INSULIN LISPRO 300 UNITS/3 ML INSULN.PEN. SQ SCH ×3 (08:00→17:00)
[2018-12-25] MEDS: CHOLECALCIFEROL (VITAMIN D3) 1,000 UNIT TABLET PO SCH (08:19)
[2018-12-25] MEDS: metroNIDAZOLE 500 MG TABLET PO SCH (08:19)
[2018-12-25] MEDS: glipiZIDE ER 2.5 MG TAB.ER.24 PO SCH ×2 (08:19→17:49)
[2018-12-25] MEDS: MULTIVITAMIN with MINERAL TABLET. PO SCH (08:20)
[2018-12-25] MEDS: METOPROLOL SUCC 24HR ER 25 MG TAB.ER.24H. PO SCH (08:20)
[2018-12-25] MEDS: OMEGA-3 FATTY ACIDS/FISH OIL 1,000 MG CAPSULE. PO SCH (08:21)
[2018-12-25] MEDS: GEMFIBROZIL 600 MG TABLET. PO SCH (08:21)
[2018-12-25] MEDS: APIXABAN 5 MG TABLET. PO SCH (08:21)
--- NOTE | 2018-12-25 08:38 | PDOC ---
SURGICAL PROGRESS NOTE Subjective Patient is doing quite well no complaints no abdominal pain reviewed HIDA scan showing normal clearance no signs of cholecystitis Vital Signs Vital Signs Date Time Temp Pulse Resp B/P (MAP) Pulse Ox O2 Delivery O2 Flow Rate FiO2 12/25/18 08:20 92 118/62 12/25/18 07:00 98.2 20 97 Room Air 98.2 12/24/18 11:00 2.0 I&O Intake and Output 12/25/18 06:59 Output Total 2100 ml Balance -2100 ml Output Urine Total 2100 ml PATIENT HAS A JAMA: No General: Alert, Oriented X3, Cooperative, No acute distress Abdomen: Normal bowel sounds, Soft, No tenderness Labs Laboratory Tests Test 12/23/18 17:31 12/23/18 20:17 12/24/18 09:55 12/24/18 17:21 White Blood Count 5.6 x10^3/uL (4.0-11.0) 5.3 x10^3/uL (4.0-11.0) Red Blood Count 4.08 x10^6/uL (4.30-5.70) 4.07 x10^6/uL (4.30-5.70) Hemoglobin 12.1 g/dL (13.0-17.5) 11.8 g/dL (13.0-17.5) Hematocrit 36.4 % (39.0-53.0) 36.2 % (39.0-53.0) Mean Corpuscular Volume 89 fL (79-100) 89 fL (79-100) Mean Corpuscular Hemoglobin 30 pg (25-35) 29 pg (25-35) Mean Corpuscular Hemoglobin Concent 33 g/dL (31-37) 33 g/dL (31-37) Red Cell Distribution Width 15.9 % (11.5-14.5) 15.8 % (11.5-14.5) Platelet Count 165 x10^3/uL (140-400) 174 x10^3/uL (140-400) Neutrophils (%) (Auto) 59 % (31-73) 89 % (31-73) Lymphocytes (%) (Auto) 27 % (24-48) 9 % (24-48) Monocytes (%) (Auto) 11 % (0-9) 2 % (0-9) Eosinophils (%) (Auto) 1 % (0-3) 0 % (0-3) Basophils (%) (Auto) 1 % (0-3) 0 % (0-3) Neutrophils # (Auto) 3.3 x10^3/uL (1.8-7.7) 4.7 x10^3/uL (1.8-7.7) Lymphocytes # (Auto) 1.5 x10^3/uL (1.0-4.8) 0.5 x10^3/uL (1.0-4.8) Monocytes # (Auto) 0.6 x10^3/uL (0.0-1.1) 0.1 x10^3/uL (0.0-1.1) Eosinophils # (Auto) 0.1 x10^3/uL (0.0-0.7) 0.0 x10^3/uL (0.0-0.7) Basophils # (Auto) 0.0 x10^3/uL (0.0-0.2) 0.0 x10^3/uL (0.0-0.2) Prothrombin Time 16.1 SEC (11.7-14.0) Prothromb Time International Ratio 1.3 (0.8-1.1) Activated Partial Thromboplast Time 52 SEC (24-38) D-Dimer (Gabriela) 0.98 ug/mlFEU (0.00-0.50) Sodium Level 140 mmol/L (136-145) 140 mmol/L (136-145) Potassium Level 4.7 mmol/L (3.5-5.1) 4.4 mmol/L (3.5-5.1) Chloride Level 103 mmol/L (98-107) 103 mmol/L (98-107) Carbon Dioxide Level 25 mmol/L (21-32) 25 mmol/L (21-32) Anion Gap 12 (6-14) 12 (6-14) Blood Urea Nitrogen 29 mg/dL (8-26) 26 mg/dL (8-26) Creatinine 1.3 mg/dL (0.7-1.3) 1.1 mg/dL (0.7-1.3) Estimated GFR (Cockcroft-Gault) 53.5 64.9 BUN/Creatinine Ratio 22 (6-20) 24 (6-20) Glucose Level 117 mg/dL (70-99) 227 mg/dL (70-99) Calcium Level 9.3 mg/dL (8.5-10.1) 9.2 mg/dL (8.5-10.1) Magnesium Level 1.6 mg/dL (1.8-2.4) Total Bilirubin 0.5 mg/dL (0.2-1.0) 0.4 mg/dL (0.2-1.0) Aspartate Amino Transf (AST/SGOT) 18 U/L (15-37) 15 U/L (15-37) Alanine Aminotransferase (ALT/SGPT) 22 U/L (16-63) 21 U/L (16-63) Alkaline Phosphatase 68 U/L (46-116) 71 U/L (46-116) Creatine Kinase 60 U/L (39-308) Creatine Kinase MB (Mass) 1.5 ng/mL (0.0-3.6) Creatine Kinase MB Relative Index % (0-4) Troponin I Quantitative 0.026 ng/mL (0.000-0.055) HN-Eyt-N-Type Natriuretic Peptide 05873 pg/mL (0-449) Total Protein 7.5 g/dL (6.4-8.2) 7.5 g/dL (6.4-8.2) Albumin 3.6 g/dL (3.4-5.0) 3.6 g/dL (3.4-5.0) Albumin/Globulin Ratio 0.9 (1.0-1.7) 0.9 (1.0-1.7) Lipase 401 U/L (73-393) 211 U/L (73-393) Urine Collection Type Unknown Urine Color Yellow Urine Clarity Clear Urine pH 6.0 Urine Specific Arvin 1.015 Urine Protein 30 mg/dL (NEG-TRACE) Urine Glucose (UA) Negative mg/dL (NEG) Urine Ketones (Stick) Negative mg/dL (NEG) Urine Blood Negative (NEG) Urine Nitrite Negative (NEG) Urine Bilirubin Negative (NEG) Urine Urobilinogen Dipstick 0.2 mg/dL (0.2 mg/dL) Urine Leukocyte Esterase Negative (NEG) Urine RBC 0 /HPF (0-2) Urine WBC Occ /HPF (0-4) Urine Bacteria 0 /HPF (0-FEW) Segmented Neutrophils % 89 % (35-66) Band Neutrophils % 4 % (0-9) Lymphocytes % 6 % (24-48) Monocytes % 1 % (0-10) Platelet Estimate Adequate (ADEQUATE) Amylase Level 34 U/L (25-115) Glucose (Fingerstick) 152 mg/dL (70-99) Test 12/25/18 07:19 Glucose (Fingerstick) 156 mg/dL (70-99) Laboratory Tests Test 12/24/18 09:55 12/24/18 17:21 12/25/18 07:19 White Blood Count 5.3 x10^3/uL (4.0-11.0) Red Blood Count 4.07 x10^6/uL (4.30-5.70) Hemoglobin 11.8 g/dL (13.0-17.5) Hematocrit 36.2 % (39.0-53.0) Mean Corpuscular Volume 89 fL (79-100) Mean Corpuscular Hemoglobin 29 pg (25-35) Mean Corpuscular Hemoglobin Concent 33 g/dL (31-37) Red Cell Distribution Width 15.8 % (11.5-14.5) Platelet Count 174 x10^3/uL (140-400) Neutrophils (%) (Auto) 89 % (31-73) Lymphocytes (%) (Auto) 9 % (24-48) Monocytes (%) (Auto) 2 % (0-9) Eosinophils (%) (Auto) 0 % (0-3) Basophils (%) (Auto) 0 % (0-3) Neutrophils # (Auto) 4.7 x10^3/uL (1.8-7.7) Lymphocytes # (Auto) 0.5 x10^3/uL (1.0-4.8) Monocytes # (Auto) 0.1 x10^3/uL (0.0-1.1) Eosinophils # (Auto) 0.0 x10^3/uL (0.0-0.7) Basophils # (Auto) 0.0 x10^3/uL (0.0-0.2) Segmented Neutrophils % 89 % (35-66) Band Neutrophils % 4 % (0-9) Lymphocytes % 6 % (24-48) Monocytes % 1 % (0-10) Platelet Estimate Adequate (ADEQUATE) Sodium Level 140 mmol/L (136-145) Potassium Level 4.4 mmol/L (3.5-5.1) Chloride Level 103 mmol/L (98-107) Carbon Dioxide Level 25 mmol/L (21-32) Anion Gap 12 (6-14) Blood Urea Nitrogen 26 mg/dL (8-26) Creatinine 1.1 mg/dL (0.7-1.3) Estimated GFR (Cockcroft-Gault) 64.9 BUN/Creatinine Ratio 24 (6-20) Glucose Level 227 mg/dL (70-99) Calcium Level 9.2 mg/dL (8.5-10.1) Total Bilirubin 0.4 mg/dL (0.2-1.0) Aspartate Amino Transf (AST/SGOT) 15 U/L (15-37) Alanine Aminotransferase (ALT/SGPT) 21 U/L (16-63) Alkaline Phosphatase 71 U/L (46-116) Total Protein 7.5 g/dL (6.4-8.2) Albumin 3.6 g/dL (3.4-5.0) Albumin/Globulin Ratio 0.9 (1.0-1.7) Amylase Level 34 U/L (25-115) Lipase 211 U/L (73-393) Glucose (Fingerstick) 152 mg/dL (70-99) 156 mg/dL (70-99) Problem List Problems Medical Problems: (1) Acute exacerbation of CHF (congestive heart failure) Status: Acute (2) Cholecystitis, acute Status: Acute (3) Gallstone Status: Acute (4) Pancreatitis Status: Acute Assessment/Plan Asymptomatic cholelithiasis no surgical plans at this time MATHIEU ROBLES MD Dec 25, 2018 08:38
[2018-12-25] MEDS ORDERED: PANTOPRAZOLE 40 MG TABLET.DR. PO SCH (09:00)
[2018-12-25] MEDS: POLYETHYLENE GLYCOL 3350 17 GM PACKET. PO SCH (09:00)
--- NOTE | 2018-12-25 09:18 | PDOC ---
Infectious Disease Note Subjective Subjective pt is feeling good, no complaints, ready to go home ROS ROS no n/v/d/fever Vital Sign Vital Signs Vital Signs Date Time Temp Pulse Resp B/P (MAP) Pulse Ox O2 Delivery O2 Flow Rate FiO2 12/25/18 08:20 92 118/62 12/25/18 07:00 98.2 20 97 Room Air 98.2 12/24/18 11:00 2.0 Physical Exam PHYSICAL EXAM GENERAL: Alert and oriented x 3 male, sitting at the edge of bed, in no acute distress, pleasant and cooperative. HEENT: Normocephalic, atraumatic. Anicteric. No thrush. Oral mucosa moist. NECK: Supple. No JVD, no lymphadenopathy. LUNGS: Clear bilaterally. No wheezing. HEART: S1, S2 with no gallops or murmurs. ABDOMEN: Soft, nontender and nondistended. No rebound, no guarding. EXTREMITIES: No edema, no cyanosis and no clubbing. DERMATOLOGIC: Warm and dry. No generalized rash. NEUROLOGIC: Alert and oriented x 3, grossly nonfocal. PSYCHIATRIC: Cooperative, appropriate mood and affect. MUSCULOSKELETAL: Normal range of motion, changes suggestive of DJD. Labs Lab Laboratory Tests Test 12/24/18 09:55 12/24/18 17:21 12/25/18 07:19 White Blood Count 5.3 x10^3/uL (4.0-11.0) Red Blood Count 4.07 x10^6/uL (4.30-5.70) Hemoglobin 11.8 g/dL (13.0-17.5) Hematocrit 36.2 % (39.0-53.0) Mean Corpuscular Volume 89 fL (79-100) Mean Corpuscular Hemoglobin 29 pg (25-35) Mean Corpuscular Hemoglobin Concent 33 g/dL (31-37) Red Cell Distribution Width 15.8 % (11.5-14.5) Platelet Count 174 x10^3/uL (140-400) Neutrophils (%) (Auto) 89 % (31-73) Lymphocytes (%) (Auto) 9 % (24-48) Monocytes (%) (Auto) 2 % (0-9) Eosinophils (%) (Auto) 0 % (0-3) Basophils (%) (Auto) 0 % (0-3) Neutrophils # (Auto) 4.7 x10^3/uL (1.8-7.7) Lymphocytes # (Auto) 0.5 x10^3/uL (1.0-4.8) Monocytes # (Auto) 0.1 x10^3/uL (0.0-1.1) Eosinophils # (Auto) 0.0 x10^3/uL (0.0-0.7) Basophils # (Auto) 0.0 x10^3/uL (0.0-0.2) Segmented Neutrophils % 89 % (35-66) Band Neutrophils % 4 % (0-9) Lymphocytes % 6 % (24-48) Monocytes % 1 % (0-10) Platelet Estimate Adequate (ADEQUATE) Sodium Level 140 mmol/L (136-145) Potassium Level 4.4 mmol/L (3.5-5.1) Chloride Level 103 mmol/L (98-107) Carbon Dioxide Level 25 mmol/L (21-32) Anion Gap 12 (6-14) Blood Urea Nitrogen 26 mg/dL (8-26) Creatinine 1.1 mg/dL (0.7-1.3) Estimated GFR (Cockcroft-Gault) 64.9 BUN/Creatinine Ratio 24 (6-20) Glucose Level 227 mg/dL (70-99) Calcium Level 9.2 mg/dL (8.5-10.1) Total Bilirubin 0.4 mg/dL (0.2-1.0) Aspartate Amino Transf (AST/SGOT) 15 U/L (15-37) Alanine Aminotransferase (ALT/SGPT) 21 U/L (16-63) Alkaline Phosphatase 71 U/L (46-116) Total Protein 7.5 g/dL (6.4-8.2) Albumin 3.6 g/dL (3.4-5.0) Albumin/Globulin Ratio 0.9 (1.0-1.7) Amylase Level 34 U/L (25-115) Lipase 211 U/L (73-393) Glucose (Fingerstick) 152 mg/dL (70-99) 156 mg/dL (70-99) Micro Microbiology 12/23/18 Blood Culture - Preliminary, Resulted NO GROWTH AFTER 1 DAY Objective Assessment 1. Dyspnea with acute congestive heart failure. 2. Acute on chronic systolic heart failure, improving with IV Lasix. 3. Ischemic cardiomyopathy. 4. Coronary artery disease status post coronary artery bypass grafting twice with percutaneous coronary intervention and multiple stents. 5. Paroxysmal atrial fibrillation. 6. Cholelithiasis, awaiting HIDA scan for further evaluation. 7. Peripheral arterial disease. 8. Hypertension. 9. Hyperlipidemia. 10. Diabetes 2. 11. Hypothyroidism. 12. Anemia. 13. Elevated lipase with no abdominal sympt Plan Plan of Care change antibiotics to po vantin supportive care call if questions probiotics MARIO TRACEY MD Dec 25, 2018 09:17
--- NOTE | 2018-12-25 09:36 | PDOC ---
Subjective: Subjective: No GI complaints. Breathing better. Objective: Vital Signs: Vital Signs Date Time Temp Pulse Resp B/P (MAP) Pulse Ox O2 Delivery O2 Flow Rate FiO2 12/25/18 08:20 92 118/62 12/25/18 07:00 98.2 20 97 Room Air 98.2 12/24/18 11:00 2.0 Labs: Laboratory Tests Test 12/24/18 09:55 12/24/18 17:21 12/25/18 07:19 White Blood Count 5.3 x10^3/uL Red Blood Count 4.07 x10^6/uL Hemoglobin 11.8 g/dL Hematocrit 36.2 % Mean Corpuscular Volume 89 fL Mean Corpuscular Hemoglobin 29 pg Mean Corpuscular Hemoglobin Concent 33 g/dL Red Cell Distribution Width 15.8 % Platelet Count 174 x10^3/uL Neutrophils (%) (Auto) 89 % Lymphocytes (%) (Auto) 9 % Monocytes (%) (Auto) 2 % Eosinophils (%) (Auto) 0 % Basophils (%) (Auto) 0 % Neutrophils # (Auto) 4.7 x10^3/uL Lymphocytes # (Auto) 0.5 x10^3/uL Monocytes # (Auto) 0.1 x10^3/uL Eosinophils # (Auto) 0.0 x10^3/uL Basophils # (Auto) 0.0 x10^3/uL Segmented Neutrophils % 89 % Band Neutrophils % 4 % Lymphocytes % 6 % Monocytes % 1 % Platelet Estimate Adequate Sodium Level 140 mmol/L Potassium Level 4.4 mmol/L Chloride Level 103 mmol/L Carbon Dioxide Level 25 mmol/L Anion Gap 12 Blood Urea Nitrogen 26 mg/dL Creatinine 1.1 mg/dL Estimated GFR (Cockcroft-Gault) 64.9 BUN/Creatinine Ratio 24 Glucose Level 227 mg/dL Calcium Level 9.2 mg/dL Total Bilirubin 0.4 mg/dL Aspartate Amino Transf (AST/SGOT) 15 U/L Alanine Aminotransferase (ALT/SGPT) 21 U/L Alkaline Phosphatase 71 U/L Total Protein 7.5 g/dL Albumin 3.6 g/dL Albumin/Globulin Ratio 0.9 Amylase Level 34 U/L Lipase 211 U/L Glucose (Fingerstick) 152 mg/dL 156 mg/dL BLOOD CULTURE Preliminary NO GROWTH AFTER 1 DAY Imaging: HIDA IMPRESSION: Prompt uptake within the gallbladder as well as excretion into the small bowel suggests absence of cystic or common duct occlusion. No scintigraphic evidence for acute cholecystitis. PE: GEN: NAD, sitting on edge of bed LUNGS: CTAB HEART: RRR ABD: S/ND/NT NEURO/PSYCH: A & O �3 A/P: CHF, A Fib, CAD, ICM Cholelithiasis -- Currently w/o GI complaints. Continue same. SERAFIN PARKER Dec 25, 2018 09:35
[2018-12-25] MEDS ORDERED: LACTOBACILLUS RHAMNOSUS GG 1 CAPSULE. PO SCH (10:00)
[2018-12-25 10:46] VITALS: BP 106/61
--- NOTE | 2018-12-25 12:31 | PDOC ---
CARDIO Progress Notes Date and Time Date of Service 12/25/18 Time of Evaluation 1215 Subjective Subjective: No Chest Pain, Other Vitals Vitals Vital Signs Date Time Temp Pulse Resp B/P (MAP) Pulse Ox O2 Delivery O2 Flow Rate FiO2 12/25/18 10:46 98.0 68 20 106/61 (76) 96 Room Air 98.0 12/24/18 11:00 2.0 Weight Weight [ ] Input and Output Intake and Output Intake and Output 12/25/18 07:00 Output Total 2100 ml Balance -2100 ml Output Urine Total 2100 ml Laboratory Labs Laboratory Tests Test 12/24/18 17:21 12/25/18 07:19 Glucose (Fingerstick) 152 mg/dL (70-99) 156 mg/dL (70-99) Microbiology Micro Microbiology 12/23/18 Blood Culture - Preliminary, Resulted NO GROWTH AFTER 1 DAY Physical Exam HEENT: Neck Supple W Full Motion Chest: Symmetric LUNGS: Clear to Auscultation Heart: S1S2, irregularly irregular Abdomen: Soft N/T Extremities: No Edema Neurology: alert, oriented, follow commands Assessment Assessment 1. Acute on chronic systolic HF; better compensated following IV diuresis 2. ICM; LVEF 40% 3. CAD s/p CABG; initial in and redo in 1999. Also s/p PCI/ multiple stents pre and post CABG in 1999. 4. PAFIB; presently AFIB with controlled rate. 5. Cholelithiasis; HIDA scan okay. 6. PAD s/p previous stenting; Follows with Dr. Wilkerson. +for claudication symptoms, no wounds. Will defer to vascular. 7. Hypertension; controlled 8. Hyperlipidemia; statin 9. Diabetes, II 10. Hypothyroidism Recommendations Start oral Lasix Amiodarone for rhythm maintenance Resume Eliquis for stroke prevention Continue metoprolol for rate control. Supportive care Consider outpatient ischemic evaluation based upon history/risk factors. May discharge from CV standpoint and f/u in our office with Dr. Calzada as scheduled ANABELL CHEUNG APRN Dec 25, 2018 12:31
[2018-12-25] MEDS ORDERED: POTASSIUM CHLORIDE 10 MEQ TABLET.ER. PO SCH (13:43)
[2018-12-25] MEDS ORDERED: FUROSEMIDE 40 MG TABLET. PO SCH (13:45)
[2018-12-25 15:00] VITALS: BP 115/59
[2018-12-25] MEDS ORDERED: POTA10TA12 PO (15:44)
[2018-12-25] MEDS ORDERED: CEFD300C PO (15:44)
[2018-12-25] MEDS ORDERED: FURO40TA4 PO (15:44)
[2018-12-25] MEDS ORDERED: LACT1CAP19 PO (15:44)
--- NOTE | 2018-12-25 15:58 | PDOC3 ---
Discharge Summary [facility] Date of Admission: Dec 23, 2018 Discharge Date: Dec 25, 2018 Admitting Diagnosis acute on chronic diastolic heart failure Final Diagnosis Acute on chronic diastolic heart failure cholelithiasis mild pancreatitis CONSULTS cardiology, GI, surgery Procedures none Brief Hospital Course Mr. Mayfield is a 78 old who presented with progressive shortness of breath after a recent fall and lung contusion and treated for: acute on chronic diastolic heart failure - diuresed with IV Lasix and now on higher po dose than admission, cardiology consulted acute cholecystitis - surgery consulted but felt his exam findings and studies were not consistent with need for surgery mild gallstone pancreatitis - GI consulted, resolved with overnight bowel rest recent GI bleed - Hgb nearly back to normal with iron but he required prior transfusions Patient History: Family history: Cardiomyopathy (situation) 32 MOTHER Family history: Cardiovascular disease (situation) 33 FATHER Family history: Depression (situation) 32 MOTHER Family history: Diabetes mellitus (situation) 33 FATHER Family history: Hypertension (situation) 33 FATHER Disposition home CONDITION AT DISCHARGE: Improved, Stable Diet low sodium Scheduled Amiodarone Hcl (Amiodarone Hcl), 200 MG PO HS, (Reported) Apixaban (Eliquis), 5 MG PO BID, (Reported) Cefdinir (Cefdinir), 300 MG PO BID Cholecalciferol (Vitamin D3) (D3-2000), 2,000 UNIT PO DAILY, (Reported) Furosemide (Furosemide), 40 MG PO DAILY Gemfibrozil (Gemfibrozil), 600 MG PO BID, (Reported) Glipizide (Glipizide Er), 5 MG PO BID76, (Reported) Lactobacillus Rhamnosus Gg (Culturelle), 1 CAP PO BID Lansoprazole (Prevacid), 15 MG PO 4X/WEEK, (Reported) Levothyroxine Sodium (Levothyroxine Sodium), 1 TAB PO DAILY, (Reported) Metformin Hcl (Metformin Hcl), 500 MG PO DAILYBFRSUP, (Reported) Metoprolol Succinate (Metoprolol Succinate ( Xl )), 25 MG PO DAILY Multivitamin (Multi-Vitamin Daily), 1 EACH PO DAILY, (Reported) [place]-3 Fatty Acids/Fish Oil (Fish Oil 1,000 Mg Capsule), 1 EACH PO DAILY, (Reported) Potassium Chloride (Klor-Con 10), 10 MEQ PO DAILYWBKFT Simvastatin (Simvastatin), 40 MG PO HS, (Reported) Scheduled PRN Acetaminophen (Tylenol Extra Strength), 1,000 MG PO PRN Q6HRS PRN for MILD PAIN / TEMP, (Reported) Melatonin (Melatonin), 10 MG PO QHS PRN for INSOMNIA, (Reported) Nitroglycerin (Nitrostat), 0.4 MG SL PRN Q5MIN PRN for CHEST PAIN, (Reported) Polyethylene Glycol 3350 (Miralax), 1 PACKET PO PRN PRN for CONSTIPATION, (Reported) Psyllium Husk (Natural Fiber), Unknown Dose PO TID PRN for CONSTIPATION, (Reported) Discontinued Medications Hydrocodone/Apap 5-325 ([place] 5-325 Tablet), 1-2 EACH PO PRN Q6HRS PRN for PAIN Follow Up Monday Zakiya HERNANDEZ MD Dec 25, 2018 3:58 pm
--- NOTE | 2018-12-25 17:57 | NUR ---
Discharge Note: LELO MENDOZA [address] [place] [address] Discharge instructions and discharge home medications reviewed with Patient and a copy given. All questions have been answered and understanding verbalized. The following instructions and handouts were given: CHF info, gallstone info, pancreatitis info, shortness of breath info, discharge instructions. Discontinued lines and drains: Peripheral IV intact. Patient discharged to Home or Self Care with Spouse via Wheelchair at 1757.
[2018-12-25] MEDS ORDERED: CEFDINIR 300 MG CAPSULE PO SCH (21:00)
[2018-12-26] MEDS ORDERED: metFORMIN 500 MG TABLET PO SCH (17:00)
== END 2018-12-25 17:57 | disposition home or self-care (01) | DRG 438 ==
LOC: ER 17:04 → 2 NORTH 21:00 → UNDODISIN 12-25 17:57
PROVIDERS: ADMIT Family Medicine; ATTEND Family Medicine
DX: K85.10 Biliary acute pancreatitis without necrosis or infection (principal); I50.43 Acute on chronic combined systolic (congestive) and diastolic (congestive) heart failure; I13.0 Hypertensive heart and chronic kidney disease with heart failure and stage 1 through stage 4 chronic kidney disease, or unspecified chronic kidney disease; I47.1 Supraventricular tachycardia; K80.00 Calculus of gallbladder with acute cholecystitis without obstruction; D64.9 Anemia, unspecified; E03.9 Hypothyroidism, unspecified; E11.22 Type 2 diabetes mellitus with diabetic chronic kidney disease; E11.42 Type 2 diabetes mellitus with diabetic polyneuropathy; E11.51 Type 2 diabetes mellitus with diabetic peripheral angiopathy without gangrene; E78.00 Pure hypercholesterolemia, unspecified; E78.5 Hyperlipidemia, unspecified; F32.9 Major depressive disorder, single episode, unspecified; F41.9 Anxiety disorder, unspecified; G47.33 Obstructive sleep apnea (adult) (pediatric); I25.10 Atherosclerotic heart disease of native coronary artery without angina pectoris; I25.5 Ischemic cardiomyopathy; E66.9 Obesity, unspecified; M19.042 Primary osteoarthritis, left hand; M19.041 Primary osteoarthritis, right hand; I48.0 Paroxysmal atrial fibrillation; J44.9 Chronic obstructive pulmonary disease, unspecified; K21.9 Gastro-esophageal reflux disease without esophagitis; K57.30 Diverticulosis of large intestine without perforation or abscess without bleeding; N18.9 Chronic kidney disease, unspecified; Z81.8 Family history of other mental and behavioral disorders; Z82.49 Family history of ischemic heart disease and other diseases of the circulatory system; Z83.3 Family history of diabetes mellitus; Z86.010 Personal history of colon polyps; Z95.1 Presence of aortocoronary bypass graft; Z95.5 Presence of coronary angioplasty implant and graft; Z95.820 Peripheral vascular angioplasty status with implants and grafts; Z68.33 Body mass index [BMI] 33.0-33.9, adult; Z91.041 Radiographic dye allergy status; Z79.899 Other long term (current) drug therapy; I25.2 Old myocardial infarction; Z98.49 Cataract extraction status, unspecified eye
CPT/HCPCS: 36415; 71046; 71275; 74176; 76705; 78226; 80053; 81001; 82150; 82553; 82962; 83690; 83735; 83880; 84484; 85007; 85025; 85379; 85610; 85730; 87040; 93005; 94640; 96365; 96366; 96367; 96374; 96375; A9537; J0696; J1200; J1815; J1940; J2930; J3490; J7620; Q9967; 99285-25